=== PATIENT | female | born 1970 | race Caucasian/White ===

== ENCOUNTER 2020-01-15 16:19 | Emergency (ER) | payer OTHER, SELFPAY ==
[2020-01-15 16:24] VITALS: BP 128/80; PULSE 83; RESP 18; TEMP 37.2; O2SAT 100; BMI 29.2
[2020-01-15] MEDS: Lidocaine HCl 2 % MPF 5 ML VIAL SUBCUT (17:35)
--- NOTE | 2020-01-15 17:36 | PC.NURSE ---
Judy GREER to bedside for suture to left middle and ring finger
[2020-01-15 18:00] VITALS: BP 138/94; PULSE 81; RESP 16; O2SAT 99
--- NOTE | 2020-01-15 18:35 | ED_ITS ---
HPI - Wound/Laceration General Chief Complaint: Wound/Laceration Stated Complaint: laceration Time Seen by Provider: 01/15/20 17:18 Source: patient Mode of arrival: ambulatory Limitations: no limitations History of Present Illness HPI narrative: Patient tells me she was trimming her bushes with a shuttlecock feather trimmer and missed causing a laceration to her left middle and index finger. Her tetanus is out of date. She was seen at urgent care referred to the emergency department for further bleeding. Onset (ago): day(s) Place: home Patient tetanus UTD: No Context: accidental Associated symptoms: none Related Data Home Medications Medication Instructions Recorded Confirmed citalopram 20 mg tablet 20 mg PO DAILY 01/15/20 01/15/20 Allergies Allergy/AdvReac Type Severity Reaction Status Date / Time amoxicillin Allergy Intermediate Rash Verified 01/15/20 16:30 TAPE,PLASTIC Allergy Intermediate RASH Uncoded 12/14/19 19:18 ITCHING Review of Systems Review of Systems: Yes all other systems are reviewed and are negative Constitutional: Constitutional: Reports no additional constitutional complaints, Denies body ache(s), Denies chills, Denies fever(s), Denies headache(s) and Denies weakness Eyes: Eyes: Reports no additional eye complaints and Denies change in vision ENT: Reports system reviewed and no additional complaints, except as documented, Denies dizziness, Denies headache(s), Denies nasal congestion, Denies nasal discharge and Denies neck pain Cardiovascular: Cardiovascular: Reports no additional cardiovascular complaints, Denies chest pain, Denies leg edema and Denies dyspnea Respiratory: Respiratory: Reports no additional respiratory complaints, Denies cough and Denies dyspnea Gastrointestinal: Gastrointestinal: Reports no additional gastrointestinal complaints, Denies abdominal pain, Denies diarrhea, Denies nausea and Denies vomiting Genitourinary: Genitourinary: Reports no additional female genitourinary complaints and Denies urinary incontinence Musculoskeletal: Musculoskeletal: Reports no additional musculoskeletal complaints, Denies back pain, Reports arthralgias, Denies joint swelling, Denies neck pain, Denies numbness and Denies tingling Integumentary/Breasts: Skin/Breast: Reports system reviewed and no additional complaints, except as docu and Denies rash Neurologic: Reports system reviewed and no additional complaints, except as documented, Denies Abnormal speech present, Denies dizziness, Denies headache(s), Denies numbness, Denies tingling and Denies weakness PMF Past Medical History Attestation statement: The following information was validated with the patient. Source: obtained from family and nursing notes reviewed Social History Social History Smoking Status: Never smoker Smoked in Last 30 Days: No Use of substances other than those prescribed or required for medical reasons: No Advance Directives: No Advance Directives Information Provided: No Physical Exam Vital Signs: Vital Signs: Vital Signs Temp Pulse Resp BP Pulse Ox 01/15/20 18:00 81 16 138/94 H 99 01/15/20 16:24 98.9 F 83 18 128/80 100 Body Mass Index 29.2 Const: General: cooperative, healthy appearing, comfortable and no acute distress Orientation/consciousness: patient oriented x3 Limitations: no limitations HENMT: Head: Yes normal to inspection Ears: hearing grossly normal bilaterally General nose exam: Normal external nose present Face and sinus: Yes normal facial exam Mouth: Normal oral and palatal mucosa present Throat: Yes posterior oropharynx normal Eyes: General: appearance normal, both eyes and all related structures Pupils: Equal, round and reactive pupils present Neck: Neck: Yes normal visual inspection Chest: Chest palpation & inspection: normal inspection of the chest Resp: Effort & Inspection: normal respiratory effort Auscultation: clear to auscultation bilaterally Cardio: Rate: regular rate Rhythm: regular rhythm Peripheral pulses: Pe ripheral pulses 2+ throughout GI: Inspection: Yes normal to inspection Palpation (GI): Soft to palpation and nontender Auscultation: normal bowel sounds Back/Spine/Pelvis: Thoracic/Lumbar Spine: thoracic and lumbar spine normal to inspection Skin: General skin exam: no rashes or lesions noted Neuro: General: patient oriented x3, no focal motor deficits and normal sensation to monofilament Cranial nerves: Yes Equal, round and reactive pupils present Cognition (Neuro): normal cognition Speech: No Abnormal speech present Gait exam (Neuro): Normal gait present Motor exam (neuro): 5/5 motor strength present throughout Extrem: Other: To the volar aspect of the distal 3rd and 4th digits there are 2 lacerations. Over the 4th digit there is approximately 1 cm laceration noted to the volar aspect. Full range of motion of affected digit. Neurovascularly intact distally. Bleeding is controlled. Over the 3rd digit there is approximately a 2 cm laceration to the volar aspect. There is slight brisk bleeding noted. Full range of motion of the affected digit. Neurovascularly intact distally. General: Yes normal to inspection Procedures Laceration Laceration 1: Site: other ( Fourth digit) Side (If applicable): left Size (cm): 1 Description: linear Depth: simple, single layer Local Anesthetic: lidocaine 2% Pre-repair: wound explored and irrigated extensively Skin layer closed with: nylon Size (cm): 5-0 Number of sutures: 3 Technique: simple, interrupted Laceration 2: Site: other ( 3rd digit) Side (If applicable): left Size (cm): 2 Description: linear Depth: simple, single layer Local Anesthetic: lidocaine 2% Pre-repair: wound explored and irrigated extensively Skin layer closed with: nylon Size (cm): 5-0 Number of sutures: 4 Technique: simple, interrupted Discharge Plan Discharge Clinical Impression: Laceration Patient Disposition: Home, Self-Care Instructions: Finger Laceration (ED) Additional Instructions: sutures out in 7-10 days wash every day with soap and water Prescriptions: No Action citalopram 20 mg tablet 20 mg PO DAILY RF: 0 Referrals: José Luis Pepe MD [Primary Care Provider] - 2 days Interventions: ED Discharge Assessment Last Done: 01/15/20 18:21 Discharge Date/Time: 01/15/20 18:22
== END 2020-01-15 18:22 | disposition home or self-care (01) ==
PROVIDERS: Emergency Provider Emergency Medicine; PCP Internal Medicine
DX: S61.215A Laceration without foreign body of left ring finger without damage to nail, initial encounter (principal); S61.213A Laceration without foreign body of left middle finger without damage to nail, initial encounter; S60.419A Abrasion of unspecified finger, initial encounter; M79.642 Pain in left hand; W27.8XXA Contact with other nonpowered hand tool, initial encounter; Y93.H2 Activity, gardening and landscaping; Y92.007 Garden or yard of unspecified non-institutional (private) residence as the place of occurrence of the external cause; Y99.9 Unspecified external cause status; Z79.899 Other long term (current) drug therapy; Z23 Encounter for immunization
CPT/HCPCS: 12002; 90471; 90715; 99284

== ENCOUNTER 2021-11-27 14:19 | Outpatient (REF) | payer OTHER, SELFPAY ==
[2021-11-27 16:33] LABS: MANUAL DIFF FLAG NO
[2021-11-27 16:38] LABS: Basophils Percent Auto 0.7 % (0-2); Eosinophils Absolute Auto 0.1 X10*3/uL (0.0-0.4); Eosinophils Percent Auto 2.5 % (0-4); Hematocrit 42.5 % (37.0-47.0); Hemoglobin 14.4 g/dl (12.0-16.0); Imm Gran Abs Auto 0.02 X10*3/uL (0.00-0.03); Imm Gran Pct Auto 0.4 % (0.0-0.4); Lymphocytes Absolute Auto 2.8 X10*3/uL (1.2-4.9); Lymphocytes Percent Auto 48.7 % (20-40); Mean Corpuscular HGB Conc 33.9 g/dl (31.0-35.0); Mean Corpuscular Hemoglobin 32.2 pg (27.0-33.0); Mean Corpuscular Volume 95.1 fL (80.0-98.0); Mean Platelet Volume 10.7 fL (9.4-12.3); Monocytes Absolute Auto 0.5 X10*3/uL (0.1-1.2); Monocytes Percent Auto 7.9 % (2-11); Neutrophils Absolute Auto 2.3 x10*3/uL (2.0-8.3); Neutrophils Percent Auto 39.8 % (45-73); Platelet Count 255 X10*3/uL (160-400); Red Blood Count 4.47 X10*6/uL (4.20-5.50); White Blood Count 5.7 X10*3/uL (4.8-10.8)
[2021-11-27 16:51] LABS: Alanine Aminotransferase 13 U/L (0-31); Albumin Level 4.6 g/dL (3.5-5.0); Alkaline Phosphatase 45 U/L (39-117); Anion Gap 16 (12-20); Aspartate Amino Transferase 13 U/L (5-31); Bilirubin Total 0.6 mg/dL (0.0-1.0); Blood Urea Nitrogen 17 mg/dL (9-16); Calcium 9.5 mg/dL (8.4-10.2); Carbon Dioxide 24 mmol/L (22-29); Chloride 103 mmol/L (96-108); Cholesterol 202 mg/dL; Estimated Glomerular Filt Rate > 60; Glucose Fasting 74 mg/dL (60-99); HDL Cholesterol 58 mg/dL; LDL Cholesterol Calculated 135 mg/dl; Potassium 4.4 mmol/L (3.3-5.1); Rheumatoid Factor < 15.0 IU/mL (<15.0); Sodium 139 mmol/L (135-145); Total Protein 6.9 g/dL (6.5-8.0); Triglycerides 49 mg/dL
[2021-11-29 15:21] LABS: CRP High Sensitivity 1.9 mg/L
[2021-12-01 16:56] LABS: Anti Nuclear Antibody Screen NEGATIVE (NEGATIVE)
== END 2021-11-27 14:20 | disposition home or self-care (01) ==
LOC: HO.HMGCLDS 14:19
PROVIDERS: Internal Medicine; PCP Internal Medicine; Visit Provider Internal Medicine
DX: Z00.01 Encounter for general adult medical examination with abnormal findings (principal); K64.4 Residual hemorrhoidal skin tags; M25.50 Pain in unspecified joint; F32.A Depression, unspecified; F41.9 Anxiety disorder, unspecified
CPT/HCPCS: 36415; 80053; 80061; 82306; 84443; 85025; 86038; 86039; 86141; 86431

== ENCOUNTER 2022-06-11 10:56 | Day surgery (SDC) | payer OTHER, SELFPAY ==
[2022-06-08 12:45] VITALS: BMI 28.5
--- NOTE | 2022-06-10 13:00 | P.CONAN_ITS ---
Documented by User: Jennifer Lamb NP 06/10/22 13:01 HPI - Anesthesia Eval Consult details Narrative: 52yo F for Colonoscopy PMFSH Active Problems Active Problems: All Active Problems (Updated 12/25/21 @ 10:04 by GEGE Soriano) Pre-op examination (Acute) Polyarthralgia (Acute) External hemorrhoids (Acute) Anxiety and depression (Acute) Laceration of left middle finger (Acute) Past Medical History Medical History Anxiety and depression External hemorrhoids History of cystocele HX: benign breast biopsy Polyarthralgia Tear of meniscus of left knee Family History Family History Sister Breast cancer, Onset Age: 38 Mother Breast cancer Father Esophageal cancer Maternal Uncle Colon cancer Surgical History Surgical History H/O arthroscopy of shoulder Hx of cervical discectomy Hx of LASIK Social History Social History Housing: House Patient Tobacco Use Status: Never used Tobacco e-Cigarette/Vaping Use: Never Used Are you DNR?: No Advance Directives: No Advance Directives Information Provided: Yes Nutrition Risks: No Nutritional Risk service: No Current occupational status: employed Cognitive needs: No Hearing needs: No Vision needs: Yes Meds Allergies Allergy/AdvReac Type Severity Reaction Status Date / Time TAPE,PLASTIC Allergy Intermediate rash/itchin Uncoded 06/08/22 12:43 g Home Medications Medication Instructions Recorded Confirmed Last Taken Type levonorgestrel 20.4 mcg/24 hrs (8 intrauterine 11/25/21 Unknown History yrs) 52 mg intrauterine device (Liletta) Exam Exam Date and Time: June 10, 2022 1300 Height,Weight and Vital Signs: Height 5 ft Weight 66.224 kg Pertinent Lab Results Pertinent Lab Results: Laboratory Tests 11/27/21 11/27/21 14:37 14:37 WBC 5.7 Hgb 14.4 Hct 42.5 Plt Count 255 Sodium 139 Potassium 4.4 Chloride 103 Carbon Dioxide 24 BUN 17 H Creatinine 0.69 Assessment and Plan Assessment Anesthesia Assessment: Chart Reviewed Documented by User: Sid Henao MD 06/11/22 11:53 PMFSH Past Medical History Medical History Anxiety and depression External hemorrhoids History of cystocele HX: benign breast biopsy Polyarthralgia Tear of meniscus of left knee Family History Family History Sister Breast cancer, Onset Age: 38 Mother Breast cancer Father Esophageal cancer Maternal Uncle Colon cancer Family history of problems with anesthesia: No Surgical History Surgical History H/O arthroscopy of shoulder Hx of cervical discectomy Hx of LASIK History of Problems with Anesthesia: No Social History Social History Housing: House Patient Tobacco Use Status: Never used Tobacco e-Cigarette/Vaping Use: Never Used Are you DNR?: No Advance Directives: No Advance Directives Information Provided: Yes Nutrition Risks: No Nutritional Risk service: No Current occupational status: employed Cognitive needs: No Hearing needs: No Vision needs: Yes Meds Allergies Allergy/AdvReac Type Severity Reaction Status Date / Time TAPE,PLASTIC Allergy Intermediate rash/itchin Uncoded 06/08/22 12:43 g Home Medications Medication Instructions Recorded Confirmed Last Taken Type levonorgestrel 20.4 mcg/24 hrs (8 intrauterine 11/25/21 Unknown History yrs) 52 mg intrauterine device (Liletta) Exam Airway Mallampati Class: I TM Dist: >3cm Neck ROM: Full Loose/Missing/Broken Teeth: No Heart: ok Lungs: ok Assessment and Plan Final Anesthetic Review Family History of Problems with Anesthesia: No History of Problems with Anesthesia: No NPO: Yes ASA Class: II Final Preanesthetic Review: No Changes in Pt Med Stat, Meds/Allgs Chart Re viewed, Consent Obtained/Reviewed and Anes Risks/Benef Reviewed Patient Risk: Low Procedure Risk: Low Anesthetic Plan Anesthetic Plan: MAC: and Agree w/ Assess. and Plan Disposition: Standard PACU
[2022-06-11 11:36] LABS: UPreg QC Valid YES; Urine Pregnancy NEGATIVE (NEGATIVE)
[2022-06-11] MEDS: Lactated Ringers 1,000 ML 100 ML IVCONT (11:39)
[2022-06-11 11:47] VITALS: BP 116/87; PULSE 81; RESP 18; TEMP 37.1; O2SAT 99
--- NOTE | 2022-06-11 11:49 | MHC.SHP ---
Pre-Procedural Eval Section A Date of Service: 06/11/22 Section B Chief Complaint: screening Details of Present Illness: uncle with hx of crc aged 50 Relevant Family History (Specify if Yes): Yes Relevant Social History: None Present Medications: see Short Stay Collaborative assessment Medical History: Significant History (Anxiety and depression External hemorrhoids History of cystocele HX: benign breast biopsy Polyarthralgia Tear of meniscus of left knee) History of Previous Operations: Relevant previous surgery/procedure and date(s) (H/O arthroscopy of shoulder Hx of cervical discectomy Hx of LASIK) Allergies: Allergies Allergy/AdvReac Type Severity Reaction Status Date / Time TAPE,PLASTIC Allergy Intermediate rash/itchin Uncoded 06/08/22 12:43 g Review of Systems Sugical H&P ROS: Negative: Constitution, Cardiovascular, Respiratory, Neurological, Psychiatric, Hem-Onc, Allergic/Immunologic, Gastrointestinal, Genitourinary, Musculoskeletal, Integumentary, Endocrine and Eyes/Ears/Nose/Throat Exam Surgical H&P Exam: Normal: HEENT, Normal: Heart, Normal: Lungs, Normal: Extremities, Normal: Abdomen, Normal: Skin and Normal: Neurological Plan Diagnosis/Plan: Unchanged I have reviewed the history and physical and performed a pertinent physical examination on my patient. No changes have occurred unless specified. Time Spent With Patient Time: Total time managing care of this patient today ____ minutes.
--- NOTE | 2022-06-11 12:03 | W.PM.OPN ---
Operative Note Operative Note Date of Service: 06/11/22 Narrative: Operative Information Procedure Description: Colonoscopy Indication: screening Anesthesia: MAC COLONOSCOPY Instrument: Olympus variable stiffness pediatric scope 190L Colonoscopy Monitoring: Vital signs and clinical assessment, continuous EKG monitoring, Pulse oximetry, Carbon Dioxide monitoring and blood pressure monitoring were done throughout the procedure. Colon withdrawal time was 10 minutes. Procedure: The patient was placed in the left lateral decubitis position and pre-procedure medications were administered. After a digital rectal examination of the ano-rectum, the video colonoscope was inserted into the rectum and advanced through the colon to the cecum/TI. The colonoscope was slowly withdrawn in a retrograde panoramic fashion and the colon mucosa was carefully examined including a retroflexed view of the rectum. Findings and interventions are described below. Procedure Difficulty: easy Findings: Terminal Ileum-normal Cecum:normal Ascending Colon: few scattered diverticula incl inverted diverticulum Transverse Colon -normal Descending Colon:normal Sigmoid Colon: moderate diverticulosis Rectum: Retroflexion with small internal hemorrhoids, grade I, at 12 cm from anal verge pedunculated polyp noted -injected with 1 cc of epinephrine then removed with hot snare and surrounding area ablated with soft tip coag, then one clip applied to close defect Anorectum - normal Colon preparation: [place] Bowel Preparation Scale Right colon; 2 Transverse colon: 3 Left colon; 3 (0 = Unprepared colon segment with mucosa not seen due to solid stool that cannot be cleared. 1 = Portion of mucosa of the colon segment seen, but other areas of the colon segment not well seen due to staining, residual stool and/or opaque liquid. 2 = Minor amount of residual staining, small fragments of stool and/or opaque liquid, but mucosa of colon segment seen well. 3 = Entire mucosa of colon segment seen well with no residual staining, small fragments of stool or opaque liquid) Impression and Post Procedure Diagnosis: polyp internal hemorrhoids diverticular disease Plan: High fiber diet leaflet Avoid straining at stool, epsom salts and sitz bath, anusol supps or cream Repeat Colonoscopy in 3 years or earlier if clinically indicated Above findings were reviewed with the patient and relevant handouts were provided if indicated.
[2022-06-11 12:33] VITALS: BP 96/48; PULSE 84; RESP 18; TEMP 36.4; O2SAT 96
[2022-06-11 12:48] VITALS: BP 98/66; PULSE 78; RESP 16; O2SAT 98
[2022-06-11 12:56] VITALS: BP 112/67; PULSE 76; RESP 16; TEMP 36.2; O2SAT 98
== END 2022-06-11 13:39 | disposition home or self-care (01) ==
PROVIDERS: Anesthesiology; PCP Internal Medicine; Visit Provider Internal Medicine Gastroenterology
PROC: 0DJD8ZZ Inspection of Lower Intestinal Tract, Via Natural or Artificial Opening Endoscopic (ICD-10-PCS; CPT 45378; principal; 2022-06-11 12:00)
DX: Z12.11 Encounter for screening for malignant neoplasm of colon (principal); D12.8 Benign neoplasm of rectum; K57.30 Diverticulosis of large intestine without perforation or abscess without bleeding; K64.0 First degree hemorrhoids; K64.4 Residual hemorrhoidal skin tags; M25.50 Pain in unspecified joint; F41.8 Other specified anxiety disorders; L23.1 Allergic contact dermatitis due to adhesives; Z79.899 Other long term (current) drug therapy; Z98.890 Other specified postprocedural states
CPT/HCPCS: 45385; 45381; 81025; 88305; J0171

== ENCOUNTER → 2022-06-25 08:00 | Outpatient (BNVA) | payer OTHER, SELFPAY | PROVIDERS: PCP Internal Medicine; Referring Provider Internal Medicine; Visit Provider Nurse Practitioner | DX: Z13.89 Encounter for screening for other disorder (principal) ==

== ENCOUNTER 2022-11-26 07:52 | Outpatient (AMB) | payer OTHER, SELFPAY ==
--- NOTE | 2022-11-26 07:59 | MHC.PC.OV ---
Vital Signs 11/26/22 08:01 Height 5 ft Weight 138 lb BMI 26.9 BP 98/60 Blood Pressure Location Lt brachial Position Sitting Pulse 90 Pulse Source Pulse Oximeter Pulse Oximetry (%) 99 Oxygen Delivery Method Room Air Intake Visit Reasons: PE Intake Note: Pt is here today for her PE Allergies TAPE,PLASTIC Allergy (Intermediate, Uncoded 11/26/22 08:09) rash/itching Medication List - Last Reconciled 11/26/22 by Emily Desai MD celecoxib (Celebrex) 200 mg PO DAILY PRN levonorgestrel (Liletta) intrauterine sertraline (Zoloft) 50 mg PO DAILY triamcinolone acetonide 0.025% 1 appl topical BID 10 days Tobacco use date assessed: 11/26/22 Dental Screening Dental Screen Date: 11/26/22 Did you have a dental visit in the last 12 months?: Yes Did you have a dental problem in the last 6 months where you did not have access to dental care?: No Was dental information given to patient?: Patient has dentist HPI PE HPI Details 52-year-old lady presents today for a physical exam. She is up-to-date with her screening mammogram and screening colonoscopy. May remove the tubulovillous adenoma, and a repeat colonoscopy is to be scheduled in a year. Has an appointment to see Kathy Hagan next month for follow-up. She sees Dr. Lopez for her routine Pap and pelvic exam , still with an IUD in place. She takes sertraline for anxiety and depression , feels well on current dose but has been having more frequent anxiety attacks and mood swings. 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 History of torn meniscus in left knee, currently being seen by Dr. Bennett who has done cortisone injections in her knee. [facility] Medical History (Updated 11/26/22 @ 08:46 by Emily Desai MD) Anxiety and depression Dyslipidemia External hemorrhoids History of cystocele HX: benign breast biopsy Polyarthralgia Tear of meniscus of left knee Vitamin D deficiency Surgical History H/O arthroscopy of shoulder Hx of cervical discectomy Hx of LASIK Family History Sister Breast cancer, Onset Age: 38 Mother Breast cancer Father Esophageal cancer Maternal Uncle Colon cancer Social History Housing: House Patient Tobacco Use Status: Never used Tobacco e-Cigarette/Vaping Use: Never Used service: No Current occupational status: employed Cognitive needs: No Hearing needs: No Vision needs: Yes Questionnaire PHQ-9 Over the last 2 weeks, how often have you been bothered by any of the following problems? 1. Little interest or pleasure in doing things: several days 2. Feeling down, depressed, or hopeless: several days 3. Trouble falling or staying asleep, or sleeping too much: several days 4. Feeling tired or having little energy: several days 5. Poor appetite or overeating: several days 6. Feeling bad about yourself - or that you are a failure or have let yourself or your family down: not at all 7. Trouble concentrating on things, such as reading the newspaper or watching television: several days 8. Moving or speaking so slowly that other people could have noticed. Or the opposite - being so fidgety or restless that you have been moving around a lot more than usual: not at all 9. Thoughts that you would be better off or of hurting yourself in some way: not at all Total score: 6 Depression Screening Interpretation: Positive Depression Screening Follow-up: Existing condition, In treatment and Change in Medication (Advised to try increasing her dose of sertraline to 75 mg daily) 01958 - PHQ-9 Billing: Yes Source: Developed by Drs. Chidi Carbone, Olimpia Booth, Williams Luo and colleagues, with an educational dawn from [employer]. Thrive Questionnaire Date Thrive assessed: 11/26/22 I am a: Patient What is your living situation today?: I have a steady place to live Within the past 12 months, did the food you bought not last and you didn't have the money to get more?: Never true Within the past 12 months, did you worry whether your food would run out before you got money to buy more?: Never true Do you have trouble paying for medicines?: No Do you have trouble getting transportation to medical appointments?: No Do you have trouble paying your heating and electricity bill?: No Do you have trouble taking care of your child, family member or friend?: No Do you have trouble with day-to-day activities such as bathing, preparing meals, shopping, managing finances, etc.?: No Are you currently unemployed and looking for a job?: No Are you interested in more education?: No Please select the resources that you would like help with: None AUDIT C Alcohol Use Questionnaire (AUDIT-C) 1. How often do you have a drink containing alcohol?: Monthly or less 2. How many drinks containing alcohol do you have on a typical day when you are drinking?: 1 or 2 3. How often do you have six or more drinks on one occasion?: Never Total Score: 1 Score Reviewed/Action Taken: Yes MIGUEL ÁNGEL-7 AMB Questionnaire MIGUEL ÁNGEL-7 Date MIGUEL ÁNGEL - 7 assessed: 11/25/21 Feeling nervous, anxious, or on edge: 2 = More than half the days Not being able to stop or control worryin = Not at all Worrying too much about different things: 1 = Several days Trouble relaxin = Several days Being so restless that it is hard to sit still: 0 = Not at all Becoming easily annoyed or irritable: 2 = More than half the days Feeling afraid as if something awful might happen: 1 = Several days Total MIGUEL ÁNGEL-7 score (0-4 normal; 5-9 mild; 10-14 moderate; 15-21 severe): 7 Source: Developed by Drs. Chidi Carbone, Olimpia Booth, Williams Luo and colleagues, with an educational dawn from [employer]. MIGUEL ÁNGEL-7 Assessment Billing MIGUEL ÁNGEL-7 Assessment Tool: MIGUEL ÁNGEL-7 Assessment 48578 Review of Systems Const Reports difficulty sleeping, Denies fatigue, Denies fever(s), Denies headache(s), Denies night sweats and Denies weight loss Eyes Details: glasses Denies change in vision and Reports requires corrective lenses ENT Reports Normal hearing present, Denies dysphagia, Denies dizziness, Denies headache(s), Denies nasal congestion and Denies disequilibrium Card Denies chest pain, Denies rapid heart rate, Denies irregular heart rhythm, Denies lightheadedness and Denies dyspnea Resp Denies cough and Denies dyspnea GI Denies abdominal pain, Denies melena, Denies bloating, Denies hematochezia, Denies change in bowel habits, Denies change in stool character, Denies dysphagia, Denies excessive flatus, Denies early satiety and Denies heartburn Reports no additional complaints and Denies nipple discharge Musc Denies abnormal gait, Reports back pain (Occasional), Reports arthralgias (Knees and elbow), Denies joint swelling, Denies muscle weakness and Reports stiffness Skin/Breast Details: Nontender nodular lesion on right for Denies breast swelling, Denies breast skin changes, Denies breast pain, Denies breast mass, Denies pruritus, Denies lesions, Denies nipple discharge, Denies rash and Denies unusual bruising Neuro Reports Normal hearing present, Denies Abnormal speech present, Denies abnormal gait, Denies dizziness, Denies headache(s), Denies paresthesias and Denies disequilibrium Psych Reports as per HPI Endo Denies fatigue, Denies polyphagia, Denies polydipsia and Denies polyuria Ruddy/Lymph Reports no additional complaints Aller/Immun Reports no additional complaints Physical exam (Primary Care) Vital Signs: Last Vital Signs Pulse 90 11/26/22 08:01 BP 98/60 11/26/22 08:01 Pulse Ox 99 11/26/22 08:01 Oxygen Delivery Method Room Air 11/26/22 08:01 BMI result Body Mass Index 26.9 Tobacco/Smoking Status: Tobacco use Status Tobacco use date assessed 11/26/22 11/26/22 08:03 Patient Tobacco Use Status Never used Tobacco 11/26/22 08:00 e-Cigarette/Vaping Use Never Used 11/26/22 08:00 Depression Screening Interpretation: Positive Depression Screening Follow-up: Existing condition, In treatment and Change in Medication (Advised to try increasing her dose of sertraline to 75 mg daily) Const Other: Alert oriented x3, no acute distress noted, ambulatory normal gait Nutritional Appearance: average body habitus Orientation/consciousness: patient oriented x3 HENMT Head: Yes normocephalic and Yes atraumatic Ears: TM's normal bilaterally and EAC's normal General nose exam: Normal external nose present and No nasal discharge present Face and sinus: Yes face symmetric Mouth: Normal oral and palatal mucosa present and oropharynx normal Teeth and gingiva: dentition normal Eyes General: appearance normal, both eyes and all related structures Alignment and Position: alignment normal Periorbital: periorbital findings normal Eyelids: Yes eyelids normal Conjunctivae: conjunctivae normal Sclerae: sclerae normal Pupils: Equal, round and reactive pupils present EOM: EOMs intact bilaterally Neck Neck: Yes full ROM, Yes no lymphadenopathy and Yes supple Thyroid: Thyroid normal (Nonpalpable) Chest Chest palpation & inspection: normal inspection of the chest Breast/axilla palpation: normal palpation of the breasts Resp Effort & Inspection: normal respiratory effort and able to speak in complete sentences Auscultation: clear to auscultation bilaterally Cardio Other: S1-S2 present regular rate and rhythm Bruits: no abdominal aortic bruits Peripheral pulses: popliteal pulses present, posterior tibial pulses present and dorsalis pedis present GI Palpation (GI): No Abdominal aortic bruit present, Soft to palpation, nontender and no masses Auscultation: normal bowel sounds General: Yes no CVA tenderness and Yes deferred (Currently sees OBGYN- Dr. Lopez) Back/Spine/Pelvis Back: no CVA tenderness and No back tenderness Skin Lesions: other (Small nontender mobile nodular lesion on right forearm) Rashes: no rashes Neuro General: patient oriented x3, gait normal, moves all extremities, Normal light touch and pain sensation, no focal motor deficits and CN's II-XI intact bilaterally Cranial nerves: Yes Equal, round and reactive pupils present and Yes Normal hearing present Speech: No Abnormal speech present Gait exam (Neuro): Normal gait present Motor exam (neuro): 5/5 motor strength present throughout Extrem General: Yes full ROM, Yes no joint enlargement, Yes no pedal edema, Yes no calf tenderness and Yes normal gait Psych Appearance: grossly normal and well kempt Mental Status: mental status grossly normal Speech and movement: Normal speech and movement present Affect: normal affect Attitude: cooperative Thought process: Normal thought process present Thought content: Normal thought content present Assessment and Plan Assessment & Plan (1) Annual visit for general adult medical examination with abnormal findings: Code(s): Z00.01 - Encounter for general adult medical examination with abnormal findings Plan: Will check appropriate labs. Continue regular dental visit every 6 months and advised schedule her regular eye exams, at least every 2 years. Take adequate calcium in diet and vitamin-D 3 at 2000 IU per cap once a day, in addition to weight-bearing exercises to help maintain good muscle tone and weight control. Instructed to do self-breast exam, and into to get yearly mammogram, currently up-to-date. She sees Dr. Lopez for her routine Pap and pelvic exam. She gets yearly flu vaccine, does not want to get any further COVID vaccinations, has had 1 Shingrix vaccine, reminded that she is due for her 2nd dose, up-to-date with her Tdap. She has an appointment for a follow-up regarding her colon cancer screening next month, has had a tubulovillous adenoma removed earlier this year (2) Skin cancer screening: Code(s): Z12.83 - Encounter for screening for malignant neoplasm of skin Plan: Dermatology consult ordered, advised to use sunscreen as directed (3) Anxiety and depression: Code(s): F41.9 - Anxiety disorder, unspecified; F32.A - Depression, unspecified Plan: Has been having more frequent anxiety attacks lately, may try increasing sertraline dose to 75 mg daily in let me know what dose she is now taking when she refills her prescription. (4) Vitamin D deficiency: Code(s): E55.9 - Vitamin D deficiency, unspecified Plan: Vitamin-D level ordered (5) Dyslipidemia: Code(s): E78.5 - Hyperlipidemia, unspecified Plan: Reviewed r last year fasting lipid profile with patient with mild elevation in her LDL cholesterol but HDL cholesterol and triglycerides are within normal limits. Will repeat another fasting lipid panel this year Advised adherence to low-cholesterol diet and regular exercise, at least 30 minutes 3 to 4 times a week. Advised patient to make healthy food choices, eat more fruits, vegetables, whole grains, wild caught fish and low-fat dairy. Limit amount of meat and fried or fatty food products, as well as processed foods and fast foods. Orders: Orders Alanine Aminotransferase Today F32.A - Depression, unspecified, F41.9 - Anxiety disorder, unspecified, Z00.01 - Encounter for general adult medical examination with abnormal findings Aspartate Amino Transferase Today F32.A - Depression, unspecified, F41.9 - Anxiety disorder, unspecified, Z00.01 - Encounter for general adult medical examination with abnormal findings Glucose Fasting Today F32.A - Depression, unspecified, F41.9 - Anxiety disorder, unspecified, Z00.01 - Encounter for general adult medical examination with abnormal findings Lipid Panel Today F32.A - Depression, unspecified, F41.9 - Anxiety disorder, unspecified, Z00.01 - Encounter for general adult medical examination with abnormal findings Vitamin D 25-OH Total Today F32.A - Depression, unspecified, F41.9 - Anxiety disorder, unspecified, Z00.01 - Encounter for general adult medical examination with abnormal findings Referrals Dermatology Referral Z12.83 - Encounter for screening for malignant neoplasm of skin Coding Level of Care Code Est Pt Prev Care 40-64y(52454) Diagnoses Annual visit for general adult medical examination with abnormal findings Z00.01 Skin cancer screening Z12.83 Anxiety and depression F41.9; F32.A Vitamin D deficiency E55.9 Dyslipidemia E78.5 Additional Codes MIGUEL ÁNGEL-7 Assessment Billing - MIGUEL ÁNGEL-7 Assessment Tool: MIGUEL ÁNGEL-7 Assessment 05953 ([id number])
[2022-11-26 08:01] VITALS: BP 98/60; PULSE 90; O2SAT 99; BMI 26.9
== END 2022-11-26 08:29 | disposition home or self-care (01) ==
PROVIDERS: PCP Internal Medicine; Visit Provider Internal Medicine
DX: Z00.00 Encounter for general adult medical examination without abnormal findings (principal); F41.9 Anxiety disorder, unspecified; E55.9 Vitamin D deficiency, unspecified; Z12.83 Encounter for screening for malignant neoplasm of skin; F32.A Depression, unspecified; E78.5 Hyperlipidemia, unspecified
CPT/HCPCS: 99396

== ENCOUNTER 2022-11-26 08:30 | Outpatient (REF) | payer OTHER, SELFPAY ==
[2022-11-26 12:21] LABS: Alanine Aminotransferase 9 U/L (0-31); Aspartate Amino Transferase 10 U/L (5-31); Cholesterol 194 mg/dL (<200); Glucose Fasting 78 mg/dL (60-99); HDL Cholesterol 50 mg/dL (>40); LDL Cholesterol Calculated 134 mg/dL (<100); Triglycerides 50 mg/dL (<150)
[2022-11-26 12:37] LABS: Vitamin D 25-OH Total 77.2 ng/mL (>30)
== END 2022-11-26 08:31 | disposition home or self-care (01) ==
LOC: HO.HMGCLDS 08:30
PROVIDERS: PCP Internal Medicine; Visit Provider Internal Medicine
DX: Z00.01 Encounter for general adult medical examination with abnormal findings (principal); F32.A Depression, unspecified; F41.9 Anxiety disorder, unspecified
CPT/HCPCS: 36415; 80061; 82306; 82947; 84450; 84460

== ENCOUNTER 2022-12-25 08:04 | Outpatient (AMB) | payer OTHER, SELFPAY ==
--- NOTE | 2022-12-25 08:17 | A.OFFVIS_ITS ---
Intake Vital Signs 12/25/22 08:20 Height 5 ft Weight 130 lb BMI 25.4 BP 108/68 Blood Pressure Location Lt brachial Position Sitting Pulse 81 Intake Visit Reasons: 6 month fu Intake Note: Patient follow up for Colonoscopy results Patient cc: Nauseas, headaches, constipation, and denies any other GI issues. Tax Lawyer Required: No Accompanied by: Self / Same As Patient Allergies TAPE,PLASTIC Allergy (Intermediate, Uncoded 11/26/22 08:09) rash/itching HPI 6 month fu HPI Details Assessment & Plan (1) Tubulovillous adenoma of colon: Comment: 05/2022 scope=tVA, rov 6 mos and 1 year scope repeat aeb Code(s): D12.6 - Benign neoplasm of colon, unspecified Plan: The procedure needs to be repeated in 1 year due to the finding of a tubular villous adenoma. The procedure was well tolerated. The results were explained and the patient is agreeable to the follow-up interval as stated. The bowel pattern has returned to normal. Education was provided to tell any 1st degree relatives about their findings to be sure that they are screened by age 45. Educated that they will be put on a recall list when it is time for their repeat scope but should they move out of state or away from the hospital they will need to remember along with their primary to repeat the procedure in a timely fashion to avoid any adverse complications. TODAY'S VISIT She thinks she had COVID as she had an acute illness with URI sx and GARCIA's and she has continued nausea and diarrhea. I advise her that this will take time and I advise a light diet and lots of clear liquids. If this does not resolve in due time she is welcome back to my office for further workup and consideration. There are no prior problems with anesthesia or sedation. She denies any cardiac or respiratory problems. No ID problems She had a maternal uncle who of CRC and there is breast cancer in the family. [facility] Medical History (Updated 11/26/22 @ 08:46 by Emily Desai MD) Dyslipidemia Vitamin D deficiency Polyarthralgia History of cystocele External hemorrhoids Tear of meniscus of left knee HX: benign breast biopsy Anxiety and depression Surgical History Hx of LASIK H/O arthroscopy of shoulder Hx of cervical discectomy Family History Sister Breast cancer, Onset Age: 38 Mother Breast cancer Father Esophageal cancer Maternal Uncle Colon cancer Social History Housing: House Patient Tobacco Use Status: Never used Tobacco e-Cigarette/Vaping Use: Never Used service: No Current occupational status: employed Cognitive needs: No Hearing needs: No Vision needs: Yes Review of Systems Const Denies fatigue, Denies fever(s), Reports headache(s), Denies night sweats, Reports poor appetite and Denies weight loss Eyes Details: glasses Reports requires corrective lenses ENT Reports Normal hearing present, Denies dental pain, Denies dysphagia, Reports headache(s), Denies hearing loss, Denies mouth pain, Denies odynophagia, Denies throat swelling, Denies tongue swelling and Reports other (Dentition adequate) Card Reports no additional complaints Resp Reports cough GI Denies abdominal pain, Denies melena, Denies bloating, Denies hematochezia, Denies constipation, Denies GI cramping, Denies dysphagia, Denies excessive flatus, Denies early satiety, Reports dyspepsia, Denies heartburn, Reports diarrhea, Reports nausea, Denies odynophagia, Denies vomiting and Denies hematemesis Skin/Breast Denies pruritus, Denies lesions, Denies rash and Denies jaundice Neuro Reports Normal hearing present, Denies Abnormal speech present and Reports headache(s) Endo Denies fatigue Aller/Immun Denies throat swelling and Denies tongue swelling Physical Exam Vital Signs: Last Vital Signs Pulse 81 12/25/22 08:20 BP 108/68 12/25/22 08:20 BMI result Body Mass Index 25.4 Const General: cooperative, no acute distress, well developed and well groomed Nutritional Appearance: average body habitus and well nourished Orientation/consciousness: oriented to person, oriented to place and oriented to time Limitations: No language barrier HEENT Head: Yes normocephalic and Yes atraumatic Eyes General: appearance normal, both eyes and all related structures Pupils: Equal, round and reactive pupils present Neck Neck: Yes normal visual inspection and Yes no lymphadenopathy Thyroid: Thyroid normal Resp Effort & Inspection: normal respiratory effort and able to speak in complete sentences Auscultation: clear to auscultation bilaterally Cardio Rate: regular rate Rhythm: regular rhythm Heart sounds: Normal, physiologic split S2 sound present Peripheral pulses: radial pulses present and posterior tibial pulses present GI Inspection: No distended and No Abdominal panniculus present Palpation (GI): Soft to palpation, nontender, no guarding, not rigid and No hepatosplenomegaly present Percussion: Yes normal to percussion Auscultation: normal bowel sounds Rectal Exam - Female: deferred Skin General skin exam: no rashes or lesions noted, turgor normal, skin not dry, no jaundice, No spider nevi and no striae Rashes: no rashes Nails: normal Neuro General: oriented to person, oriented to place and oriented to time Cranial nerves: Yes Equal, round and reactive pupils present and Yes Normal hearing present Speech: No Abnormal speech present Extrem General: Yes normal to inspection, No clubbing, No cyanosis and No edema Psych Appearance: grossly normal and well kempt Mental Status: mental status grossly normal Speech and movement: Normal speech and movement present Affect: normal affect Attitude: cooperative Thought process: Normal thought process present and not confabulating Thought content: Normal thought content present Insight: Good insight present (Psych) Judgement: Good judgement present (Psych) Assessment & Plan Assessment & Plan (1) Tubulovillous adenoma of colon: Comment: 05/2022 scope=tVA, rov 6 mos and 1 year scope repeat aeb Code(s): D12.6 - Benign neoplasm of colon, unspecified Plan: She thinks she had COVID as she had an acute illness with URI sx and GARCIA's and she has continued nausea and diarrhea. I advise her that this will take time and I advise a light diet and lots of clear liquids. If this does not resolve in due time she is welcome back to my office for further workup and consideration. There are no other new health problems that have arisen since her last visit. She is willing to go have her labs renewed so that we have the most current results. This also may be helpful in terms of her acute illness. There are no prior problems with anesthesia or sedation. She denies any cardiac or respiratory problems. No ID problems She had a maternal uncle who of CRC and there is breast cancer in the family. (2) Pre-op examination: Code(s): Z01.818 - Encounter for other preprocedural examination Orders: Orders Colonoscopy - GI Use Only Today D12.6 - Benign neoplasm of colon, unspecified Comprehensive Met. Panel Today Z01.818 - Encounter for other preprocedural examination Complete Blood Count Auto Diff Today Z01.818 - Encounter for other preprocedural examination Medications: New peg 3350-electrolytes 236-22.74-6.74 -5.86 gram (Golytely) until fecal effluent is clear; do not exceed a total volume of 2,000 mL 240 mL PO Q10M 1 day 4,000 mL 0RF Z12.11 - Encounter for screening for malignant neoplasm of colon Coding Level of Care Code Est Pt Level 4 (13099) Diagnoses Tubulovillous adenoma of colon D12.6 Pre-op examination Z01.818
[2022-12-25 08:20] VITALS: BP 108/68; PULSE 81; BMI 25.4
== END 2022-12-25 08:48 | disposition home or self-care (01) ==
PROVIDERS: PCP Internal Medicine; Visit Provider Nurse Practitioner
DX: D12.6 Benign neoplasm of colon, unspecified (principal); Z01.818 Encounter for other preprocedural examination
CPT/HCPCS: 99214

== ENCOUNTER → 2022-12-25 08:04 | Outpatient (BNVA) | payer OTHER, SELFPAY | PROVIDERS: PCP Internal Medicine; Visit Provider Nurse Practitioner ==

== ENCOUNTER 2022-12-25 09:12 | Outpatient (REF) | payer OTHER, SELFPAY ==
[2022-12-25 11:09] LABS: MANUAL DIFF FLAG NO
[2022-12-25 11:33] LABS: Basophils Percent Auto 0.7 % (0-2); Eosinophils Absolute Auto 0.3 X10*3/uL (0.0-0.4); Eosinophils Percent Auto 4.2 % (0-4); Hematocrit 41.7 % (37.0-47.0); Hemoglobin 13.8 g/dl (12.0-16.0); Imm Gran Abs Auto 0.01 X10*3/uL (0.00-0.03); Imm Gran Pct Auto 0.2 % (0.0-0.4); Lymphocytes Absolute Auto 3.1 X10*3/uL (1.2-4.9); Mean Corpuscular HGB Conc 33.1 g/dl (31.0-35.0); Mean Corpuscular Hemoglobin 31.8 pg (27.0-33.0); Mean Corpuscular Volume 96.1 fL (80.0-98.0); Mean Platelet Volume 10.7 fL (9.4-12.3); Monocytes Absolute Auto 0.4 X10*3/uL (0.1-1.2); Monocytes Percent Auto 6.9 % (2-11); Neutrophils Absolute Auto 2.1 x10*3/uL (2.0-8.3); Platelet Count 295 X10*3/uL (160-400); Red Blood Count 4.34 X10*6/uL (4.20-5.50); Red Cell Distribution Width 12.3 % (11.0-16.0); White Blood Count 5.9 X10*3/uL (4.8-10.8)
[2022-12-25 11:58] LABS: Alanine Aminotransferase 9 U/L (0-31); Albumin Level 4.5 g/dL (3.5-5.0); Alkaline Phosphatase 50 U/L (39-117); Anion Gap 15 (12-20); Aspartate Amino Transferase 12 U/L (5-31); Bilirubin Total 0.6 mg/dL (0.0-1.0); Blood Urea Nitrogen 16 mg/dL (9-16); Calcium 9.7 mg/dL (8.4-10.2); Carbon Dioxide 25 mmol/L (22-29); Chloride 105 mmol/L (96-108); Estimated Glomerular Filt Rate > 60; Glucose Random 80 mg/dL (60-115); Potassium 4.1 mmol/L (3.3-5.1); Sodium 141 mmol/L (135-145)
== END 2022-12-25 09:13 | disposition home or self-care (01) ==
LOC: HO.HMGCLDS 09:12
PROVIDERS: PCP Internal Medicine; Visit Provider Nurse Practitioner
DX: Z01.818 Encounter for other preprocedural examination (principal)
CPT/HCPCS: 36415; 80053; 85025

== ENCOUNTER 2022-12-30 14:12 | Outpatient (AMB) | payer OTHER, SELFPAY ==
--- NOTE | 2022-12-30 14:14 | MHC.OFFVIS ---
Intake Vital Signs 12/30/22 14:15 Height 5 ft Weight 131 lb 6.328 oz BMI 25.7 BP 105/57 L Blood Pressure Location Lt brachial Position Sitting Pulse 85 Intake Visit Reasons: Follow up labs/nausea and headache Intake Note: Patient presents to in office visit today in follow up of labs. CC: Nausea, headache x2 weeks, fogginess, burping a lot, unable to pass gas. She states she was having diarrhea yesterday morning but before that she was having very hard BMs. She also has been feeling very tired. Onset of symptoms approximately 12/18/22. Cook Sauce Required: No Accompanied by: Self / Same As Patient Allergies amoxicillin Adverse Reaction (Intermediate, Verified 12/30/22 14:22) Rash TAPE,PLASTIC Allergy (Intermediate, Uncoded 11/26/22 08:09) rash/itching HPI Follow up labs/nausea and headache HPI Details Assessment & Plan (1) Tubulovillous adenoma of colon: Comment: 05/2022 scope=tVA, rov 6 mos and 1 year scope repeat aeb Code(s): D12.6 - Benign neoplasm of colon, unspecified Plan: She thinks she had COVID as she had an acute illness with URI sx and GARCIA's and she has continued nausea and diarrhea. I advise her that this will take time and I advise a light diet and lots of clear liquids. If this does not resolve in due time she is welcome back to my office for further workup and consideration. There are no other new health problems that have arisen since her last visit. She is willing to go have her labs renewed so that we have the most current results. This also may be helpful in terms of her acute illness. There are no prior problems with anesthesia or sedation. She denies any cardiac or respiratory problems. No ID problems She had a maternal uncle who of CRC and there is breast cancer in the family. (2) Pre-op examination: Code(s): Z01.818 - Encounter for other preprocedural examination Orders: Orders Colonoscopy - GI U se Only Today D12.6 - Benign barak plasm of colon, un specified Comprehensive Met. Panel Today Z01.818 - Encounte r for other prepro cedural examinatio n Complete Blood Cou nt Auto Diff Today Z01.818 - Encounte r for other prepro cedural examinatio n Medications: New peg 3350-electroly hiral 236-22.74-6.74 -5.86 gram (Golyt kevyn) until feca l effluent is cipriano r; do not exceed a total volume of 2 ,000 mL 240 mL PO Q10M 1 day 4,000 mL 0RF Z12.11 - Encounter for screening for malignant neoplas m of colon Labs: Laboratory Tests 11/27/21 12/25/22 14:37 09:17 WBC 5.9 Hgb 13.8 Hct 41.7 Plt Count 295 Estimated GFR > 60 Total Bilirubin 0.6 AST 12 ALT 9 Alkaline Phosphata se 50 C-React Prot High Sens 1.9 TSH 1.10 EGD/Colonoscopy Biopsy TODAY'S VISIT She says I just don't feel good, apparently she wakes up at night and her stomach is upset. She does not notice it as much in the day. She is burping a lot and she seems to have trouble passing. She usually has a sensitive stomach, but never to this extent. She also did stop and then restart her on jar 0 but in the past this never bothered her except to have mild nausea. She had a very hard bowel movement recently that was followed by diarrhea but no consistent diarrhea. She has a feeling of discomfort that is mostly nausea in the stomach but no actual pain. She has to prop herself up at night because laying flat makes her much more nauseated. She has in her get that the colonoscopy scheduled so I think we will add an endoscopy to see what might be going on. Were going to start her on a trial of omeprazole since she is having quite a bit of acid brash. I will also give her some Zofran to help with the nausea until we figure out what might actually be going on. Today will do an H pylori breath test. Return office visit in 4 weeks to see how she is doing. [facility] Medical History (Updated 12/30/22 @ 14:42 by GEGE Soriano) Dyslipidemia Vitamin D deficiency Polyarthralgia History of cystocele External hemorrhoids Tear of meniscus of left knee HX: benign breast biopsy Anxiety and depression Surgical History (Updated 12/30/22 @ 14:26 by TYSHAWN Casey) H/O colonoscopy Hx of LASIK H/O arthroscopy of shoulder Hx of cervical discectomy Family History Sister Breast cancer, Onset Age: 38 Mother Breast cancer Father Esophageal cancer Maternal Uncle Colon cancer Social History Housing: House Patient Tobacco Use Status: Never used Tobacco e-Cigarette/Vaping Use: Never Used service: No Current occupational status: employed Cognitive needs: No Hearing needs: No Vision needs: Yes Review of Systems Const Reports fatigue, Denies fever(s), Reports malaise, Denies night sweats, Reports poor appetite and Denies weight loss ENT Reports Normal hearing present, Denies dental pain, Denies dysphagia, Denies hearing loss, Denies mouth pain, Denies odynophagia, Denies throat swelling, Denies tongue swelling and Reports other (Dentition adequate) Card Reports no additional complaints Resp Reports no additional complaints GI Denies abdominal pain, Reports belching, Denies melena, Reports bloating, Denies hematochezia, Reports constipation, Denies GI cramping, Denies dysphagia, Denies excessive flatus, Denies early satiety, Reports dyspepsia, Reports heartburn, Reports diarrhea, Reports nausea, Denies odynophagia, Reports vomiting and Denies hematemesis Musc Reports myalgias Skin/Breast Denies pruritus, Denies lesions, Denies rash and Denies jaundice Neuro Reports Normal hearing present and Denies Abnormal speech present Endo Reports fatigue Aller/Immun Denies throat swelling and Denies tongue swelling Physical Exam Vital Signs: Last Vital Signs Pulse 85 12/30/22 14:15 BP 105/57 L 12/30/22 14:15 BMI result Body Mass Index 25.7 Const General: cooperative, no acute distress, well developed and well groomed Nutritional Appearance: average body habitus and well nourished Orientation/consciousness: oriented to person, oriented to place and oriented to time Limitations: No language barrier HEENT Head: Yes normocephalic and Yes atraumatic Eyes General: appearance normal, both eyes and all related structures Pupils: Equal, round and reactive pupils present Neck Neck: Yes normal visual inspection and Yes no lymphadenopathy Thyroid: Thyroid normal Resp Effort & Inspection: normal respiratory effort and able to speak in complete sentences Auscultation: clear to auscultation bilaterally Cardio Rate: regular rate Rhythm: regular rhythm Heart sounds: Normal, physiologic split S2 sound present Peripheral pulses: radial pulses present and posterior tibial pulses present GI Inspection: No distended and No Abdominal panniculus present Palpation (GI): Soft to palpation, nontender, no guarding, not rigid and No hepatosplenomegaly present Percussion: Yes normal to percussion Auscultation: normal bowel sounds Rectal Exam - Female: deferred Skin General skin exam: no rashes or lesions noted, turgor normal, skin not dry, no jaundice, No spider nevi and no striae Rashes: no rashes Nails: normal Neuro General: oriented to person, oriented to place and oriented to time Cranial nerves: Yes Equal, round and reactive pupils present and Yes Normal hearing present Speech: No Abnormal speech present Extrem General: Yes normal to inspection, No clubbing, No cyanosis and No edema Psych Appearance: grossly normal and well kempt Mental Status: mental status grossly normal Speech and movement: Normal speech and movement present Affect: normal affect Attitude: cooperative Thought process: Normal thought process present and not confabulating Thought content: Normal thought content present Insight: Fair insight present (Psych) Judgement: Fair judgement present (Psych) Results Reviewed Results Reviewed: Laboratory Tests 11/27/21 12/25/22 14:37 09:17 WBC 5.9 Hgb 13.8 Hct 41.7 Plt Count 295 Estimated GFR > 60 Total Bilirubin 0.6 AST 12 ALT 9 Alkaline Phosphatase 50 C-React Prot High Sens 1.9 TSH 1.10 Assessment & Plan Assessment & Plan (1) Nausea and vomiting: Code(s): R11.2 - Nausea with vomiting, unspecified Plan: EGD/Colonoscopy Biopsy TODAY'S VISIT She says I just don't feel good, apparently she wakes up at night and her stomach is upset. She does not notice it as much in the day. She is burping a lot and she seems to have trouble passing. She usually has a sensitive stomach, but never to this extent. She also did stop and then restart her on jar 0 but in the past this never bothered her except to have mild nausea. She had a very hard bowel movement recently that was followed by diarrhea but no consistent diarrhea. She has a feeling of discomfort that is mostly nausea in the stomach but no actual pain. She has to prop herself up at night because laying flat makes her much more nauseated. She has in her get that the colonoscopy scheduled so I think we will add an endoscopy to see what might be going on. Were going to start her on a trial of omeprazole since she is having quite a bit of acid brash. I will also give her some Zofran to help with the nausea until we figure out what might actually be going on. Today will do an H pylori breath test. Return office visit in 4 weeks to see how she is doing. (2) Tubulovillous adenoma of colon: Comment: 05/2022 scope=tVA, rov 6 mos and 1 year scope repeat aeb Code(s): D12.6 - Benign neoplasm of colon, unspecified Orders: Orders H Pylori Breath Test Today D12.6 - Benign neoplasm of colon, unspecified, R11.2 - Nausea with vomiting, unspecified EGD/[place] Combo - GI Use Only Today D12.6 - Benign neoplasm of colon, unspecified, R11.2 - Nausea with vomiting, unspecified Medications: New omeprazole 40 mg PO DAILY 30 days 30 caps 3RF ondansetron HCl 4 mg PO BID-TID 14 days PRN 60 tabs 3RF nausea and vomiting R11.2 - Nausea with vomiting, unspecified Coding Level of Care Code Est Pt Level 4 (78795) Diagnoses Nausea and vomiting R11.2 Tubulovillous adenoma of colon D12.6
[2022-12-30 14:15] VITALS: BP 105/57; PULSE 85; BMI 25.7
== END 2022-12-30 15:46 | disposition home or self-care (01) ==
PROVIDERS: PCP Internal Medicine; Visit Provider Nurse Practitioner
DX: R11.2 Nausea with vomiting, unspecified (principal); D12.6 Benign neoplasm of colon, unspecified
CPT/HCPCS: 99214

== ENCOUNTER 2022-12-30 14:12 | Outpatient (REF) | payer OTHER, SELFPAY | END 2022-12-30 14:13 | disposition home or self-care (01) | LOC: HO.LNP 14:12 | PROVIDERS: PCP Internal Medicine; Visit Provider Nurse Practitioner | DX: Z13.89 Encounter for screening for other disorder (principal) | CPT/HCPCS: 83013 ==

== ENCOUNTER 2023-01-21 09:03 | Outpatient (REF) | payer OTHER, SELFPAY ==
[2023-01-23 13:21] LABS: H Pylori Breath Test Negative (Negative)
== END 2023-01-21 09:04 | disposition home or self-care (01) ==
LOC: HO.LNP 09:03
PROVIDERS: PCP Internal Medicine; Visit Provider Nurse Practitioner
DX: D12.6 Benign neoplasm of colon, unspecified (principal); R11.2 Nausea with vomiting, unspecified
CPT/HCPCS: 83013; 99211

== ENCOUNTER 2023-01-28 08:59 | Outpatient (AMB) | payer OTHER, SELFPAY ==
--- NOTE | 2023-01-28 09:10 | A.OFFVIS_ITS ---
Intake Vital Signs 01/28/23 09:27 Height 5 ft Weight 132 lb 11.492 oz BMI 25.9 BP 94/59 L Blood Pressure Location Rt brachial Position Sitting Pulse 84 Intake Visit Reasons: 4 week follow up Intake Note: Patient presents to in office visit today in 4 weeks follow up. CC: Patient reports she has been doing better and medications are helping. She reports constipation but states she needs to remember to take her fiber. 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 She does not notice it as much in the day. She is burping a lot and she seems to have trouble passing. She usually has a sensitive stomach, but never to this extent. She also did stop and then restart her on jar 0 but in the past this never bothered her except to have mild nausea. She had a very hard bowel movement recently that was followed by diarrhea but no consistent diarrhea. She has a feeling of discomfort that is mostly nausea in the stomach but no actual pain. She has to prop herself up at night because laying flat makes her much more nauseated. She has in her get that the colonoscopy scheduled so I think we will add an endoscopy to see what might be going on. Were going to start her on a trial of omeprazole since she is having quite a bit of acid brash. I will also give her some Zofran to help with the nausea until we figure out what might actually be going on. Today will do an H pylori breath test. Return office visit in 4 weeks to see how she is doing. (2) Tubulovillous adenoma of colon: Comment: 05/2022 scope=tVA, rov 6 mos and 1 year scope repeat aeb Code(s): D12.6 - Benign neoplasm of colon, unspecified Orders: Orders H Pylori Breath Te st Today D12.6 - Benign barak plasm of colon, un specified, R11.2 - Nausea with vomit ing, unspecified EGD/[place] Combo - G I Use Only Today D12.6 - Benign barak plasm of colon, un specified, R11.2 - Nausea with vomit ing, unspecified Medications: New omeprazole 40 mg PO DAILY 30 days 30 caps 3RF ondansetron HCl 4 mg PO BID-TID 1 4 days PRN 60 tabs 3RF nausea and vo miting R11.2 - Nausea wit h vomiting, unspec ified . LABS; Laboratory Tests 01/21/23 Unknown H. pylori Breath T est Negative CORRESPONDENCE On 01/05/23 @ 13:41 Evaristo Quick Wrote To [facility] called this morning, stating that was incorrect on test bags, and they cancelled the ordered. PT needs to re do the test. I called PT to scheduled H pylori breath test in 2 weeks as she was taking Omeprazole. Pt also stated that Omeprazole was not working well for her symptoms. On 12/29/22 @ 15:20 Evaristo Quick Wrote To [facility] added for tomorrow at 2:15. On 12/29/22 @ 14:14 BentleyKathy Wrote To Evaristo Quick get her in to see me On 12/28/22 @ 13:34 Evaristo Quick Wrote To [facility] Patient called asking for lab results. She does not have a f/u appt scheduled as she is waiting to be scheduled for procedure but she states she is feeling nauseous and with headaches. Please advise. EGD/Colonoscopy Scheduled for 06/14 Biopsy TODAY'S VISIT She is feeling generally better with the o2o, but does have to watch what she eats. Her N/V has decreased quite a bit. The EGD/colonoscopy is upcoming in May. The HP was negative, so this is not a cause. She is very fatigued and has joint aches. She seems to sleep well, but wants day time naps. Has a hx of vit D def. Will do lyme, TSH, b vit and vit D test for her. I am doing these tests to try to point in the right direction but leave further testing or treatment referrals to her primary care provider. At this point she will keep her appointment June 28 after her endoscopy and contact me sooner if she has any further complaints. [facility] Medical History Dyslipidemia Vitamin D deficiency Polyarthralgia History of cystocele External hemorrhoids Tear of meniscus of left knee HX: benign breast biopsy Anxiety and depression Surgical History H/O colonoscopy Hx of LASIK H/O arthroscopy of shoulder Hx of cervical discectomy Family History Sister Breast cancer, Onset Age: 38 Mother Breast cancer Father Esophageal cancer Maternal Uncle Colon cancer Social History Housing: House Patient Tobacco Use Status: Never used Tobacco e-Cigarette/Vaping Use: Never Used service: No Current occupational status: employed Cognitive needs: No Hearing needs: No Vision needs: Yes Review of Systems Const Reports fatigue, Denies fever(s), Denies night sweats, Denies poor appetite and Denies weight loss Eyes Details: glasses Reports requires corrective lenses ENT Reports Normal hearing present, Denies dental pain, Denies dysphagia, Denies hearing loss, Denies mouth pain, Denies odynophagia, Denies throat swelling, Denies tongue swelling and Reports other (Dentition adequate) Card Reports no additional complaints Resp Reports no additional complaints GI Denies abdominal pain, Denies melena, Denies bloating, Denies hematochezia, Denies constipation, Denies GI cramping, Denies dysphagia, Denies excessive flatus, Denies early satiety, Reports heartburn, Denies diarrhea, Reports nausea, Denies odynophagia, Denies vomiting and Denies hematemesis Skin/Breast Denies pruritus, Denies lesions, Denies rash and Denies jaundice Neuro Reports Normal hearing present and Denies Abnormal speech present Endo Reports fatigue Aller/Immun Denies throat swelling and Denies tongue swelling Physical Exam Vital Signs: Last Vital Signs Pulse 84 01/28/23 09:27 BP 94/59 L 01/28/23 09:27 BMI result Body Mass Index 25.9 Const General: cooperative, no acute distress, well developed and well groomed Nutritional Appearance: average body habitus and well nourished Orientation/consciousness: oriented to person, oriented to place and oriented to time Limitations: No language barrier HEENT Head: Yes normocephalic and Yes atraumatic Eyes General: appearance normal, both eyes and all related structures Pupils: Equal, round and reactive pupils present Neck Neck: Yes normal visual inspection and Yes no lymphadenopathy Thyroid: Thyroid normal Resp Effort & Inspection: normal respiratory effort and able to speak in complete sentences Auscultation: clear to auscultation bilaterally Cardio Rate: regular rate Rhythm: regular rhythm Heart sounds: Normal, physiologic split S2 sound present Peripheral pulses: radial pulses present and posterior tibial pulses present GI Inspection: No distended and No Abdominal panniculus present Palpation (GI): Soft to palpation, nontender, no guarding, not rigid and No hepatosplenomegaly present Percussion: Yes normal to percussion Auscultation: normal bowel sounds Rectal Exam - Female: deferred Skin General skin exam: no rashes or lesions noted, turgor normal, skin not dry, no jaundice, No spider nevi and no striae Rashes: no rashes Nails: normal Neuro General: oriented to person, oriented to place and oriented to time Cranial nerves: Yes Equal, round and reactive pupils present and Yes Normal hearing present Speech: No Abnormal speech present Extrem General: Yes normal to inspection, No clubbing, No cyanosis and No edema Psych Appearance: grossly normal and well kempt Mental Status: mental status grossly normal Speech and movement: Normal speech and movement present Affect: normal affect Attitude: cooperative Thought process: Normal thought process present and not confabulating Thought content: Normal thought content present Insight: Limited insight present (Psych) Judgement: Limited judgement present (Psych) Assessment & Plan Assessment & Plan (1) Nausea and vomiting: Code(s): R11.2 - Nausea with vomiting, unspecified Plan: EGD/Colonoscopy Scheduled for 06/14 Biopsy TODAY'S VISIT She is feeling generally better with the o2o, but does have to watch what she eats. Her N/V has decreased quite a bit. The EGD/colonoscopy is upcoming in May. The HP was negative, so this is not a cause. She is very fatigued and has joint aches. She seems to sleep well, but wants day time naps. Has a hx of vit D def. Will do lyme, TSH, b vit and vit D test for her. I am doing these tests to try to point in the right direction but leave further testing or treatment referrals to her primary care provider. At this point she will keep her appointment June 28 after her endoscopy and contact me sooner if she has any further complaints.. (2) Tubulovillous adenoma of colon: Comment: 05/2022 scope=tVA, rov 6 mos and 1 year scope repeat aeb Code(s): D12.6 - Benign neoplasm of colon, unspecified (3) Fatigue: Code(s): R53.83 - Other fatigue (4) Polyarthralgia: Code(s): M25.50 - Pain in unspecified joint Orders: Orders TSH reflex Free T4 Today M25.50 - Pain in unspecified joint, R11.2 - Nausea with vomiting, unspecified, R53.83 - Other fatigue Vitamin D 25-OH (D2 and D3) Today M25.50 - Pain in unspecified joint, R11.2 - Nausea with vomiting, unspecified, R53.83 - Other fatigue Vitamin B12 and Folate Today M25.50 - Pain in unspecified joint, R11.2 - Nausea with vomiting, unspecified, R53.83 - Other fatigue Lyme IgG/IgM w/reflex to WB Today M25.50 - Pain in unspecified joint, R11.2 - Nausea with vomiting, unspecified, R53.83 - Other fatigue Coding Level of Care Code Est Pt Level 3 (28227) Diagnoses Nausea and vomiting R11.2 Tubulovillous adenoma of colon D12.6 Fatigue R53.83 Polyarthralgia M25.50
[2023-01-28 09:27] VITALS: BP 94/59; PULSE 84; BMI 25.9
== END 2023-01-28 09:53 | disposition home or self-care (01) ==
PROVIDERS: PCP Internal Medicine; Visit Provider Nurse Practitioner
DX: R11.2 Nausea with vomiting, unspecified (principal); D12.6 Benign neoplasm of colon, unspecified; R53.83 Other fatigue; M25.50 Pain in unspecified joint
CPT/HCPCS: 99213

== ENCOUNTER → 2023-01-28 08:59 | Outpatient (BNVA) | payer OTHER, SELFPAY | PROVIDERS: PCP Internal Medicine; Visit Provider Nurse Practitioner ==

== ENCOUNTER 2023-03-04 11:59 | Outpatient (REF) | payer OTHER, SELFPAY ==
[2023-03-04 14:08] LABS: TSH reflex Free T4 1.08 uIU/mL (0.32-4.0)
[2023-03-04 14:13] LABS: Folate 7.9 ng/mL (> or = 4.0); Vitamin B12 594 pg/mL (200-900)
[2023-03-05 03:53] LABS: ~Hepatitis B Surface Antibody REACTIVE (Nonreactive)
[2023-03-08 17:14] LABS: Lyme Abs Screen <0.90 index
[2023-03-10 12:49] LABS: Vitamin D 25-OH, D2 <4 ng/mL; Vitamin D 25-OH, D3 29 ng/mL; Vitamin D 25-OH, Total 29 ng/mL (30-100)
== END 2023-03-04 12:00 | disposition home or self-care (01) ==
LOC: HO.HMGCLDS 11:59
PROVIDERS: Absent Provider Nurse Practitioner; PCP Internal Medicine; Visit Provider Internal Medicine
DX: R53.83 Other fatigue (principal); R11.2 Nausea with vomiting, unspecified; M25.50 Pain in unspecified joint; Z78.9 Other specified health status
CPT/HCPCS: 36415; 82306; 82607; 82746; 84443; 86617; 86618; 86706

== ENCOUNTER 2023-06-15 07:27 | Day surgery (SDC) | payer OTHER, SELFPAY ==
[2023-06-11 14:29] VITALS: BMI 26.0
--- NOTE | 2023-06-14 13:18 | P.CONAN_ITS ---
Documented by User: Jennifer Lamb NP 06/14/23 13:20 HPI - Anesthesia Eval Consult details Narrative: 53yo F for Upper Endoscopy and Colonoscopy Anesthesia Pre-Procedure Meds Is the patient on any of the following meds?: Any other SGL-1 drugs or drugs that delay gastric emptying (Tirzepatide LD months ago) PMFSH Active Problems Active Problems: All Active Problems (Updated 01/28/23 @ 09:45 by GEGE Soriano) Fatigue (Acute) Nausea and vomiting (Acute) Dyslipidemia (Acute) Vitamin D deficiency (Acute) Tubulovillous adenoma of colon (Acute) Pre-op examination (Acute) Polyarthralgia (Acute) External hemorrhoids (Acute) Anxiety and depression (Acute) Laceration of left middle finger (Acute) Past Medical History Medical History Dyslipidemia Vitamin D deficiency Polyarthralgia History of cystocele External hemorrhoids Tear of meniscus of left knee HX: benign breast biopsy Anxiety and depression Family History Family History Sister Breast cancer, Onset Age: 38 Mother Breast cancer Father Esophageal cancer Maternal Uncle Colon cancer Family history of problems with anesthesia: No Surgical History Surgical History H/O colonoscopy Hx of LASIK H/O arthroscopy of shoulder Hx of cervical discectomy History of Problems with Anesthesia: No Social History Social History Housing: House Patient Tobacco Use Status: Never used Tobacco e-Cigarette/Vaping Use: Never Used Use of substances other than those prescribed or required for medical reasons: Yes Substance Use Type Other:: edibles rarely Are you DNR?: No Advance Directives: No Advance Directives Information Provided: Yes service: No Current occupational status: employed Cognitive needs: No Hearing needs: No Vision needs: Yes Meds Allergies Allergy/AdvReac Type Severity Reaction Status Date / Time amoxicillin AdvReac Intermediate Rash Verified 06/15/23 08:00 TAPE,PLASTIC Allergy Intermediate rash/itchin Uncoded 06/15/23 08:00 g Home Medications Medication Instructions Recorded Confirmed Last Taken Type levonorgestrel 20.4 mcg/24 hrs (8 1 device intrauterine ONCE 11/25/21 06/15/23 Unknown History yrs) 52 mg intrauterine device (Liletta) celecoxib 200 mg capsule (Celebrex) 200 mg PO DAILY PRN Joint pain 11/26/22 06/15/23 Unknown History tirzepatide 2.5 mg/0.5 mL 2.5 mg subcut QWEEK 12/30/22 06/15/23 Unknown History subcutaneous pen injector Exam Height,Weight and Vital Signs: Height 5 ft Weight 60.328 kg Assessment and Plan Assessment Anesthesia Assessment: Chart Reviewed Final Anesthetic Review Family History of Problems with Anesthesia: No History of Problems with Anesthesia: No Documented by User: Paola Valverde MD 06/15/23 08:37 HPI - Anesthesia Eval Anesthesia Pre-Procedure Meds If Yes to any meds - educate patient: Pt education - increased risk of a spiration PMFSH Past Medical History Medical History Dyslipidemia Vitamin D deficiency Polyarthralgia History of cystocele External hemorrhoids Tear of meniscus of left knee HX: benign breast biopsy Anxiety and depression Family History Family History Sister Breast cancer, Onset Age: 38 Mother Breast cancer Father Esophageal cancer Maternal Uncle Colon cancer Surgical History Surgical History H/O colonoscopy Hx of LASIK H/O arthroscopy of shoulder Hx of cervical discectomy Social History Social History Housing: House Patient Tobacco Use Status: Never used Tobacco e-Cigarette/Vaping Use: Never Used Use of substances other than those prescribed or required for medical reasons: Yes Substance Use Type Other:: edibles rarely Are you DNR?: No Advance Directives: No Advance Directives Information Provided: Yes service: No Current occupational status: employed Cognitive needs: No Hearing needs: No Vision needs: Yes Meds Allergies Allergy/AdvReac Type Severity Reaction Status Date / Time amoxicillin AdvReac Intermediate Rash Verified 06/15/23 08:00 TAPE,PLASTIC Allergy Intermediate rash/itchin Uncoded 06/15/23 08:00 g Home Medications Medication Instructions Recorded Confirmed Last Taken Type levonorgestrel 20.4 mcg/24 hrs (8 1 device intrauterine ONCE 11/25/21 06/15/23 Unknown History yrs) 52 mg intrauterine device (Liletta) celecoxib 200 mg capsule (Celebrex) 200 mg PO DAILY PRN Joint pain 11/26/22 06/15/23 Unknown History tirzepatide 2.5 mg/0.5 mL 2.5 mg subcut QWEEK 12/30/22 06/15/23 Unknown History subcutaneous pen injector Exam Airway Mallampati Class: I TM Dist: >3cm Neck ROM: Full Assessment and Plan Assessment Anesthesia Assessment: Anesthesia Plan Discussed Final Anesthetic Review NPO: Yes ASA Class: II Final Preanesthetic Review: No Changes in Pt Med Stat, Meds/Allgs Chart Reviewed, Consent Obtained/Reviewed and Anes Risks/Benef Reviewed Patient Risk: Low Procedure Risk: Low Anesthetic Plan Anesthetic Plan: TIVA Disposition: Standard PACU
[2023-06-15 08:07] VITALS: BMI 24.4
--- NOTE | 2023-06-15 08:09 | MHC.SHP ---
Pre-Procedural Eval Section A - 24 Hr Update-Section A only Date of Service: 06/15/23 Section B - Complete if H&P > 30 days Chief Complaint: Benign neoplasm of colon,nausea with vomiting Details of Present Illness: unlce with CRC, dad with esophgeal cancer, mother with polyps of colon Relevant Family History (Specify if Yes): Yes Relevant Social History: None Present Medications: see Short Stay Collaborative assessment Medical History: Significant History (Dyslipidemia Vitamin D deficiency Polyarthralgia History of cystocele External hemorrhoids Tear of meniscus of left knee HX: benign breast biopsy Anxiety and depression) History of Previous Operations: Relevant previous surgery/procedure and date(s) ( H/O colonoscopy Hx of LASIK H/O arthroscopy of shoulder Hx of cervical discectomy) Allergies: Allergies Allergy/AdvReac Type Severity Reaction Status Date / Time amoxicillin AdvReac Intermediate Rash Verified 06/15/23 08:00 TAPE,PLASTIC Allergy Intermediate rash/itchin Uncoded 06/15/23 08:00 g Review of Systems Sugical H&P ROS: Negative: Constitution, Cardiovascular, Respiratory, Neurological, Psychiatric, Hem-Onc, Allergic/Immunologic, Gastrointestinal, Genitourinary, Musculoskeletal, Integumentary, Endocrine and Eyes/Ears/Nose/Throat Exam Surgical H&P Exam: Normal: HEENT, Normal: Heart, Normal: Lungs, Normal: Extremities, Normal: Abdomen, Normal: Skin and Normal: Neurological Plan Diagnosis/Plan: Unchanged I have reviewed the history and physical and performed a pertinent physical examination on my patient. No changes have occurred unless specified. Time Spent With Patient Time: Total time managing care of this patient today ____ minutes.
[2023-06-15 08:17] VITALS: BP 129/82; PULSE 72; RESP 16; TEMP 36.6; O2SAT 100
[2023-06-15 08:26] LABS: UPreg QC Valid YES; Urine Pregnancy NEGATIVE (NEGATIVE)
--- NOTE | 2023-06-15 08:28 | W.PM.OPN ---
Operative Note Operative Note Date of Service: 06/15/23 Narrative: Operative Information Procedure Description: EGD, Colonoscopy Indication: nausea, hx of colon polyp Anesthesia: MAC FLEXIBLE TRANSORAL UPPER GASTROINTESTINAL ENDOSCOPY AND COLONOSCOPY PROCEDURE NOTE UPPER ENDOSCOPY Consent: Indications for the procedure and potential complications of bleeding, perforation, reaction to medications and missed diagnosis were discussed with the patient and informed consent was obtained. Instrument: Olympus GIF H 190 J mid size upper endoscope Monitoring: Vital signs and clinical assessment, continuous EKG monitoring, Pulse oximetry, Carbon Dioxide monitoring and blood pressure monitoring were done throughout the procedure. Procedure: The patient was placed in the left lateral decubitis position and pre-procedure medications were administered and a bite block was placed. The endoscope was inserted into the mouth and advanced under direct vision to the third part of duodenum. A careful inspection was made as the upper endoscope was withdrawn including a retroflexed examination of the proximal stomach; Findings and interventions are described below. Findings: Larynx:normal Esophagus: GE junction at 33 cm, diaphragm hiatus at 36 cm, consistent with 3 cm sliding hiatal hernia, mild esophagitis at GEJ, bx taken from here and distal esophagus Stomach: streaky erythema in antrum. Biopsies were obtained. Grade 2 flap valve on retroflexed examination of the cardia. Duodenum: bulbar duodenitis - bx taken Intervention: Biopsies as noted above, COLONOSCOPY Instrument: Olympus variable stiffness pediatric scope 190L Colonoscopy Monitoring: Vital signs and clinical assessment, continuous EKG monitoring, Pulse oximetry, Carbon Dioxide monitoring and blood pressure monitoring were done throughout the procedure. Colon withdrawal time was 11 minutes. Procedure: The patient was placed in the left lateral decubitis position and pre-procedure medications were administered. After a digital rectal examination of the ano-rectum, the video colonoscope was inserted into the rectum and advanced through the colon to the cecum/TI. The colonoscope was slowly withdrawn in a retrograde panoramic fashion and the colon mucosa was carefully examined including a retroflexed view of the rectum. Findings and interventions are described below. Procedure Difficulty:moderate Findings: Terminal Ileum-not intubated Cecum:normal Right sided retroflexion: few diverticulae seen Ascending Colon: scattered diverticulosis Transverse Colon -normal Descending Colon:normal Sigmoid Colon: moderate diverticulosis Rectum: Retroflexion with small internal hemorrhoids, grade I, 4-5 mm sessile polyp removed with cold forceps Anorectum - normal Colon preparation: [place] Bowel Preparation Scale Right colon; 2 Transverse colon: 2 Left colon; 2 (0 = Unprepared colon segment with mucosa not seen due to solid stool that cannot be cleared. 1 = Portion of mucosa of the colon segment seen, but other areas of the colon segment not well seen due to staining, residual stool and/or opaque liquid. 2 = Minor amount of residual staining, small fragments of stool and/or opaque liquid, but mucosa of colon segment seen well. 3 = Entire mucosa of colon segment seen well with no residual staining, small fragments of stool or opaque liquid) Impression and Post Procedure Diagnosis: Endoscopy Findings: gastritis esophagitis small sliding hiatal hernia duodenitis Colonoscopy Findings: diverticulosis colon polyp internal hemorrhoids Plan: Await Pathology results Repeat Colonoscopy in 5 years due to prior hx of tubulovillous polyp or earlier if clinically indicated High fiber diet leaflet avoid straining at stool, epsom salts and sitz bath, anusol supps or cream GERD precautions Above findings were reviewed with the patient and relevant handouts were provided if indicated.
[2023-06-15] MEDS: Lactated Ringers 1,000 ML 100 ML IVCONT (08:33)
[2023-06-15 09:16] VITALS: BP 107/68; PULSE 68; RESP 12; TEMP 36.2; O2SAT 100
[2023-06-15 09:30] VITALS: BP 123/58; PULSE 69; RESP 16; TEMP 36.2; O2SAT 100
== END 2023-06-15 09:38 | disposition home or self-care (01) ==
PROVIDERS: Anesthesiology; PCP Internal Medicine; Visit Provider Internal Medicine Gastroenterology
PROC: (CPT 43239; principal; 2023-06-15 08:50)
DX: K29.60 Other gastritis without bleeding (principal); K20.90 Esophagitis, unspecified without bleeding; K29.80 Duodenitis without bleeding; K44.9 Diaphragmatic hernia without obstruction or gangrene; Z12.11 Encounter for screening for malignant neoplasm of colon; K62.1 Rectal polyp; K57.30 Diverticulosis of large intestine without perforation or abscess without bleeding; K64.0 First degree hemorrhoids; Z86.010 Personal history of colon polyps; E78.5 Hyperlipidemia, unspecified
CPT/HCPCS: 43239; 45380; 81025; 88305; 88312; 88313; 88342; J2704

== ENCOUNTER → 2023-06-15 07:27 | Outpatient (BNV) | payer OTHER, SELFPAY | PROVIDERS: PCP Internal Medicine; Visit Provider Internal Medicine Gastroenterology | DX: Z12.11 Encounter for screening for malignant neoplasm of colon (principal); Z86.010 Personal history of colon polyps; K62.1 Rectal polyp; K57.90 Diverticulosis of intestine, part unspecified, without perforation or abscess without bleeding; K29.70 Gastritis, unspecified, without bleeding; K29.80 Duodenitis without bleeding; K20.90 Esophagitis, unspecified without bleeding | CPT/HCPCS: 43239; 45380 ==

== ENCOUNTER 2023-06-29 07:57 | Outpatient (AMB) | payer OTHER, SELFPAY ==
--- NOTE | 2023-06-29 07:59 | A.OFFVIS_ITS ---
Vital Signs 06/29/23 08:00 Height 5 ft Weight 135 lb BMI 26.4 BP 111/65 Blood Pressure Location Lt brachial Position Sitting Pulse 93 Intake Visit Reasons: s/p egd/colon Intake Note: Patient follow up for EGD/Colonoscopy results Patient cc: acid reflex on and off, denies any other GI issues. 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 Biopsies were obtained. Grade 2 flap valve on retroflexed examination of the cardia. Duodenum: bulbar duodenitis - bx taken Findings: Terminal Ileum-not intubated Cecum:normal Right sided retroflexion: few diverticulae seen Ascending Colon: scattered diverticulosis Transverse Colon -normal Descending Colon:normal Sigmoid Colon: moderate diverticulosis Rectum: Retroflexion with small internal hemorrhoids, grade I, 4-5 mm sessile polyp removed with cold forceps Anorectum - normal Impression and Post Procedure Diagnosis: Endoscopy Findings: gastritis esophagitis small sliding hiatal hernia duodenitis Colonoscopy Findings: diverticulosis colon polyp internal hemorrhoids Plan: Await Pathology results Repeat Colonoscopy in 5 years due to prior hx of tubulovillous polyp or earlier if clinically indicated High fiber diet leaflet avoid straining at stool, epsom salts and sitz bath, anusol supps or cream GERD precautions BIOPSY Received: 06/15/23 Diagnosis A. Duodenum, biopsy: Chronic inactive duodenitis. B. Stomach, biopsy: Oxyntic mucosa with mild chronic inactive inflammation; no Helicobacter organisms seen. C. GE junction, biopsy: - Cardiac-type mucosa (focal) with mild chronic inactive inflammation; no intestinal metaplasia seen. - Active esophagitis (neutrophils); no atypia or fungi seen. D. Esophagus, distal, biopsy: Squamous epithelium within normal limits; no inflammation seen. E. Rectum, polypectomy: Hyperplastic mucosal polyp TODAY'S VISIT She is feeling generally better with the o2o, but does have to watch what she eats. Her N/V has decreased quite a bit. The EGD/colonoscopy is upcoming in May. The HP was negative, so this is not a cause. She is very fatigued and has joint aches. She seems to sleep well, but wants day time naps. Has a hx of vit D def. Will do lyme, TSH, b vit and vit D test for her. I am doing these tests to try to point in the right direction but leave further testing or treatment referrals to her primary care provider. At this point she will keep her appointment June 28 after her endoscopy and contact me sooner if she has any further complaints.. (2) Tubulovillous adenoma of colon: Comment: 05/2022 scope=tVA, rov 6 mos and 1 year scope repeat aeb Code(s): D12.6 - Benign neoplasm of colon, unspecified (3) Fatigue: Code(s): R53.83 - Other fatigue (4) Polyarthralgia: Code(s): M25.50 - Pain in unspecified joint Orders: Orders TSH reflex Free T4 Today M25.50 - Pain in unspecified joint, R11.2 - Nausea with vomiting, unspecified, R53.83 - Other fatigue Vitamin D 25-OH (D2 and D3) Today M25.50 - Pain in unspecified joint, R11.2 - Nausea with vomiting, unspecified, R53.83 - Other fatigue Vitamin B12 and Folate Today M25.50 - Pain in unspecified joint, R11.2 - Nausea with vomiting, unspecified, R53.83 - Other fatigue Lyme IgG/IgM w/reflex to WB Today M25.50 - Pain in unspecified joint, R11.2 - Nausea with vomiting, unspecified, R53.83 - Other fatigue LABS: Laboratory Tests 03/04/23 12:04 Vitamin B12 594 25-OH Vitamin D Total 29 L 25-Hydroxy Vitamin D2 <4 25-Hydroxy Vitamin D3 29 Folate 7.9 TSH 1.08 Lyme Screen IgG & IgM <0.90 Hep Bs Antibody REACTIVE TODAY'S VISIT She is agreeable to a 5 year follow-up. The procedure was well tolerated. The results were explained and the patient is agreeable to the follow-up interval as stated. The bowel pattern has returned to normal. Education was provided to tell any 1st degree relatives about their findings to be sure that they are screened by age 45. Educated that they will be put on a recall list when it is time for their repeat scope but should they move out of state or away from the hospital they will need to remember along with their primary to repeat the procedure in a timely fashion to avoid any adverse complications. She continues to do well on her omeprazole and this is controlling her nausea and her heartburn. She continues to try to explore why she has body wide joint aches. She is happy to discovered that there is no severe pathology discovered on her upper endoscopy. Rov 6 mos. PFSH Medical History Dyslipidemia Vitamin D deficiency Polyarthralgia History of cystocele External hemorrhoids Tear of meniscus of left knee HX: benign breast biopsy Anxiety and depression Surgical History H/O colonoscopy Hx of LASIK H/O arthroscopy of shoulder Hx of cervical discectomy Family History Sister Breast cancer, Onset Age: 38 Mother Breast cancer Father Esophageal cancer Maternal Uncle Colon cancer Social History Housing: House Patient Tobacco Use Status: Never used Tobacco e-Cigarette/Vaping Use: Never Used service: No Current occupational status: employed Cognitive needs: No Hearing needs: No Vision needs: Yes Review of Systems Const Denies fatigue, Denies fever(s), Denies night sweats, Denies poor appetite and Denies weight loss ENT Reports Normal hearing present, Denies dental pain, Denies dysphagia, Denies hearing loss, Denies mouth pain, Denies odynophagia, Denies throat swelling, Denies tongue swelling and Reports other (Dentition adequate) Card Reports no additional complaints Resp Reports no additional complaints GI Details: Denies abdominal pain, Denies melena, Denies bloating, Denies hematochezia, Denies constipation, Denies GI cramping, Denies dysphagia, Denies excessive flatus, Denies early satiety, Reports heartburn, Denies diarrhea, Reports nausea, Denies odynophagia, Denies vomiting and Denies hematemesis Skin/Breast Denies pruritus, Denies lesions, Denies rash and Denies jaundice Neuro Reports Normal hearing present and Denies Abnormal speech present Endo Denies fatigue Aller/Immun Denies throat swelling and Denies tongue swelling Physical Exam Vital Signs: Last Vital Signs Pulse 93 06/29/23 08:00 BP 111/65 06/29/23 08:00 BMI result Body Mass Index 26.4 Const General: cooperative, no acute distress, well developed and well groomed Nutritional Appearance: average body habitus and well nourished Orientation/consciousness: oriented to person, oriented to place and oriented to time Limitations: No language barrier HEENT Head: Yes normocephalic and Yes atraumatic Eyes General: appearance normal, both eyes and all related structures Pupils: Equal, round and reactive pupils present Neck Neck: Yes normal visual inspection and Yes no lymphadenopathy Thyroid: Thyroid normal Resp Effort & Inspection: normal respiratory effort and able to speak in complete sentences Auscultation: clear to auscultation bilaterally Cardio Rate: regular rate Rhythm: regular rhythm Heart sounds: Normal, physiologic split S2 sound present Peripheral pulses: radial pulses present and posterior tibial pulses present GI Inspection: No distended and No Abdominal panniculus present Palpation (GI): Soft to palpation, nontender, no guarding, not rigid and No hepatosplenomegaly present Percussion: Yes normal to percussion Auscultation: normal bowel sounds Rectal Exam - Female: deferred Skin General skin exam: no rashes or lesions noted, turgor normal, skin not dry, no jaundice, No spider nevi and no striae Rashes: no rashes Nails: normal Neuro General: oriented to person, oriented to place and oriented to time Cranial nerves: Yes Equal, round and reactive pupils present and Yes Normal hearing present Speech: No Abnormal speech present Extrem General: Yes normal to inspection, No clubbing, No cyanosis and No edema Psych Appearance: grossly normal and well kempt Mental Status: mental status grossly normal Speech and movement: Normal speech and movement present Affect: normal affect Attitude: cooperative Thought process: Normal thought process present and not confabulating Thought content: Normal thought content present Insight: Fair insight present (Psych) Judgement: Fair judgement present (Psych) Assessment & Plan Assessment & Plan (1) Nausea and vomiting: Code(s): R11.2 - Nausea with vomiting, unspecified Category: Medical (2) Vitamin D deficiency: Code(s): E55.9 - Vitamin D deficiency, unspecified Category: Medical (3) Fatigue: Code(s): R53.83 - Other fatigue Category: Medical (4) Tubulovillous adenoma of colon: Comment: 05/2023= hyperplastic polyps only repeat in 5 years; 05/2022 scope=tVA, rov 6 mos and 1 year scope repeat aeb Code(s): D12.6 - Benign neoplasm of colon, unspecified Category: Medical Plan She is agreeable to a 5 year follow-up. The procedure was well tolerated. The results were explained and the patient is agreeable to the follow-up interval as stated. The bowel pattern has returned to normal. Education was provided to tell any 1st degree relatives about their findings to be sure that they are screened by age 45. Educated that they will be put on a recall list when it is time for their repeat scope but should they move out of state or away from the hospital they will need to remember along with their primary to repeat the procedure in a timely fashion to avoid any adverse complications. She continues to do well on her omeprazole and this is controlling her nausea and her heartburn. She continues to try to explore why she has body wide joint aches. She is happy to discovered that there is no severe pathology discovered on her upper endoscopy. Rov 6 mos. Medications: Refilled omeprazole 40 mg PO DAILY 90 caps 1RF
[2023-06-29 08:00] VITALS: BP 111/65; PULSE 93; BMI 26.4
== END 2023-06-29 08:48 | disposition home or self-care (01) ==
PROVIDERS: PCP Internal Medicine; Visit Provider Nurse Practitioner
DX: R11.2 Nausea with vomiting, unspecified (principal); E55.9 Vitamin D deficiency, unspecified; R53.83 Other fatigue; D12.6 Benign neoplasm of colon, unspecified
CPT/HCPCS: 99213

== ENCOUNTER → 2023-06-29 07:57 | Outpatient (BNVA) | payer OTHER, SELFPAY | PROVIDERS: PCP Internal Medicine; Visit Provider Nurse Practitioner ==

== ENCOUNTER 2023-12-08 08:00 | Outpatient (AMB) | payer OTHER, SELFPAY ==
[2023-12-08 08:11] VITALS: BP 116/70; PULSE 76; O2SAT 96; BMI 27.3
--- NOTE | 2023-12-08 08:11 | A.OFFPC_ITS ---
Vital Signs 12/08/23 08:11 Height 5 ft Weight 140 lb BMI 27.3 BP 116/70 Blood Pressure Location Lt brachial Position Sitting Pulse 76 Pulse Source Pulse Oximeter Pulse Oximetry (%) 96 Oxygen Delivery Method Room Air Intake Visit Reasons: PE Intake Note: Pt is here today for PE. Pt had mammo in of this year. Pt has [facility] and her last pap was in May. Allergies amoxicillin Adverse Reaction (Intermediate, Verified 12/08/23 08:21) Rash TAPE,PLASTIC Allergy (Intermediate, Uncoded 12/08/23 08:21) rash/itching Medication List - Last Reconciled 12/08/23 by Emily Desai MD celecoxib (Celebrex) 200 mg PO DAILY PRN loratadine (Claritin) 10 mg PO DAILY omeprazole 40 mg PO DAILY ondansetron HCl 4 mg PO BID-TID PRN 14 days sertraline (Zoloft) 50 mg PO DAILY triamcinolone acetonide 0.025% 1 appl topical BID 10 days Tobacco use date assessed: 12/08/23 Dental Screening Dental Screen Date: 12/08/23 Did you have a dental visit in the last 12 months?: Yes Did you have a dental problem in the last 6 months where you did not have access to dental care?: No Was dental information given to patient?: Patient has dentist HPI PE HPI Details 52-year-old lady presents today for a ph ysical exam. She is up-to-date with her screening mammogram and screening colonoscopy., with tubulovillous adenoma removed , and a repeat colonoscopy is to be scheduled in a year. Has an appointment to see Kathy Hagan next month for follow-up. She sees Dr. Lopez for her routine Pap and pelvic exam , still with an IUD in place. She takes sertraline for anxiety and depression , feels well on current dose but has been having more frequent anxiety attacks and mood swings. 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 History of torn meniscus in left knee, currently being seen by Dr. Bennett who has done cortisone injections in her knee. Complains of pain in her right lower back, occasionally radiating down right buttock, complaining also of pain on anterior aspect right hip with flexion extension of joint, and abduction of right hip joint PFSH Medical History (Updated 12/11/23 @ 22:30 by Emily Desai MD) History of adenomatous polyp of colon Hip pain, right Pompholyx dermatitis Lumbar back pain with radiculopathy affecting lower extremity Dyslipidemia Vitamin D deficiency Polyarthralgia History of cystocele External hemorrhoids Tear of meniscus of left knee HX: benign breast biopsy Anxiety and depression Surgical History H/O colonoscopy Hx of LASIK H/O arthroscopy of shoulder Hx of cervical discectomy Family History Sister Breast cancer, Onset Age: 38 Mother Breast cancer Father Esophageal cancer Maternal Uncle Colon cancer Social History Housing: House Patient Tobacco Use Status: Never used Tobacco e-Cigarette/Vaping Use: Never Used service: No Current occupational status: employed Cognitive needs: No Hearing needs: No Vision needs: Yes Questionnaire PHQ-9 Over the last 2 weeks, how often have you been bothered by any of the following problems? 1. Little interest or pleasure in doing things: not at all 2. Feeling down, depressed, or hopeless: not at all 3. Trouble falling or staying asleep, or sleeping too much: several days 4. Feeling tired or having little energy: several days 5. Poor appetite or overeating: not at all 6. Feeling bad about yourself - or that you are a failure or have let yourself or your family down: not at all 7. Trouble concentrating on things, such as reading the newspaper or watching television: several days 8. Moving or speaking so slowly that other people could have noticed. Or the opposite - being so fidgety or restless that you have been moving around a lot more than usual: more than half the days 9. Thoughts that you would be better off or of hurting yourself in some way: not at all Total score: 5 Depression Screening Interpretation: Negative Depression Screening Done: Yes 63708 - PHQ-9 Billing: Yes Source: Developed by Drs. Chidi Carbone, Williams Quiroz and colleagues, with an educational dawn from [employer]. Thrive Questionnaire Date Thrive assessed: 12/08/23 I am a: Patient What is your living situation today?: I have a steady place to live Within the past 12 months, did the food you bought not last and you didn't have the money to get more?: Never true Within the past 12 months, did you worry whether your food would run out before you got money to buy more?: Never true Do you have trouble paying for medicines?: No Do you have trouble getting transportation to medical appointments?: No Do you have trouble paying your heating and electricity bill?: No Do you have trouble taking care of your child, family member or friend?: No Do you have trouble with day-to-day activities such as bathing, preparing meals, shopping, managing finances, etc.?: No Are you currently unemployed and looking for a job?: No Are you interested in more education?: No Please select the resources that you would like help with: None Currently or been in a relationship where the following occur: No concerns reported THRIVE Score: 0 AUDIT C Alcohol Use Questionnaire (AUDIT-C) 1. How often do you have a drink containing alcohol?: 4 or more times a week 2. How many drinks containing alcohol do you have on a typical day when you are drinking?: 1 or 2 3. How often do you have six or more drinks on one occasion?: Never Total Score: 4 MIGUEL ÁNGEL-7 AMB Questionnaire MIGUEL ÁNGEL-7 Date MIGUEL ÁNGEL - 7 assessed: 12/08/23 Feeling nervous, anxious, or on edge: 1 = Several days Not being able to stop or control worryin = Not at all Worrying too much about different things: 1 = Several days Trouble relaxin = More than half the days Being so restless that it is hard to sit still: 2 = More than half the days Becoming easily annoyed or irritable: 1 = Several days Feeling afraid as if something awful might happen: 0 = Not at all Total MIGUEL ÁNGEL-7 score (0-4 normal; 5-9 mild; 10-14 moderate; 15-21 severe): 7 Source: Developed by Drs. Chidi Carbone, Williams Quiroz and colleagues, with an educational dawn from [employer]. MIGUEL ÁNGEL-7 Assessment Billing MIGUEL ÁNGEL-7 Assessment Tool: MIGUEL ÁNGEL-7 Assessment [id number] Review of Systems Const Reports no additional complaints Eyes Details: , goes to [facility], has a little bit of astigmatism ENT Reports no additional complaints and Reports Normal hearing present Card Reports no additional complaints Resp Reports cough (Mainly at night likely due to postnasal drainage) and Denies wheezing GI Reports no additional complaints, Reports dyspepsia and Reports heartburn (Controlled on omeprazole) Details: She sees Dr. 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[employer] [facility] Reports no additional complaints, Reports Normal hearing present, Denies Abnormal speech present and Reports radicular pain (Right buttock and right thigh) Psych Reports no additional complaints Endo Reports no additional complaints Ruddy/Lymph Reports no additional complaints Aller/Immun Reports seasonal rhinorrhea and Denies wheezing Physical exam (Primary Care) Vital Signs: Last Vital Signs Pulse 76 12/08/23 08:11 BP 116/70 12/08/23 08:11 Pulse Ox 96 12/08/23 08:11 Oxygen Delivery Method Room Air 12/08/23 08:11 BMI result Body Mass Index 27.3 Tobacco/Smoking Status: Tobacco use Status Tobacco use date assessed 12/08/23 12/08/23 08:16 Patient Tobacco Use Status Never used Tobacco 12/08/23 08:16 e-Cigarette/Vaping Use Never Used 12/08/23 08:16 PHQ-9: PHQ-9 Score PHQ-9: Total score 5 12/10/23 09:19 Depression Screening Interpretation: Negative Thrive Assessment: Date of Thrive Assessment Date Thrive assessed 12/08/23 12/08/23 08:18 Currently or been in a relationship where the following occur: No concerns reported Const Other: Alert oriented x3, no acute distress noted, ambulatory normal gait Nutritional Appearance: average body habitus Orientation/consciousness: patient oriented x3 HENMT Head: Yes normocephalic and Yes atraumatic Ears: TM's normal bilaterally and EAC's normal General nose exam: Normal external nose present and No nasal discharge present Face and sinus: Yes face symmetric Mouth: Normal oral and palatal mucosa present and oropharynx normal Teeth and gingiva: dentition normal Eyes General: appearance normal, both eyes and all related structures Alignment and Position: alignment normal Periorbital: periorbital findings normal Eyelids: Yes eyelids normal Conjunctivae: conjunctivae normal Sclerae: sclerae normal Pupils: Equal, round and reactive pupils present EOM: EOMs intact bilaterally Neck Neck: Yes full ROM, Yes no lymphadenopathy and Yes supple Thyroid: Thyroid normal (Nonpalpable) Chest Chest palpation & inspection: normal inspection of the chest Breast/axilla palpation: normal palpation of the breasts Resp Effort & Inspection: normal respiratory effort and able to speak in complete sentences Auscultation: clear to auscultation bilaterally Cardio Other: S1-S2 present regular rate and rhythm Bruits: no abdominal aortic bruits Peripheral pulses: popliteal pulses present, posterior tibial pulses present and dorsalis pedis present GI Palpation (GI): No Abdominal aortic bruit present, Soft to palpation, nontender and no masses Auscultation: normal bowel sounds General: Yes deferred (Currently sees OBGYN- Dr. Lopez) Back/Spine/Pelvis Thoracic/Lumbar Spine: straight leg raise negative bilaterally, bend over test abnormal and pain with thoraco-lumbar ROM Skin Rashes: no rashes Neuro General: patient oriented x3, gait normal, moves all extremities, Normal light touch and pain sensation, no focal motor deficits and CN's II-XI intact bilaterally Cranial nerves: Yes Equal, round and reactive pupils present and Yes Normal hearing present Speech: No Abnormal speech present Gait exam (Neuro): Normal gait present Motor exam (neuro): 5/5 motor strength present throughout Extrem General: Yes full ROM, Yes no joint enlargement, Yes no pedal edema, Yes no calf tenderness and Yes normal gait Psych Appearance: grossly normal and well kempt Mental Status: mental status grossly normal Speech and movement: Normal speech and movement present Affect: normal affect Attitude: cooperative Thought process: Normal thought process present Thought content: Normal thought content present Assessment and Plan Assessment & Plan (1) Annual visit for general adult medical examination with abnormal findings: Code(s): Z00.01 - Encounter for general adult medical examination with abnormal findings Plan: Will check appropriate labs. Continue regular dental visit every 6 months and regular eye exams, at least every 2 years. Take adequate calcium in diet and vitamin-D 3 at 2000 IU per cap once a day, in addition to weight-bearing exercises to help maintain good muscle tone and weight control. Instructed to do self-breast exam, and continue with yearly mammogram, currently up-to-date and ordered by her OBGYN at [facility], who also does her routine Pap and pelvic exams. Up-to-date with her screening colonoscopy done in 2022 with removal of a tubulo-villous adenoma , repeat due again in 2025 . Up-to-date with her Tdap and shingles vaccination, reminded to get her yearly flu shot and recommended to get updated COVID vaccine booster (2) Lumbar back pain with radiculopathy affecting lower extremity: Code(s): M54.16 - Radiculopathy, lumbar region Plan: Ordered MRI of lumbar spine (3) Anxiety and depression: Code(s): F41.9 - Anxiety disorder, unspecified; F32.A - Depression, unspecified Plan: Continue sertraline 50 mg daily (4) Polyarthralgia: Code(s): M25.50 - Pain in unspecified joint Plan: Takes Celebrex as needed (5) Vitamin D deficiency: Code(s): E55.9 - Vitamin D deficiency, unspecified Plan: Ordered vitamin-D (6) Dyslipidemia: Code(s): E78.5 - Hyperlipidemia, unspecified Plan: Fasting lipid panel and liver enzymes ordered (7) Hip pain, right: Code(s): M25.551 - Pain in right hip Plan: X-ray right hip joint ordered (8) Pompholyx dermatitis: Comment: feet Code(s): L30.1 - Dyshidrosis [pompholyx] Plan: Refill sent for triamcinolone acetonide cream, to be used as directed (9) History of adenomatous polyp of colon: Code(s): Z86.010 - Personal history of colonic polyps Plan: Repeat colonoscopy due again in [address] Fairchild Orders: Orders Lipid Panel 12/08/23 E55.9 - Vitamin D deficiency, unspecified, E78.5 - Hyperlipidemia, unspecified, F32.A - Depression, unspecified, F41.9 - Anxiety disorder, unspecified, M25.50 - Pain in unspecified joint, M25.551 - Pain in right hip, R53.83 - Other fatigue, Z00.01 - Encounter for general adult medical examination with abnormal findings Vitamin D 25-OH Total 12/08/23 E55.9 - Vitamin D deficiency, unspecified, E78.5 - Hyperlipidemia, unspecified, F32.A - Depression, unspecified, F41.9 - Anxiety disorder, unspecified, M25.50 - Pain in unspecified joint, M25.551 - Pain in right hip, R53.83 - Other fatigue, Z00.01 - Encounter for general adult medical examination with abnormal findings Aspartate Amino Transferase 12/08/23 E55.9 - Vitamin D deficiency, unspecified, E78.5 - Hyperlipidemia, unspecified, F32.A - Depression, unspecified, F41.9 - Anxiety disorder, unspecified, M25.50 - Pain in unspecified joint, M25.551 - Pain in right hip, R53.83 - Other fatigue, Z00.01 - Encounter for general adult medical examination with abnormal findings Alanine Aminotransferase 12/08/23 E55.9 - Vitamin D deficiency, unspecified, E78.5 - Hyperlipidemia, unspecified, F32.A - Depression, unspecified, F41.9 - Anxiety disorder, unspecified, M25.50 - Pain in unspecified joint, M25.551 - Pain in right hip, R53.83 - Other fatigue, Z00.01 - Encounter for general adult medical examination with abnormal findings XR hip RT min 2V 12/08/23 M25.551 - Pain in right hip MR lumbar spine wo con 12/08/23 M54.16 - Radiculopathy, lumbar region Basic Metabolic Panel Fasting 12/08/23 E55.9 - Vitamin D deficiency, unspecified, E78.5 - Hyperlipidemia, unspecified, F32.A - Depression, unspecified, F41.9 - Anxiety disorder, unspecified, M25.50 - Pain in unspecified joint, M25.551 - Pain in right hip, R53.83 - Other fatigue, Z00.01 - Encounter for general adult medical examination with abnormal findings Medications: Refilled triamcinolone acetonide 0.025% 1 appl topical BID 10 days 15 grams 0RF Coding Level of Care Code Est Pt Prev Care 40-64y(69207) Diagnoses Annual visit for general adult medical examination with abnormal findings Z00.01 Lumbar back pain with radiculopathy affecting lower extremity M54.16 Anxiety and depression F41.9; F32.A Polyarthralgia M25.50 Vitamin D deficiency E55.9 Dyslipidemia E78.5 Hip pain, right M25.551 Pompholyx dermatitis L30.1 History of adenomatous polyp of colon Z86.010 Additional Codes MIGUEL ÁNGEL-7 Assessment Billing - MIGUEL ÁNGEL-7 Assessment Tool: MIGUEL ÁNGEL-7 Assessment [id number] ([id number])
== END 2023-12-08 08:48 | disposition home or self-care (01) ==
PROVIDERS: PCP Internal Medicine; Visit Provider Internal Medicine
DX: Z00.00 Encounter for general adult medical examination without abnormal findings (principal); M54.16 Radiculopathy, lumbar region; F41.9 Anxiety disorder, unspecified; F32.A Depression, unspecified; M25.50 Pain in unspecified joint; E55.9 Vitamin D deficiency, unspecified; E78.5 Hyperlipidemia, unspecified; M25.551 Pain in right hip; L30.1 Dyshidrosis [pompholyx]; Z86.010 Personal history of colon polyps
CPT/HCPCS: 99396

== ENCOUNTER 2023-12-08 08:50 | Outpatient (REF) | payer OTHER, SELFPAY ==
--- NOTE | ~2023-12-08 | XR_ITS ---
EXAMINATION: XR HIP, RIGHT CLINICAL INFORMATION: Right hip pain COMPARISON: None available. TECHNIQUE: Two views of the right hip. FINDINGS: No fracture. Alignment is anatomic. Hip joint space is maintained. Soft tissues are unremarkable. XR/XR hip RT min 2V IMPRESSION: Normal right hip. Electronically signed by: Rahul Bazzi MD 12/14/2023 10:24 AM EDT
[2023-12-08 10:32] LABS: Alanine Aminotransferase 15 U/L (0-31); Anion Gap 11 (12-20); Aspartate Amino Transferase 15 U/L (5-31); Blood Urea Nitrogen 18 mg/dL (9-16); Calcium 9.9 mg/dL (8.4-10.2); Carbon Dioxide 27 mmol/L (22-29); Chloride 105 mmol/L (96-108); Cholesterol 206 mg/dL (<200); Estimated Glomerular Filt Rate > 60; Glucose Fasting 96 mg/dL (60-99); HDL Cholesterol 61 mg/dL (>40); LDL Cholesterol Calculated 137 mg/dL (<100); Potassium 4.4 mmol/L (3.3-5.1); Sodium 139 mmol/L (135-145); Triglycerides 43 mg/dL (<150)
[2023-12-08 10:37] LABS: Vitamin D 25-OH Total 68.8 ng/mL (>30)
== END 2023-12-08 08:51 | disposition home or self-care (01) ==
LOC: HO.HMGCX 08:50
PROVIDERS: PCP Internal Medicine; Visit Provider Internal Medicine
DX: M25.551 Pain in right hip (principal); F32.A Depression, unspecified; F41.9 Anxiety disorder, unspecified; R53.83 Other fatigue; E78.5 Hyperlipidemia, unspecified; E55.9 Vitamin D deficiency, unspecified; M25.50 Pain in unspecified joint; Z00.01 Encounter for general adult medical examination with abnormal findings
CPT/HCPCS: 36415; 73502; 80048; 80061; 82306; 84450; 84460

== ENCOUNTER 2024-01-20 09:31 | Outpatient (AMB) | payer OTHER, SELFPAY ==
[2024-01-20 09:35] VITALS: BP 101/68; PULSE 75; BMI 27.3
--- NOTE | 2024-01-20 09:35 | MHC.OFFVIS ---
Vital Signs 01/20/24 09:35 Height 5 ft Weight 140 lb BMI 27.3 BP 101/68 Blood Pressure Location Lt brachial Position Sitting Pulse 75 Intake Visit Reasons: 6 month follow up Intake Note: Jacque presents to 6 months follow up of GERD. CC: Patient reports that sometimes she gets constipation or diarrhea but right now she is having formed stool. She also reports that she is undergoing a procedure on her breast in January d/t discharge. Per patient she also get nauseous. Denies other GI symptoms today. 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 Allergies amoxicillin Adverse Reaction (Intermediate, Verified 01/20/24 09:41) Rash TAPE,PLASTIC Allergy (Intermediate, Uncoded 12/08/23 08:21) rash/itching HPI HPI 6 month follow up: Details: ssessment & Plan (1) Nausea and vomiting: Code(s): R11.2 - Nausea with vomiting, unspecified Category: Medical (2) Vitamin D deficiency: Code(s): E55.9 - Vitamin D deficiency, unspecified Category: Medical (3) Fatigue: Code(s): R53.83 - Other fatigue Category: Medical (4) Tubulovillous adenoma of colon: Comment: 05/2023= hyperplastic polyps only repeat in 5 years; 05/2022 scope=tVA, rov 6 mos and 1 year scope repeat aeb Code(s): D12.6 - Benign neoplasm of colon, unspecified Category: Medical Plan She is agreeable to a 5 year follow-up. The procedure was well tolerated. The results were explained and the patient is agreeable to the follow-up interval as stated. The bowel pattern has returned to normal. Education was provided to tell any 1st degree relatives about their findings to be sure that they are screened by age 45. Educated that they will be put on a recall list when it is time for their repeat scope but should they move out of state or away from the hospital they will need to remember along with their primary to repeat the procedure in a timely fashion to avoid any adverse complications. She continues to do well on her omeprazole and this is controlling her nausea and her heartburn. She continues to try to explore why she has body wide joint aches. She is happy to discovered that there is no severe pathology discovered on her upper endoscopy. Rov 6 mos. Medications: Refilled omeprazole 40 mg PO DAILY 90 caps 1RF She is feeling generally better with the o2o, but does have to watch what she eats. Her N/V has decreased quite a bit. The EGD/colonoscopy is upcoming in May. The HP was negative, so this is not a cause. She is very fatigued and has joint aches. She seems to sleep well, but wants day time naps. Has a hx of vit D def. Will do lyme, TSH, b vit and vit D test for her. I am doing these tests to try to point in the right direction but leave further testing or treatment referrals to her primary care provider. At this point she will keep her appointment June 28 after her endoscopy and contact me sooner if she has any further complaints.. (2) Tubulovillous adenoma of colon: Comment: 05/2022 scope=tVA, rov 6 mos and 1 year scope repeat aeb Code(s): D12.6 - Benign neoplasm of colon, unspecified (3) Fatigue: Code(s): R53.83 - Other fatigue (4) Polyarthralgia: Code(s): M25.50 - Pain in unspecified joint Orders: Orders TSH reflex Free T4 Today M25.50 - Pain in unspecified joint, R11.2 - Nausea with vomiting, unspecified, R53.83 - Other fatigue Vitamin D 25-OH (D2 and D3) Today M25.50 - Pain in unspecified joint, R11.2 - Nausea with vomiting, unspecified, R53.83 - Other fatigue Vitamin B12 and Folate Today M25.50 - Pain in unspecified joint, R11.2 - Nausea with vomiting, unspecified, R53.83 - Other fatigue Lyme IgG/IgM w/reflex to WB Today M25.50 - Pain in unspecified joint, R11.2 - Nausea with vomiting, unspecified, R53.83 - Other fatigue LABS: Laboratory Tests 03/04/23 12:04 Vitamin B12 594 25-OH Vitamin D Total 29 L Folate 7.9 TSH 1.08 Lyme Screen IgG & IgM <0.90 TODAY'S VISIT She had nipple leakage and because her sister had breast ca, she presented to her [facility] INST[employer]ATION [facility] and had a needle biopsy that was negative and she will be having a partial mass removal. She has some IBS and takes benefiber regularly, she also has intermittent nausea she blames on hormone shift as she is going through menopause. She also will be having a tummy tuck type surgery soon. ROV 6 mos. PFSH Medical History (Updated 01/20/24 @ 10:15 by GEGE Soriano) Nausea and vomiting History of adenomatous polyp of colon Hip pain, right Pompholyx dermatitis Lumbar back pain with radiculopathy affecting lower extremity Dyslipidemia Vitamin D deficiency Polyarthralgia History of cystocele External hemorrhoids Tear of meniscus of left knee HX: benign breast biopsy Anxiety and depression Surgical History H/O colonoscopy Hx of LASIK H/O arthroscopy of shoulder Hx of cervical discectomy Family History Sister Breast cancer, Onset Age: 38 Mother Breast cancer Father Esophageal cancer Maternal Uncle Colon cancer Social History Housing: House Patient Tobacco Use Status: Never used Tobacco e-Cigarette/Vaping Use: Never Used service: No Current occupational status: employed Cognitive needs: No Hearing needs: No Vision needs: Yes Review of Systems Const Denies fatigue, Denies fever(s), Denies night sweats, Denies poor appetite and Denies weight loss ENT Reports Normal hearing present, Denies dental pain, Denies dysphagia, Denies hearing loss, Denies mouth pain, Denies odynophagia, Denies throat swelling, Denies tongue swelling and Reports other (Dentition adequate) Card Reports no additional complaints Resp Reports no additional complaints GI Details: Denies abdominal pain, Denies melena, Denies bloating, Denies hematochezia, Denies constipation, Reports GI cramping, Denies dysphagia, Denies excessive flatus, Denies early satiety, Reports heartburn, Denies diarrhea, Reports nausea, Denies odynophagia, Denies vomiting and Denies hematemesis Skin/Breast Reports breast mass (With nipple discharge), Denies pruritus, Denies lesions, Denies rash and Denies jaundice Neuro Reports Normal hearing present and Denies Abnormal speech present Endo Denies fatigue and Reports flushing Aller/Immun Denies throat swelling and Denies tongue swelling Physical Exam Vital Signs: Last Vital Signs Pulse 75 01/20/24 09:35 BP 101/68 01/20/24 09:35 BMI result Body Mass Index 27.3 Const General: cooperative, no acute distress, well developed and well groomed Nutritional Appearance: average body habitus and well nourished Orientation/consciousness: oriented to person, oriented to place and oriented to time Limitations: No language barrier HEENT Head: Yes normocephalic and Yes atraumatic Eyes General: appearance normal, both eyes and all related structures Pupils: Equal, round and reactive pupils present Neck Neck: Yes normal visual inspection and Yes no lymphadenopathy Thyroid: Thyroid normal Resp Effort & Inspection: normal respiratory effort and able to speak in complete sentences Auscultation: clear to auscultation bilaterally Cardio Rate: regular rate Rhythm: regular rhythm Heart sounds: Normal, physiologic split S2 sound present Peripheral pulses: radial pulses present and posterior tibial pulses present GI Inspection: No distended and No Abdominal panniculus present Palpation (GI): Soft to palpation, nontender, no guarding, not rigid and No hepatosplenomegaly present Percussion: Yes normal to percussion Auscultation: normal bowel sounds Rectal Exam - Female: deferred Skin General skin exam: no rashes or lesions noted, turgor normal, skin not dry, no jaundice, No spider nevi and no striae Rashes: no rashes Nails: normal Neuro General: oriented to person, oriented to place and oriented to time Cranial nerves: Yes Equal, round and reactive pupils present and Yes Normal hearing present Speech: No Abnormal speech present Extrem General: Yes normal to inspection, No clubbing, No cyanosis and No edema Psych Appearance: grossly normal and well kempt Mental Status: mental status grossly normal Speech and movement: Normal speech and movement present Affect: normal affect Attitude: cooperative Thought process: Normal thought process present and not confabulating Thought content: Normal thought content present Insight: Good insight present (Psych) Judgement: Good judgement present (Psych) Assessment & Plan Assessment & Plan (1) GERD (gastroesophageal reflux disease): Code(s): K21.9 - Gastro-esophageal reflux disease without esophagitis Category: Medical Plan She had nipple leakage and because her sister had breast ca, she presented to her [facility] [facility] and had a needle biopsy that was negative and she will be having a partial mass removal. She has some IBS and takes benefiber regularly, she also has intermittent nausea she blames on hormone shift as she is going through menopause. She also will be having a tummy tuck type surgery soon. ROV 6 mos. Coding Level of Care Code Est Pt Level 3 (59221) Diagnoses GERD (gastroesophageal reflux disease) K21.9
== END 2024-01-20 10:18 | disposition home or self-care (01) ==
PROVIDERS: PCP Internal Medicine; Visit Provider Nurse Practitioner
DX: K21.9 Gastro-esophageal reflux disease without esophagitis (principal)
CPT/HCPCS: 99213

== ENCOUNTER → 2024-01-20 09:31 | Outpatient (BNVA) | payer OTHER, SELFPAY | PROVIDERS: PCP Internal Medicine; Visit Provider Nurse Practitioner ==

== ENCOUNTER 2024-07-20 09:20 | Outpatient (AMB) | payer OTHER, SELFPAY ==
--- NOTE | 2024-07-20 09:27 | A.OFFVIS_ITS ---
Vital Signs 07/20/24 09:38 Height 5 ft 2 in Weight 136 lb 10.986 oz BMI 25.0 BP 102/60 Blood Pressure Location Rt brachial Position Sitting Pulse 76 Intake Visit Reasons: 6 month follow up Intake Note: Jacque presents in the office as a 6 month follow up. CC: She states that everything seems to be the same. She does not have any concerns at this time. Allergies amoxicillin Adverse Reaction (Intermediate, Verified 07/20/24 09:38) Rash TAPE,PLASTIC Allergy (Intermediate, Uncoded 07/20/24 09:38) rash/itching Medication List - Last Reconciled 07/20/24 by GEGE Soriano celecoxib (Celebrex) 200 mg PO DAILY PRN loratadine (Claritin) 10 mg PO DAILY omeprazole 40 mg PO DAILY ondansetron HCl 4 mg PO BID-TID PRN 14 days sertraline (Zoloft) 50 mg PO DAILY triamcinolone acetonide 0.025% 1 appl topical BID 10 days wheat dextrin (Benefiber Healthy Shape) grams PO HPI HPI 6 month follow up: Details: Assessment & Plan (1) GERD (gastroesophageal reflux disease): Code(s): K21.9 - Gastro-esophageal reflux disease without esophagitis Category: Medical Plan She had nipple leakage and because her sister had breast ca, 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 She has some IBS and takes benefiber regularly, she also has intermittent nausea she blames on hormone shift as she is going through menopause. She also will be having a tummy tuck type surgery soon. ROV 6 mos. TODAY'S VISIT She continues on her omeprazole with good effect and she continues her benefiber daily and her bowels are up and down, but she desires no change in her regimen at t his time. Her breast problem was completely removed and was pre cancerous. She is being followed by onc. She had her tummy tuck and it went well. ROV 6 mos. [facility] Medical History Nausea and vomiting History of adenomatous polyp of colon Hip pain, right Pompholyx dermatitis Lumbar back pain with radiculopathy affecting lower extremity Dyslipidemia Vitamin D deficiency Polyarthralgia History of cystocele External hemorrhoids Tear of meniscus of left knee HX: benign breast biopsy Anxiety and depression Surgical History Hx of abdominoplasty History of lumpectomy of left breast H/O colonoscopy Hx of LASIK H/O arthroscopy of shoulder Hx of cervical discectomy Family History Sister Breast cancer, Onset Age: 38 Mother Breast cancer Father Esophageal cancer Maternal Uncle Colon cancer Social History Housing: House Patient Tobacco Use Status: Never used Tobacco e-Cigarette/Vaping Use: Never Used service: No Current occupational status: employed Cognitive needs: No Hearing needs: No Vision needs: Yes Review of Systems Const Denies fatigue, Denies fever(s), Denies night sweats, Denies poor appetite and Denies weight loss ENT Reports Normal hearing present, Denies dental pain, Denies dysphagia, Denies hearing loss, Denies mouth pain, Denies odynophagia, Denies throat swelling, Denies tongue swelling and Reports other (Dentition adequate) Card Reports no additional complaints Resp Reports no additional complaints GI Details: Denies abdominal pain, Denies melena, Denies bloating, Denies hematochezia, Reports constipation, Denies GI cramping, Denies dysphagia, Denies excessive flatus, Denies early satiety, Reports heartburn, Reports diarrhea, Denies nausea, Denies odynophagia, Denies vomiting and Denies hematemesis Skin/Breast Denies pruritus, Denies lesions, Denies rash and Denies jaundice Neuro Reports Normal hearing present and Denies Abnormal speech present Endo Denies fatigue Aller/Immun Denies throat swelling and Denies tongue swelling Physical Exam Vital Signs: Last Vital Signs Pulse 76 07/20/24 09:38 BP 102/60 07/20/24 09:38 BMI result Body Mass Index 25.0 Const General: cooperative, no acute distress, well developed and well groomed Nutritional Appearance: average body habitus and well nourished Orientation/consciousness: oriented to person, oriented to place and oriented to time Limitations: No language barrier HEENT Head: Yes normocephalic and Yes atraumatic Eyes General: appearance normal, both eyes and all related structures Pupils: Equal, round and reactive pupils present Neck Neck: Yes normal visual inspection and Yes no lymphadenopathy Thyroid: Thyroid normal Resp Effort & Inspection: normal respiratory effort and able to speak in complete sentences Auscultation: clear to auscultation bilaterally Cardio Rate: regular rate Rhythm: regular rhythm Heart sounds: Normal, physiologic split S2 sound present Peripheral pulses: radial pulses present and posterior tibial pulses present GI Inspection: No distended and No Abdominal panniculus present Palpation (GI): Soft to palpation, nontender, no guarding, not rigid and No hepatosplenomegaly present Percussion: Yes normal to percussion Auscultation: normal bowel sounds Rectal Exam - Female: deferred Skin General skin exam: no rashes or lesions noted, turgor normal, skin not dry, no jaundice, No spider nevi and no striae Rashes: no rashes Nails: normal Neuro General: oriented to person, oriented to place and oriented to time Cranial nerves: Yes Equal, round and reactive pupils present and Yes Normal hearing present Speech: No Abnormal speech present Extrem General: Yes normal to inspection, No clubbing, No cyanosis and No edema Psych Appearance: grossly normal and well kempt Mental Status: mental status grossly normal Speech and movement: Normal speech and movement present Affect: normal affect Attitude: cooperative Thought process: Normal thought process present and not confabulating Thought content: Normal thought content present Insight: Fair insight present (Psych) Judgement: Fair judgement present (Psych) Assessment & Plan Assessment & Plan (1) GERD (gastroesophageal reflux disease): Code(s): K21.9 - Gastro-esophageal reflux disease without esophagitis Category: Medical Plan She continues on her omeprazole with good effect and she continues her benefiber daily and her bowels are up and down, but she desires no change in her regimen at t his time. Her breast problem was completely removed and was pre cancerous. She is being followed by onc. She had her tummy tuck and it went well. ROV 6 mos. Medications: Refilled omeprazole 40 mg PO DAILY 90 caps 1RF Coding Level of Care Code Est Pt Level 3 (96504) Diagnoses GERD (gastroesophageal reflux disease) K21.9
[2024-07-20 09:38] VITALS: BP 102/60; PULSE 76; BMI 25.0
--- OUTSIDE RECORDS SUMMARY | 2024-07-20 10:14 | XMS_ITS | Clinical Summary ---
Author Organization [facility] Address [address] [place] [address] Care Team Providers Care Track Equipment Operator Name Role Phone José Luis Pepe MD Primary Care Provider [phone] Allergies Active Allergy Reactions Criticality Noted Date Comments Adhesive Tape 12/15/2018 Amoxicillin 01/16/2020 Medications Medication Sig Dispensed Refills Start Date End Date Status citalopram (CeleXA) 20 MG tablet citalopram 20 mg tablet 0 Active gabapentin (NEURONTIN) 100 MG capsule daily. 0 Active HYDROcodone-acetami nophen (NORCO) 5-325 MG per tablet Take 1 to 2 tabs every 6 hours as needed for pain 20 tablet 0 10/03/2019 Active sertraline (ZOLOFT) 25 MG tablet Take 25 mg by mouth daily. 0 Active celecoxib (CeleBREX) 200 MG capsule Take 1 capsule (200 mg total) by mouth daily. 30 capsule 2 06/26/2021 Active Active Problems Problem Noted Date Diagnosed Date Iliotibial band syndrome affecting left lower le g 06/26/2021 Effusion of left knee joint 06/26/2021 Arthritis of knee, left 06/26/2021 Lumbar back pain with radicu lopathy affecting left lower extremity 06/26/2021 Patellofemoral syndrome of left knee 12/15/2018 Family History Medical History Relation Name Comments Cancer Father Hypertension Father Cancer Mother Cancer Sister Relation Name Status Comments Father Mother Sister Social History Tobacco Use Types Packs/Day Years Used Date Smoking Tobacco: Never Assessed Sex and Gender Information Value Date Recorded Sex Assigned at Not on file Gender Identity Not on file Sexual Orientation Not on file Job Start Date Occupation Industry Not on file Not on file Not on file Last Filed Vital Signs Vital Sign Reading Time Taken Comments Blood Pressure - - Pulse - - Temperature - - Respiratory Rate - - Oxygen Saturation - - Inhaled Oxygen Concentration - - Weight 66.7 kg (147 lb) 12/15/2018 1:14 PM EDT Height 152.4 cm (5') 12/15/2018 1:14 PM EDT Body Mass Index 28.71 12/15/2018 1:14 PM EDT Plan of Treatment Health Maintenance Due Date Last Done Comments Hepatitis B Vaccines (1 of 3 - 3-dose series) 1972 Hepatitis C Screening 1972 COVID-19 Vaccine (#1) 1972 Depression Screening 1984 BMI Counseling 1990 Preventative Health Evaluation 1990 DTap / Tdap / Td (1 - Tdap) 1991 Cervical Cancer Screening (P ap Smear) 1993 Colon Cancer Screening (Colonoscopy) 2017 Breast Cancer Screening (Mammogram) 2022 Shingrix-Zoster Vaccine (1 of 2) 2022 Influenza Vaccine (#1) 2023 Pneumococcal Vaccine Aged Out No long er eligible based on patient's age to complete this topic RSV Ped < 20 months Aged Out No longe r eligible based on patient's age to complete this topic Care Teams Track Equipment Operator Relationship Specialty Start Date End Date José Luis Pepe MD [address] [facility] [address] [place] [address] PCP - General Internal Medicine 12/15/18
== END 2024-07-20 10:09 | disposition home or self-care (01) ==
LOC: HO.HGI 09:20
PROVIDERS: PCP Internal Medicine; Visit Provider Nurse Practitioner
DX: K21.9 Gastro-esophageal reflux disease without esophagitis (principal)
CPT/HCPCS: 99213

== ENCOUNTER 2024-10-19 08:09 | Outpatient (AMB) | payer OTHER, SELFPAY ==
--- OUTSIDE RECORDS SUMMARY | 2024-10-19 08:17 | XMS_ITS ---
Author Name [facility] Organization Unknown History of Medication Use Medication Directions Dispensed Refills Start Date End Date Stat us GaviLyte-G 236 gram-22.74 gram-6.74 gram-5.86 gram oral solution PLEASE SEE ATTACHED FOR DETAILED DIRECTIONS active prednisone 20 mg tablet SEE TAPER SHEET active sertraline 50 mg tablet TAKE 1 TABLET BY MOUTH EVERY DAY active Allergies Allergen Reaction Severity Comment Documented Date Source Statu s AMOXICILLIN [facility] Problems Problem Status Onset Date Problem Type Date of Resoluti on Source Patellofemoral syndrome of right knee active 2022-09-14 ProblemAct [facility] Patellofemoral syndrome of left knee active 2022-07-09 ProblemAct [facility] Pain of left knee joint active 2022-08-17 ProblemAct [facility] Encounters Encounter Type Encounter Reason Primary Diagnosis Location Date Ambulatory [facility] [place] 09/14/2022 Ambulatory [facility] [place] 08/17/2022 Ambulatory [facility] [place] 08/17/2022 Ambulatory [facility] [place] 08[facility]17/2022 Ambulatory [facility] [place] 08/13/2022
--- OUTSIDE RECORDS SUMMARY | 2024-10-19 08:17 | XMS_ITS | Data Portability ---
Author Organization [place] [facility] [place] Address [address] [place] [address] Care Team Providers Care Dye Worker Name Role Phone ROBY ARANA Primary Care Provider Assessment Encounter Date Assessment Date Assessment LastModified by Organization Details LastModified Time 07/09/2022 07/09/2022 Pleasant 52-year -old female with likely arthritic flare of her left knee versus patellofemoral syndrome. I had a lengthy discussion with patient guarding management. She does not elicit any mechanical symptoms that are reproducible. We did discuss hmfa-njg-vgphxby treatment modalities however she did opt for cortisone injection at today's visit. After verbal consent was granted the left knee was injected. The patient tolerated the procedure well. Aftercare instructions were discussed in detail. I offered her a follow-up visit in approximately 6 weeks for which she may decide on keeping it as an as needed follow-up. She agrees with the above-noted plan. Indirect care and treatment in conjunction with Dr. Dubon Additional treatment plan discussed with the patient in detail included the following; - Provider focused nonsteroidal anti-inflammatory regimen (discussed were the pros, cons, benefits and risks as well as any black box warnings) - Analgesic pain medication for pain suppression (discussed were the pros, cons, benefits and risks as well as any black box warnings) - The use of topical pain relieving medication were discussed - The use of ice to decrease inflammation and pain - The use of assistive ambulatory devices for ambulation and fall prevention - Formal specific guided physical therapy program I reviewed my findings at length with the patient today. We discussed the nature and etiology of this problem along with current treatment options. We discussed the expected course and outcomes and what to expect. We also discussed risks and benefits. All of their questions were answered today, and there was exhibited understanding and comprehension of all that was discussed. 10 minutes were spent reviewing previous imaging and charting. 10 minutes were spent obtaining patient history. 5 minutes were spent on physical exam. 5minutes were spent explaining diagnosis and assessment. Today's documentation was made using voice recognition software. This note may contain grammatical errors secondary to the software. Not available 07/09/2022 09:12:53 08/17/2022 08/17/2022 52 year-old fema le following up on her left knee due to patellofemoral syndrome treated with cortisone injection on 07/09/2022. With no notable improvement. Still ongoing lingering symptoms she does not know she has underlying mild arthritic change we did discuss viscosupplementation injections. As well as jgwv-vwc-legwaut treatments and physical therapy. She is amenable to the following; 1. Formal physical therapy 2 times a week x6 weeks. If after that or if she can.continue I will order an MRI for which then I will have her see Dr. Pablo in follow-up. She agrees with the above-noted plan. Indirect care and treatment in conjunction with Dr. Dubon Additional treatment plan discussed with the patient in detail included the following; - Provider focused nonsteroidal anti-inflammatory regimen (discussed were the pros, cons, benefits and risks as well as any black box warnings) in patients over 60 years old they should be very cautious in taking these medications due to potential decreased kidney function and or elevated blood pressure. - Analgesic pain medication for pain suppression (discussed were the pros, cons, benefits and risks as well as any black box warnings) - The use of topical pain relieving medication were discussed - The use of ice to decrease inflammation and pain - The use of assistive ambulatory devices for ambulation and fall prevention - Formal specific guided physical therapy program I reviewed my findings at length with the patient today. We discussed the nature and etiology of this problem along with current treatment options. We discussed the expected course and outcomes and what to expect. We also discussed risks and benefits. All of their questions were answered today, and there was exhibited understanding and comprehension of all that was discussed. Time Spent: 10 minutes were spent reviewing previous imaging and charting. 10 minutes were spent obtaining patient history. 5 minutes were spent on physical exam. 5minutes were spent explaining diagnosis and assessment. Today's documentation was made using voice recognition software. This note may contain grammatical errors secondary to the software. Not available 08/17/2022 08:55:29 09/14/2022 09/14/2022 Patient was give n formal physical therapy for ongoing left knee pain for which she notes improvement most notably after Celebrex. I will give her a refill she will follow-up as needed. Indirect care and treatment in conjunction with Dr. Dubon Additional treatment plan discussed with the patient in detail included the following; - Provider focused nonsteroidal anti-inflammatory regimen (discussed were the pros, cons, benefits and risks as well as any black box warnings) in patients over 60 years old they should be very cautious in taking these medications due to potential decreased kidney function and or elevated blood pressure. - Analgesic pain medication for pain suppression (discussed were the pros, cons, benefits and risks as well as any black box warnings) - The use of topical pain relieving medication were discussed - The use of ice to decrease inflammation and pain - The use of assistive ambulatory devices for ambulation and fall prevention - Formal specific guided physical therapy program I reviewed my findings at length with the patient today. We discussed the nature and etiology of this problem along with current treatment options. We discussed the expected course and outcomes and what to expect. We also discussed risks and benefits. All of their questions were answered today, and there was exhibited understanding and comprehension of all that was discussed. Time Spent: 10 minutes were spent reviewing previous imaging and charting. 10 minutes were spent obtaining patient history. 5 minutes were spent on physical exam. 5minutes were spent explaining diagnosis and assessment. Today's documentation was made using voice recognition software. This note may contain grammatical errors secondary to the software. Not available 09/14/2022 08:58:02 Plan of Treatment Reminders Order Date Submit Date Provider Last Modified By Organization Details Last Modified Time Details Appointments None recorded. Lab None recorded. Referral physical therapist referral - LEFT patellar femoral syndrome and fat pad impingment 2022 023 [email or web address] Not available 08:15:14 Procedures None recorded. Surgeries None recorded. Imaging XR, knee, 4 or more view 2022 023 [facility], [address], [place], [address], 13:02:37 Medication Orders Celebrex 200 mg capsule 2022 023 [facility]/Pharmacy #[id number], [address] [place], [address], 08:58:51 Kenalog 40 mg/mL suspension for injection [address]/Pharmacy #[id number], [address] [place], [address], 09:13:50 lidocaine (PF) 10 mg/mL (1 %) injection solution 2022 [address]23 [id number] [place], [address], 09:13:50 Patient TargetsNo targets recorded. Patient Instructions Encounter Date Encounter Id Patient Instructions Last Modified By Organization Details Last Modified Time 07/09/2022 [id number] You have been provided with a cortisone injection in order to reduce the pain and inflammation that you are experiencing. The injection consists of two medications. Cortisone (an anti-inflammatory that will take 48-72 hours to take effect) and Lidocaine (a numbing agent that will last 2-3 hours). Please note that not everyone will have a lasting response following the injection. PATIENT INSTRUCTIONS Once the Lidocaine wears off, you may have an increase in your pain. I recommend icing the affected area for 20 minutes 3-4 times per day. It is recommended that you refrain from any high level activities using the joint or limb that was injected for approximately 24-48 hours. Normal day-to-day activities are generally not a problem. POSSIBLE SIDE EFFECTS Individuals with dark complexions may experience some skin discoloration locally at the site of the injection. There is the possibility of an increase in discomfort within 48 hours following the injection. This is called a flare . To help minimize the chances of this, please see the post-injection instructions above. There is a less than 1% chance of an infection. If you notice any signs of infection (redness, warmth, drainage, fever greater than 100 degrees) please call our office or contact us through the portal MIGUEL. Not available 07/09/2022 09:13:45 4 view x-ray of the left knee reveals overall well-maintained joint space mild subchondral sclerosis medial joint space narrowing best visualized on AP and Dupont view. Lateral and sunrise view without acute bony abnormality no obvious fracture or dislocation. Not available 07/09/2022 09:15:24 Reason for Referral Physical Therapist Referral for Pain of left knee joint LEFT patellar femoral syndrome and fat pad impingment Referring Physician: Lam Dover, Orthopedic Surgery, Encounter Date: 08/17/2022 Problems Name Problem SNOMED Code Status Onset Date Resolution Date Notes Provider Name and Address Organization Details Recorded Time Patellofemo ral syndrome of left knee 3080519300897 107 Active 2022 LAM DOVER PA-C [address], [place], [address], [place] [facility], [facility] 3 09:12:58 Pain of left knee joint 3703625365986 07 Active 2022 LAM DOVER PA-C [address], [place], [address], [place] [facility], [facility] 3 08:42:34 Patellofemo ral syndrome of right knee 6913857750983 103 Active 2022 LAM DOVER PA-C [address], [place], [address], [place] [facility], P 3 08:58:15 Problem Notes None recorded. Procedures Surgical History Date Name Laterality Status Provider Name and Address Organization Details Recorded Time 3 Knee Joint/Bursa Asp & Inj completed LAM DOVER PA-C [address], [place], [address], [place] [facility], P 07/09/2022 09:11:55 Knee Surgery completed Tresa Ibrahim [place] - [facility], P 07/09/2022 08:36:30 Shoulder Surgery completed Tresa Villedalie [facility], P 07/09/2022 08:36:42 Head or Neck Surgery completed Tresa Villedalie [facility], P 07/09/2022 08:36:51 excision of bunion completed [facility], P 09/14/2022 08:44:08 repair of meniscus completed [facility], 09/14/2022 08:45:22 Imaging Results None recorded. Procedure Notes None recorded. Medical Equipment None Reported. Allergies Allergen ID Allergen Name Allergen Category Reaction Reaction Severity Criticality Documentation Date Start Date Code Code System Note Provider Name and Address Organization Details Recorded Time 216 amoxicill in medicatio n Not available Not available Not available 07/09/2022 723 RxNorm [facility] 08:34:43 2162 adhesive tape environme nt,medica tion Not available Not available Not available 07/09/2022 [id number] UNK [facility] 08:34:51 Medications Name Sig Start Date Stop Date Status Note LastModified by Organization Details LastModified Time celecoxib 200 mg capsule TAKE 1 CAPSULE BY MOUTH EVERY DAY active Not Available Not Available No t Available methocarbamo l 500 mg tablet TAKE 2 TABLETS BY MOUTH EVERY 8 HOURS NEEDED FOR PAIN AND/OR MUSCLE SPASMS active Not Available Not Available No t Available prednisone 20 mg tablet SEE TAPER SHEET active Not Available Not Available No t Available Kenalog 40 mg/mL suspension for injection Take 1.5 mL by injection route. 2022 active Not Available Not Available Not Avai lable triamcinolon e acetonide 0.025 % topical cream APPLY TOPICALLY TWICE DAILY FOR TEN DAYS active Not Available Not Available No t Available methylpredni solone 4 mg tablets in a dose pack TAKE 6 TABLETS ON DAY 1 DIRECTED ON PACKAGE AND DECREASE BY 1 TAB EACH DAY FOR A TOTAL OF 6 DAYS active Not Available Not Available No t Available sertraline 50 mg tablet TAKE 1 TABLET BY MOUTH EVERY DAY active Not Available Not Available No t Available lidocaine (PF) 10 mg/mL (1 %) injection solution Take 1.5 mL by injection route. 2022 active Not Available Not Available Not Avai lable GaviLyte-G 236 gram-22.74 gram-6.74 gram-5.86 gram oral solution PLEASE SEE ATTACHED FOR DETAILED DIRECTIONS active Not Available Not Available N ot Available Vitals Date Recorded Body height Body mass index (BMI) Body weight Provider Name and Address Organization Details Last Updated DateTime 09/14/2022 152.4 cm 27.7 kg/m2 33828.[address] [facility] [place] [facility], 09/14/2022 08:41:28 Social History None recorded. Functional Status Question Answer Note LastModified by Organizat ion Details LastModified Time How many times per week do you consume alcohol? 5-7 times per week Information not available 09/14/2022 Do you use any illicit or recreational drugs? No Information not available 09/14/2022 Do you or have you ever used any other forms of tobacco or nicotine? No Information not available 09/14/2022 What is your level of alcohol consumption? Moderate Information not available 09/14/2022 Mental Status None recorded. Family History Relationship Description Onset Age of this Age Resolved Age Notes LastModified by Organization Details LastModified Time Father Family history of malignant neoplasm Not available 2022 08:35:51 Father Hypertensive disorder [email or web address] Not available 2022 08:36:03 Father Hypercholest erolemia Not available 2022 08:43:41 Mother Family history of malignant neoplasm Not available 2022 08:35:51 Sister Family history of malignant neoplasm [email or web address] Not available 2022 08:35:51 Medical History No medical history recorded. Gynecological HistoryNo gynecological history recorded. Obstetrics History GPAL:G 0 P 0 0 0 0 Past Encounters Encounter ID Performer Location Encounter Start Date Encounter Closed Date Diagnosis/Indication Diagnosis SNOMED-CT Code Diagnosis ICD10 Code Diagnosis Note [id number] YADIRA HERNANDEZmarely العراقي [address] [place] [address] [address] [place] [address] 07/09/2022 08:29:07 07/09/2022 09:05:28 Pain of left knee joint 4956166900 61968 M25.562 Patellofem oral syndrome of left knee 5734325507 330034 M22.2X2 [id number] YADIRA HERNANDEZ [facility] [address] [facility] [address] [place] [address] 08/17/2022 08:26:42 08/17/2022 08:46:02 Pain of left knee joint 8965444007 31545 M25.562 Patellofem oral syndrome of left knee 2422138314 889239 M22.2X2 [id number] YADIRA HERNANDEZ [facility] [address] [facility] [address] [place] [address] 09/14/2022 08:30:19 09/14/2022 08:48:19 Pain of left knee joint 4904663683 25396 M25.562 Patellofem oral syndrome of left knee 5172998006 035457 M22.2X2 Health Concerns Section Related Observation LastModified by Organization Detai ls LastModified Time None Recorded Concern Status LastModified by Organization Details LastModified Time None Recorded Advance Directives Directive None Recorded Payers Insurance Date Sequence Insurance Name Policy Number Policy Shaw Covered Member ID Shaw Member ID Guarantor Name 09/14/2022 1 JUAN MOBLEY (PPO) Jacque Blankenship [id number] Jacque Blankenship Notes Date Note Type Note Provider Name and Address Organization Details Recorded Time 3 text/html This is a very pleasant 52-year-old female last seen on 08/07/2021 she has a history of chronic left knee pain that waxes and wanes over the course of the winter. She has had cortisone injections in the past though its been quite some time. She states she is in awkward positions since she is playing with her grandchild which may be exacerbating her symptoms. She denies any injury per se here for evaluation and treatment. LAM DOVER PA-C [address] [address], [place], [address], [place] [facility], P 07/09/2022 09:15:39 3 text/html Assessment & Plan date of visit 07/09/2022leasant 52-year-old female with likely arthritic flare of her left knee versus patellofemoral syndrome. I had a lengthy discussion with patient guarding management. She does not elicit any mechanical symptoms that are reproducible. We did discuss qwwl-hdb-hsjavab treatment modalities however she did opt for cortisone injection at today's visit. After verbal consent was granted the left knee was injected. The patient tolerated the procedure well. Aftercare instructions were discussed in detail. I offered her a follow-up visit in approximately 6 weeks for which she may decide on keeping it as an as needed follow-up. She agrees with the above-noted plan. HPI:62-year-old female returning after treatment with cortisone injection on 07/09/2022 of her left knee due to patellofemoral syndrome. States no notable improvement. She is currently dealing with a back issue which is being treated by another provider. She describes her knee pain is centered at the hemijoint line with sitting position. She states she has not done formal physical therapy. LAM DOVER PA-C [address] [facility],[address] [address], [place], [address], [place] [facility], P 08/17/2022 08:55:59 3 text/html Assessment & Plan: 2 year-old female following up on her left knee due to patellofemoral syndrome treated with cortisone injection on 07/09/2022. With no notable improvement. Still ongoing lingering symptoms she does not know she has underlying mild arthritic change we did discuss viscosupplementation injections. As well as qowb-yqv-sgfgsei treatments and physical therapy. She is amenable to the following; 1. Formal physical therapy 2 times a week x6 weeks. If after that or if she can.continue I will order an MRI for which then I will have her see Dr. Pablo in follow-up. She agrees with the above-noted plan. HPI: Patient notes improvement here for scheduled follow-up she states Celebrex has greatly reduced her symptoms. LAM DOVER PA-C [address] [facility],[address], [place], [address], [place] [facility], P 09/14/2022 08:59:14 OBGyn Episode No OBEpisode recorded.
--- OUTSIDE RECORDS SUMMARY | 2024-10-19 08:17 | XMS_ITS | Clinical Summary ---
Author Organization [facility] Address [address] [place] [address] Phone Care Team Providers Care Parcel Post Clerk Name Role Phone Emily Desai MD Primary Care Provider Allergies Active Allergy Reactions Criticality Noted Date Comments Adhesive Rash High 12/15/2018 Adhesive Tape-Silicones Unknown 12/15/2018 Amoxicillin Rash,Hives High 01/16/2020 Medications celecoxib (CeleBREX) 200 mg capsule Take 1 Capsule by mouth. 06/26/2021 Active omeprazole (PriLOSEC) [address] capsule 12/30/2022 Activ e sertraline (ZOLOFT) 50 mg tablet Take 1 Tablet by mouth daily. 06/21/2023 Active triamcinolone (KENALOG) 0.025 % cream APPLY TO AFFECTED AREA TWICE DAILY FOR 10 DAYS Active Active Problems No known active problems Resolved Problems Problem Noted Date Diagnosed Date Resolved Date Intraductal papilloma of left breast 01/18/2024 02/16/2024 Encounters Date Type Department Care Team Description 08/22/2024 8:20 AM EDT Office Visit [facility] [address] [place] [address] Oxana Parham MD At high risk for breast cancer (Primary Dx); Family history of breast cancer in first degree relative from Last 3 Months Surgical History Surgery Date Site/Laterality Comments MENISCECTOMY left knww ANTERIOR CERVICAL DISCECTOMY W/ FUSION INCONTINENCE SURGERY BUNIONECTOMY COLONOSCOPY COSMETIC SURGERY TOTAL SHOULDER ARTHROPLASTY LIPECTOMY 02/07/2024 Panniculectomy EXCISION BREAST LESION W/ NM EOP NEEDLE LOC 02/16/2024 Left Left breast magnetic seed localized excision, nipple exploration, terminal duct excision. Medical History Medical History Date Comments GERD (gastroesophageal reflux disease) Depression Hiatal hernia Social History Tobacco Use Types Packs/Day Years Used Date Smoking Tobacco: Never Tobacco Cessation:Counseling Given: Not Answered Alcohol Use Standard Drinks/Week Comments Yes 0 (1 standard drink = 0.6 oz pur e alcohol) stopped january Interpersonal Safety Answer Date Record ed Physical Abuse 02/16/2024 Verbal Abuse 02/16/2024 Comments No Sex and Gender Information Value Date Recorded Sex Assigned at Female 02/16/2024 5:05 AM EST Legal Sex Female 1:38 PM EST Gender Identity Female 02/16/2024 5:05 AM EST Sexual Orientation Straight 02/16/2024 5: 05 AM EST Obstetrics History Last Filed Vital Signs Vital Sign Reading Time Taken Comments Blood Pressure 120/71 08/22/2024 8:20 AM EDT Pulse 73 08/22/2024 8:20 AM EDT Temperature 36.3 C (97.4 F) 08/22/2024 8:20 AM EDT Respiratory Rate 12 02/16/2024 10:00 AM EST Oxygen Saturation 98% 02/16/2024 10:15 AM EST Inhaled Oxygen Concentration - - Weight 64 kg (141 lb) 08/22/2024 8:20 AM EDT Height 152.4 cm (5') 01/19/2024 8:00 AM EDT Body Mass Index 27.54 01/19/2024 8:00 AM EDT Plan of Treatment Upcoming Encounters Date Type Department Care Team (Late st Contact Info) Description 11/30/2024 8:00 AM EDT [facility]oint[facility] [address] [phone] 03/01/2025 8:00 AM EST [facility] [address] [phone] Oxana Parham MD [address] [place] [id number] Health Maintenance Due Date Last Done Comments Hepatitis B Vaccines (1 of 3 - 19+ 3-dose series) 1991 Pneumococcal Vaccine: 50+ Years (1 of 2 - PCV) 1991 Cervical Cancer Screening: Pap Smear 1993 COVID-19 Vaccine (3 - Moderna risk series) 09/09/2020 08/12/2020, 07/15/2020 Colorectal Cancer Screening: Colonoscopy 02/24/2022 HIV Screening 02/24/2022 Hepatitis C Screening 02/24/2022 Social Influencers of Health Screening 02/24/2022 Depression Screening 03/29/2024 Influenza Vaccine (#1) 2024 02/09/2022, 2017 Breast Cancer Screening 11/25/2025 11/26/19 24, 11/12/2022, 07/21/2021, Additional history exists DTaP,Tdap,and Td Vaccines (2 - Td or Tdap) 01/14/2030 01/15/2020 Zoster Vaccines Completed 07/27/2023, 08/10/2022 HIB Vaccines Aged Out No longer eligi ble based on patient's age to complete this topic HPV Vaccines Aged Out No longer eligi ble based on patient's age to complete this topic Hepatitis A Vaccines Aged Out No long er eligible based on patient's age to complete this topic IPV Vaccines Aged Out No longer eligi ble based on patient's age to complete this topic MMR Vaccines Aged Out No longer eligi ble based on patient's age to complete this topic Meningococcal ACWY Vaccine Aged Out N o longer eligible based on patient's age to complete this topic Meningococcal B Vaccine Aged Out No l onger eligible based on patient's age to complete this topic RSV Immunization Patients Under 20 months Aged Out No longer eligible based on patient's age to complete this topic Varicella Vaccines Aged Out No longer eligible based on patient's age to complete this topic Medical Devices Implanted Type Area Job Lithographer Device Identifier Shelf Expiration Date Model / Serial / Lot Marker 18ga Magseed 7cm - [id number] - [id number] Implanted:Qty: 1 on 02/14/2024 by Lois Coates MD at [facility] Implants Left: Breast DEVICOR [employer] [id number] 11/26/2026 [id number] / [id number] / [id number] Procedures Procedure Name Priority Date/Time Associated Diagnosis Comments [facility] SCREENING DIGITAL Routine 11/26/2023 1:29 PM EDT Encounter for screening mammogram for malignant neoplasm of breast from Last 3 Months or Most Recently Relevant to Health Maintenance Results * [facility] SCREENING DIGITAL (11/26/2023 1:29 PM EDT) Anatomical Region Laterality Modality Mammography 11/24/2023 1:55 PM EDT Narrative 11/26/2023 1:29 PM EDT [facility] Diagnostic Imaging Department [address] [place] [address] Patient: ROQUE BLANKENSHIP /Age/Sex: 1970 - 53 - F Unit#: [id number] Location/Status: [facility] Mnemonic/Ordering Site: [facility] Ordering Physician: OXANA PARHAM MD [facility] Screening Digital - 11/24/23 - Report Status:Signed EXAM: [facility] Screening Digital EXAM DATE AND TIME: 11/24/2023 2:27 PM HISTORY: Annual screening. The patient has had bilateral breast biopsies. COMPARISON: 11/17/2022 through 02/13/2019 TECHNIQUE: Bilateral digital breast tomosynthesis was performed in the CC and MLO projections. Computer aided detection with MyEnergy 3D 3.1 was employed. TISSUE DENSITY: b. There are scattered areas of fibroglandular density. FINDINGS: No suspicious masses, grouped microcalcifications, or areas of architectural distortion are seen. The skin and vascularity are unremarkable. Bilateral biopsy site markers are in place. IMPRESSION: Stable mammographic appearance of the breasts. No evidence of malignancy is seen. A negative mammogram in the presence of a clinically suspicious palpable abnormality does not preclude the possibility of malignancy or alter the indications for biopsy. BI-RADS: Category 2: Benign RECOMMENDATION(S): 1: Routine screening mammogram BILATERAL in 1 year. Dictating Physician: MAICOL BRAMBILA MD Electronically Signed by: MAICOL BRAMBILA MD Dic Date/Time: 11/26/23 1320 Sign date/Time: 11/26/23 1329 Procedure Note Maicol Brambila MD - 01/12/2024 [facility] Diagnostic Imaging Department [address] [place], [place] [id number] Patient: ROQUE BLANKENSHIP /Age/Sex: 1970 - 53 - F Unit#: [id number] Location/Status: [facility] Mnemonic/Ordering Site: [facility] Ordering Physician: OXANA PARHAM MD [facility] Screening Digital - 11/24/23 - Report Status:Signed EXAM: [facility] Screening Digital EXAM DATE AND TIME: 11/24/2023 2:27 PM HISTORY: Annual screening. The patient has had bilateral breastbiopsies. COMPARISON: 11/17/2022 through 02/13/2019 TECHNIQUE: Bilateral digital breast tomosynthesis was performed in the CCand MLO projections. Computer aided detection with Inkd.com[employer]ic Glacial 3D 3.1was employed. TISSUE DENSITY: b. There are scattered areas of fibroglandular density. FINDINGS: No suspicious masses, grouped microcalcifications, or areas ofarchitectural distortion are seen. The skin and vascularity are unremarkable.Bilateral biopsy site markers are in place. IMPRESSION: Stable mammographic appearance of the breasts. No evidence of malignancyis seen. A negative mammogram in the presence of a clinically suspicious palpable abnormality does not preclude the possibility of malignancy or alter the indications for biopsy. BI-RADS: Category 2: Benign RECOMMENDATION(S): 1: Routine screening mammogram BILATERAL in 1 year. Dictating Physician: MAICOL BRAMBILA MD Electronically Signed by: MAICOL BRAMBILA MD Dic Date/Time: 11/26/23 1320 Sign date/Time: 11/26/23 1329 Oxana Parham MD IMG BI PROCEDURES Final Result from Last 3 Months or Most Recently Relevant to Health Maintenance Insurance [facility] Advance Directives * Full Code - Default (Latest Code Status on File) Date Activated Date Inactivated Comments 02/16/2024 6:18 AM 02/16/2024 1:55 PM This is or patrick is used when code status has not been discussed with the patient, or code status is otherwise unknown/unconfirmed To update the patient's code status, place a code status order. Do not modify or discontinue any currently active code status orders. Care Teams Parcel Post Clerk Relationship Specialty Start Date End Date Emily Desai MD PCP - General Internal Medicine 02/10/24
--- OUTSIDE RECORDS SUMMARY | 2024-10-19 08:17 | XMS_ITS | Clinical Summary ---
Author Organization [facility] Address [address] [place] [address] Care Team Providers Care Co Founder And Ceo Name Role Phone José Luis Pepe MD Primary Care Provider [phone] Allergies Active Allergy Reactions Criticality Noted Date [...] (1 of 2) 2022 Influenza Vaccine (#1) 2024 Pneumococcal Vaccine Aged Out No long er eligible based on patient's age to complete this topic RSV Ped < 20 months Aged Out No longe r eligible based on patient's age to complete this topic Care Teams Co Founder And Ceo Relationship Specialty Start Date End Date José Luis Pepe MD [address] [facility] [address] [place] [address] PCP - General Internal Medicine 12/15/18
[2024-10-19 08:35] VITALS: BP 118/72; PULSE 76; TEMP 37.1; O2SAT 98; BMI 24.6
--- NOTE | 2024-10-19 08:35 | MHC.OFFWIV ---
Intake Vital Signs 10/19/24 08:35 Height 5 ft 2 in Weight 134 lb 4 oz BMI 24.6 BP 118/72 Blood Pressure Location Lt brachial Position Sitting Pulse 76 Pulse Source Pulse Oximeter Temp 98.8 F Temp Source Oral Pulse Oximetry (%) 98 Oxygen Delivery Method Room Air Intake Visit Reasons: EP lower back pain radiating to the foot Patient Tobacco Use Status: Never used Tobacco Application Support Required: No Is last menstrual period known: No Post menopausal: No Patient : No Allergies TAPE,PLASTIC Allergy (Intermediate, Uncoded 07/20/24 09:38) rash/itching Do you need a note to return to daycare/school/sports/work: No HPI HPI Comments History of Present Illness Details History - The patient is a 54-year-old female presenting with bilateral back pain which radiates down her buttocks and right leg. - She has a history of degenerative disc disease, with worsening pain over the past few months. - The pain radiates to her right knee, and affects her sleep. - Previous treatments included pain management and injections, with limited success. - She also has plantar fasciitis and has been using naproxen without relief. Physical Exam General: Cooperative, healthy appearing, comfortable, no acute distress and well developed Orientation: Patient oriented x3 Limitations: No limitations Head: Normal to inspection Ears: Hearing grossly normal bilaterally Nose: Normal External nose present Face and sinus: Normal facial exam Mouth: normal, moist oral mucosa Eyes: Appearance normal, both eyes and all related structures Neck: Normal visual inspection and Yes full ROM Respiratory: Normal respiratory effort and able to speak in complete sentences. Skin: no rashes or lesions noted Neuro: Patient oriented x3 Extremities: moving all extremities normally, + straight leg right leg PFSH Medical History Nausea and vomiting History of adenomatous polyp of colon Hip pain, right Pompholyx dermatitis Lumbar back pain with radiculopathy affecting lower extremity Dyslipidemia Vitamin D deficiency Polyarthralgia History of cystocele External hemorrhoids Tear of meniscus of left knee HX: benign breast biopsy Anxiety and depression Surgical History Hx of abdominoplasty History of lumpectomy of left breast H/O colonoscopy Hx of LASIK H/O arthroscopy of shoulder Hx of cervical discectomy Family History Sister Breast cancer, Onset Age: 38 Mother Breast cancer Father Esophageal cancer Maternal Uncle Colon cancer Social History Housing: House Patient Tobacco Use Status: Never used Tobacco e-Cigarette/Vaping Use: Never Used Patient : No service: No Current occupational status: employed Cognitive needs: No Hearing needs: No Vision needs: Yes Review of Systems Const All systems reviewed & are unremarkable except as noted in HPI and below Physical Exam Vital Signs: Last Vital Signs Temp 98.8 F 10/19/24 08:35 Pulse 76 10/19/24 08:35 BP 118/72 10/19/24 08:35 Pulse Ox 98 10/19/24 08:35 Oxygen Delivery Method Room Air 10/19/24 08:35 BMI result Body Mass Index 24.6 Assessment & Plan Assessment & Plan (1) Bilateral low back pain with right-sided sciatica: Code(s): M54.41 - Lumbago with sciatica, right side Qualifiers: Chronicity: acute Qualified Code(s): M54.41 - Lumbago with sciatica, right side Plan: Plan Patient was informed and verbally consented to the use of an ambient scribe for clinic note documentation during this visit Sciatica - Prescribe prednisone 50 mg daily for five days to reduce inflammation and alleviate symptoms. - Do not take NSAIDs while taking prednisone - you can use ice on the low back as well, gentle stretching, you can visit the [facility] website for sciatica stretches once you are feeling a little better. - if no resolution in your pain, please return to the clinic or follow up with your PCP. - if any bladder or bowel dysfunction occurs, please go to the emergency department. Medications: New prednisone 50 mg PO QAM 5 tabs 0RF Coding Level of Care Code Est Pt Level 3 (09263) Diagnoses Acute bilateral low back pain with right-sided sciatica M54.41 Chronicity: acute
== END 2024-10-19 09:17 | disposition home or self-care (01) ==
PROVIDERS: PCP Internal Medicine; Visit Provider Physician Assistant
DX: M54.41 Lumbago with sciatica, right side (principal)

== ENCOUNTER 2024-12-21 12:40 | Outpatient (AMB) | payer OTHER, SELFPAY ==
--- NOTE | 2024-12-21 12:49 | A.SPINEOV_ITS ---
Vital Signs 12/21/24 12:55 Height 5 ft 2 in Weight 134 lb BMI 24.5 Intake Visit Reasons: LBP & R leg pain Intake Note: Ms. Blankenship is here today c/o right leg pain and Low back pain. Vp Project Required: No Allergies TAPE,PLASTIC Allergy (Intermediate, Uncoded 07/20/24 09:38) rash/itching Physical Exam Vital Signs: BMI result Body Mass Index 24.5 Assessment & Plan Assessment & Plan (1) Lumbar back pain with radiculopathy affecting lower extremity: Code(s): M54.16 - Radiculopathy, lumbar region Category: Medical Plan 54-year-old female self-referred, presents today for evaluation of 3 months of low back pain radiating down into her right low back, right buttock going into her anterior thigh into her knee. Occasionally the pain will go past her knee as well. She has had issues on and off for the back for many years. She can not recall at time though when it was this intense. Particularly at night or when she is sitting it can become so uncomfortable she is rolling [id number] in agony. It is also present during the day when she is up moving around, but she is distracted to some degree so she thinks it is just a bit more tolerable. She takes ibuprofen and Tylenol and an occasional Percocet. No cauda equina symptoms. She has been through physical therapy and injections in the past, many years ago. Nothing recent. She has been doing the stretching exercises however. 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 She comes in today for evaluation of possible herniated disc in her low back. PMH: She is otherwise healthy with no major systemic disease, she did have a precancerous colon mass removed via colonoscopy, as well as precancerous lesion in her breast removed. She has had bunionectomies, right shoulder bone spur removal, meniscus repair, ACDF C5-6 as well as a tummy tuck and liposuction. She had a bladder sling surgery x2. Social hx: She has not smoke, social alcohol use her, no routine recreational drug use Medications: She does not report taking any other medications outside of the ones listed above for pain control. Allergies: No medication allergies Physical exam: Awake alert oriented no acute distress, strength and reflexes normal. Positive straight leg raise at 30 degrees. She has some mild discomfort with internal and external rotation Imaging review: No imaging to review, outside of a remote lumbar MRI done at [facility] in 2021 showing degenerative disc disease at multiple levels. Impression: 54-year-old female presents with 3 months of gradually escalating low back pain on the right side radiating down into her buttock, into her anterior thigh toward her knee. The pain has become excruciating at night, bit more manageable during the day. She has been taking an occasional Percocet, Tylenol and ibuprofen. She has been resting, avoiding stressors as best she can but her job is very physical as outlined above. I am going to order a lumbar MRI for her and evaluate for herniated disc since the pain has become so intense she can not sleep. I did warn her that her insurance company may require physical therapy before we can get the MRI. She understands, and if it is denied it will place an order for that. I will follow up with her after the MRIs completed. Thank you for allowing us to care for your patient. The total time spent with this visit with this patient was 45 minutes reviewing history, physical exam, previous lumbar imaging review, and implementation of treatment plan or further diagnostic testing Juan Alberto Landrum MD,PhD [facility] Orders: Orders MR lumbar spine wo con Today M54.16 - Radiculopathy, lumbar region Coding Level of Care Code New Pt Level 4 (40426) Diagnoses Lumbar back pain with radiculopathy affecting lower extremity M54.16
[2024-12-21 12:55] VITALS: BMI 24.5
--- OUTSIDE RECORDS SUMMARY | 2024-12-21 17:28 | XMS_ITS | Clinical Summary ---
Author Organization [facility] Address [address] [place] [address] Care Team Providers Care Repair Service Dispatcher Name Role Phone José Luis Pepe MD Primary Care Provider [phone]- [phone] Allergies Active Allergy Reactions Criticality Noted Date [...] age to complete this topic Care Teams Repair Service Dispatcher Relationship Specialty Start Date End Date José Luis Pepe MD [address] [facility] [address] [place] [address] PCP - General Internal Medicine 12/15/18
== END 2024-12-21 13:34 | disposition home or self-care (01) ==
LOC: HO.HNS 12:41
PROVIDERS: PCP Internal Medicine; Visit Provider Physician Assistant
DX: M54.16 Radiculopathy, lumbar region (principal)
CPT/HCPCS: 99204

== ENCOUNTER 2024-12-26 08:25 | Outpatient (AMB) | payer OTHER, SELFPAY ==
--- NOTE | 2024-12-26 08:26 | MHC.PC.OV ---
Vital Signs 12/26/24 08:59 Height 5 ft 2 in Weight 135 lb BMI 24.7 BP 110/78 Blood Pressure Location Lt brachial Position Sitting Respiration 18 Pulse 89 Pulse Source Pulse Oximeter Temp 98.4 F Temp Source Oral Pulse Oximetry (%) 96 Oxygen Delivery Method Room Air Intake Visit Reasons: PE Intake Note: Pt is here today for PE. Pt states that she had a mammogram couple weeks ago at [place]. Allergies TAPE,PLASTIC Allergy (Intermediate, Uncoded 12/31/24 19:58) rash/itching Medication List - Last Reconciled 12/31/24 by Emily Desai MD loratadine (Claritin) 10 mg PO DAILY omeprazole 40 mg PO DAILY ondansetron HCl 4 mg PO BID-TID PRN 14 days sertraline (Zoloft) 50 mg PO DAILY triamcinolone acetonide 0.025% 1 appl topical BID 10 days wheat dextrin (Benefiber Healthy Shape) grams PO Tobacco use date assessed: 12/26/24 Dental Screening Dental Screen Date: 12/26/24 Did you have a dental visit in the last 12 months?: Yes Did you have a dental problem in the last 6 months where you did not have access to dental care?: No Was dental information given to patient?: Patient has dentist HPI PE HPI Details The patient is a 54-year-old female presenting today for her physical exam. The patient has a history of ductal hyperplasia, identified through biopsy following an ultrasound and mammogram screening. Her sister from breast cancer, and her mother also had breast cancer, prompting regular screenings every six months. The patient has a history of tubular adenoma, discovered during a colonoscopy five years ago, which necessitates follow-up colonoscopies every five years. She has an uncle who was diagnosed with colon cancer. She has degenerative disc disease, with MRI findings showing multiple areas affected in the lower spine. She experiences significant pain down her leg, particularly at night, which affects her sleep. The pain is exacerbated by her physically demanding job and activities at home, such as dog grooming and gardening. The patient is experiencing menopausal symptoms, including hot flashes, and has an IUD in place, and has been having irregular menses She has allergic rhinitis, take loratadine as needed. The patient has gastroesophageal reflux disease, takes omeprazole as needed. She has depression, stable and controlled with sertraline, and she does not currently see a therapist. The patient has received vaccinations for shingles and pertussis but has declined further COVID-19 boosters. [facility] Medical History Nausea and vomiting History of adenomatous polyp of colon Hip pain, right Pompholyx dermatitis Lumbar back pain with radiculopathy affecting lower extremity Dyslipidemia Vitamin D deficiency Polyarthralgia History of cystocele External hemorrhoids Tear of meniscus of left knee HX: benign breast biopsy Anxiety and depression Surgical History Hx of abdominoplasty History of lumpectomy of left breast H/O colonoscopy Hx of LASIK H/O arthroscopy of shoulder Hx of cervical discectomy Family History Sister Breast cancer, Onset Age: 38 Mother Breast cancer Father Esophageal cancer Maternal Uncle Colon cancer Social History Housing: House Patient Tobacco Use Status: Never used Tobacco e-Cigarette/Vaping Use: Never Used service: No Current occupational status: employed Cognitive needs: No Hearing needs: No Vision needs: Yes Questionnaire PHQ-9 Over the last 2 weeks, how often have you been bothered by any of the following problems? 1. Little interest or pleasure in doing things: not at all 2. Feeling down, depressed, or hopeless: not at all 3. Trouble falling or staying asleep, or sleeping too much: several days 4. Feeling tired or having little energy: several days 5. Poor appetite or overeating: not at all 6. Feeling bad about yourself - or that you are a failure or have let yourself or your family down: not at all 7. Trouble concentrating on things, such as reading the newspaper or watching television: several days 8. Moving or speaking so slowly that other people could have noticed. Or the opposite - being so fidgety or restless that you have been moving around a lot more than usual: more than half the days 9. Thoughts that you would be better off or of hurting yourself in some way: not at all Total score: 5 Depression Screening Interpretation: Positive (Controlled on sertraline, currently not being seen by therapist) Depression Screening Follow-up: Existing condition and In treatment Depression Screening Done: Yes 22128 - PHQ-9 Billing: Yes Source: Developed by Drs. Chidi Carbone, Olimpia Booth, Williams Luo and colleagues, with an educational dawn from [employer]. Thrive Questionnaire Date Thrive assessed: 12/26/24 I am a: Patient What is your living situation today?: I have a steady place to live Within the past 12 months, did the food you bought not last and you didn't have the money to get more?: Never true Within the past 12 months, did you worry whether your food would run out before you got money to buy more?: Never true Do you have trouble paying for medicines?: No Do you have trouble getting transportation to medical appointments?: No Do you have trouble paying your heating and electricity bill?: No Do you have trouble taking care of your child, family member or friend?: No Do you have trouble with day-to-day activities such as bathing, preparing meals, shopping, managing finances, etc.?: No Are you currently unemployed and looking for a job?: No Are you interested in more education?: No Please select the resources that you would like help with: None Currently or been in a relationship where the following occur: No concerns reported THRIVE Score: 0 AUDIT C Alcohol Use Questionnaire (AUDIT-C) 1. How often do you have a drink containing alcohol?: 4 or more times a week 2. How many drinks containing alcohol do you have on a typical day when you are drinking?: 3 or 4 3. How often do you have six or more drinks on one occasion?: Never Total Score: 5 Score Reviewed/Action Taken: Yes MIGUEL ÁNGEL-7 AMB Questionnaire MIGUEL ÁNGEL-7 Date MIGUEL ÁNGEL - 7 assessed: 12/26/24 Feeling nervous, anxious, or on edge: 1 = Several days Not being able to stop or control worryin = Not at all Worrying too much about different things: 0 = Not at all Trouble relaxin = More than half the days Being so restless that it is hard to sit still: 1 = Several days Becoming easily annoyed or irritable: 2 = More than half the days Feeling afraid as if something awful might happen: 0 = Not at all Total MIGUEL ÁNGEL-7 score (0-4 normal; 5-9 mild; 10-14 moderate; 15-21 severe): 6 Source: Developed by Drs. Chidi Carbone, Olimpia Booth, Williams Luo and colleagues, with an educational dawn from [employer]. MIGUEL ÁNGEL-7 Assessment Billing MIGUEL ÁNGEL-7 Assessment Tool: MIGUEL ÁNGEL-7 Assessment 38744 Review of Systems Const Reports no additional complaints Eyes Details: , goes to [facility], has a little bit of astigmatism ENT Reports no additional complaints and Reports Normal hearing present Card Reports no additional complaints and Denies dyspnea Resp Denies cough, Denies dyspnea and Denies wheezing GI Reports no additional complaints, Reports dyspepsia and Reports heartburn (Controlled on omeprazole) Details: She sees Dr. Lopez for routine Pap and pelvic exam, currently up-to-date with her screening Musc Reports as per HPI Skin/Breast Details: Had routine skin exam done at [facility] at [place] Neuro Reports no additional complaints, Reports Normal hearing present and Denies Abnormal speech present Psych Reports no additional complaints Endo Reports no additional complaints Ruddy/Lymph Reports no additional complaints Aller/Immun Reports seasonal rhinorrhea and Denies wheezing Physical exam (Primary Care) Vital Signs: Last Vital Signs Temp 98.4 F 12/26/24 08:59 Pulse 89 12/26/24 08:59 Resp 18 12/26/24 08:59 BP 110/78 12/26/24 08:59 Pulse Ox 96 12/26/24 08:59 Oxygen Delivery Method Room Air 12/26/24 08:59 BMI result Body Mass Index 24.7 Tobacco/Smoking Status: Tobacco use Status Tobacco use date assessed 12/26/24 12/26/24 09:03 Patient Tobacco Use Status Never used Tobacco 12/26/24 08:27 e-Cigarette/Vaping Use Never Used 12/26/24 08:27 PHQ-9: PHQ-9 Score PHQ-9: Total score 5 12/26/24 09:45 Depression Screening Interpretation: Positive (Controlled on sertraline, currently not being seen by therapist) Depression Screening Follow-up: Existing condition and In treatment Thrive Assessment: Date of Thrive Assessment Date Thrive assessed 12/26/24 12/26/24 09:03 Currently or been in a relationship where the following occur: No concerns reported Const Other: Alert oriented x3, no acute distress noted, ambulatory normal gait HENMT Head: Yes normocephalic Ears: TM's normal bilaterally and EAC's normal General nose exam: Normal external nose present Face and sinus: Yes face symmetric Mouth: Normal oral and palatal mucosa present Teeth and gingiva: dentition normal Eyes General: appearance normal, both eyes and all related structures Alignment and Position: alignment normal Periorbital: periorbital findings normal Eyelids: Yes eyelids normal Conjunctivae: conjunctivae normal Sclerae: sclerae normal Pupils: Equal, round and reactive pupils present EOM: EOMs intact bilaterally Neck Neck: Yes full ROM, Yes no lymphadenopathy and Yes supple Thyroid: Thyroid normal (Nonpalpable) Chest Chest palpation & inspection: normal inspection of the chest Breast/axilla palpation: normal palpation of the breasts Resp Effort & Inspection: normal respiratory effort and able to speak in complete sentences Auscultation: clear to auscultation bilaterally Cardio Other: S1-S2 present regular rate and rhythm Bruits: no abdominal aortic bruits GI Palpation (GI): No Abdominal aortic bruit present, Soft to palpation, nontender and no masses Auscultation: normal bowel sounds General: Yes deferred (Currently sees OBGYN- Dr. Lopez) Back/Spine/Pelvis Thoracic/Lumbar Spine: straight leg raise negative bilaterally, bend over test abnormal and pain with thoraco-lumbar ROM Skin Rashes: no rashes Neuro General: gait normal, moves all extremities, Normal light touch and pain sensation, no focal motor deficits and CN's II-XI intact bilaterally Cranial nerves: Yes Equal, round and reactive pupils present and Yes Normal hearing present Speech: No Abnormal speech present Gait exam (Neuro): Normal gait present Motor exam (neuro): 5/5 motor strength present throughout Extrem General: Yes full ROM, Yes no joint enlargement, Yes no pedal edema, Yes no calf tenderness and Yes normal gait Psych Appearance: grossly normal and well kempt Mental Status: mental status grossly normal Speech and movement: Normal speech and movement present Affect: normal affect Coding Level of Care Code Est Pt Prev Care 40-64y(19189) Diagnoses Annual visit for general adult medical examination with abnormal findings Z00.01 Anxiety and depression F41.9; F32.A Dyslipidemia E78.5 Lumbar back pain with radiculopathy affecting lower extremity M54.16 GERD (gastroesophageal reflux disease) K21.9 History of adenomatous polyp of colon Z86.0101 Additional Codes MIGUEL ÁNGEL-7 Assessment Billing - MIGUEL ÁNGEL-7 Assessment Tool: MIGUEL ÁNGEL-7 Assessment [id number] ([id number]) PHQ-9 - 35915 - PHQ-9 Billing: Yes ([id number]) Assessment & Plan Assessment & Plan (1) Annual visit for general adult medical examination with abnormal findings: Code(s): Z00.01 - Encounter for general adult medical examination with abnormal findings Plan: Will check appropriate labs. Recommended dental visit every 6 months and regular eye exams, at least every 2 years. Take adequate calcium in diet and vitamin-D 3 at 2000 IU per cap once a day, in addition to weight-bearing exercises to help maintain good muscle tone and weight control. She gets surveillance mammogram every six-months due to positive family history of breast cancer, currently being followed at [facility], goes to Dr. Lopez for her routine Pap and pelvic exam. Advised to get yearly flu vaccine declines getting further COVID boosters, up-to-date with her shingles vaccine and Tdap. She is due for a repeat colonoscopy screening in 2025 (2) Anxiety and depression: Code(s): F41.9 - Anxiety disorder, unspecified; F32.A - Depression, unspecified Category: Medical Plan: Continued on sertraline 50 mg daily (3) Dyslipidemia: Code(s): E78.5 - Hyperlipidemia, unspecified Category: Medical Plan: Fasting lipid panel and liver enzymes ordered. Continued adherence to low-cholesterol diet and regular exercise, at least 30 minutes 3 to 4 times a week. Advised patient to make healthy food choices, eat more fruits, vegetables, whole grains, wild caught fish and low-fat dairy. Limit amount of meat and fried or fatty food products, as well as processed foods and fast foods. (4) Lumbar back pain with radiculopathy affecting lower extremity: Code(s): M54.16 - Radiculopathy, lumbar region Category: Medical Plan: Takes Tylenol as needed (5) GERD (gastroesophageal reflux disease): Code(s): K21.9 - Gastro-esophageal reflux disease without esophagitis Category: Medical Plan: Takes omeprazole 40 mg daily (6) History of adenomatous polyp of colon: Code(s): Z86.0101 - Personal history of adenomatous and serrated colon polyps Plan: Due for repeat colonoscopy screening in 2025 Orders: Orders Lipid Panel 12/26/24 E55.9 - Vitamin D deficiency, unspecified, E78.5 - Hyperlipidemia, unspecified, F32.A - Depression, unspecified, F41.9 - Anxiety disorder, unspecified, K21.9 - Gastro-esophageal reflux disease without esophagitis, K64.4 - Residual hemorrhoidal skin tags, M54.16 - Radiculopathy, lumbar region, Z00.01 - Encounter for general adult medical examination with abnormal findings, Z86.0101 - Personal history of adenomatous and serrated colon polyps Hemoglobin and Hematocrit 12/26/24 E55.9 - Vitamin D deficiency, unspecified, E78.5 - Hyperlipidemia, unspecified, F32.A - Depression, unspecified, F41.9 - Anxiety disorder, unspecified, K21.9 - Gastro-esophageal reflux disease without esophagitis, K64.4 - Residual hemorrhoidal skin tags, M54.16 - Radiculopathy, lumbar region, Z00.01 - Encounter for general adult medical examination with abnormal findings, Z86.0101 - Personal history of adenomatous and serrated colon polyps Alanine Aminotransferase 12/26/24 E55.9 - Vitamin D deficiency, unspecified, E78.5 - Hyperlipidemia, unspecified, F32.A - Depression, unspecified, F41.9 - Anxiety disorder, unspecified, K21.9 - Gastro-esophageal reflux disease without esophagitis, K64.4 - Residual hemorrhoidal skin tags, M54.16 - Radiculopathy, lumbar region, Z00.01 - Encounter for general adult medical examination with abnormal findings, Z86.0101 - Personal history of adenomatous and serrated colon polyps Basic Metabolic Panel Fasting 12/26/24 E55.9 - Vitamin D deficiency, unspecified, E78.5 - Hyperlipidemia, unspecified, F32.A - Depression, unspecified, F41.9 - Anxiety disorder, unspecified, K21.9 - Gastro-esophageal reflux disease without esophagitis, K64.4 - Residual hemorrhoidal skin tags, M54.16 - Radiculopathy, lumbar region, Z00.01 - Encounter for general adult medical examination with abnormal findings, Z86.0101 - Personal history of adenomatous and serrated colon polyps Vitamin D 25-OH Total 12/26/24 E55.9 - Vitamin D deficiency, unspecified, E78.5 - Hyperlipidemia, unspecified, F32.A - Depression, unspecified, F41.9 - Anxiety disorder, unspecified, K21.9 - Gastro-esophageal reflux disease without esophagitis, K64.4 - Residual hemorrhoidal skin tags, M54.16 - Radiculopathy, lumbar region, Z00.01 - Encounter for general adult medical examination with abnormal findings, Z86.0101 - Personal history of adenomatous and serrated colon polyps Aspartate Amino Transferase 12/26/24 E55.9 - Vitamin D deficiency, unspecified, E78.5 - Hyperlipidemia, unspecified, F32.A - Depression, unspecified, F41.9 - Anxiety disorder, unspecified, K21.9 - Gastro-esophageal reflux disease without esophagitis, K64.4 - Residual hemorrhoidal skin tags, M54.16 - Radiculopathy, lumbar region, Z00.01 - Encounter for general adult medical examination with abnormal findings, Z86.0101 - Personal history of adenomatous and serrated colon polyps Medications: Refilled sertraline (Zoloft) 50 mg PO DAILY 90 tabs 1RF
--- OUTSIDE RECORDS SUMMARY | 2024-12-26 08:45 | XMS_ITS | Clinical Summary ---
Author Organization [facility] Address [address] [place] [address] Phone Care Team Providers Care Project Admin Name Role Phone Emily Desai MD Primary [...] Encounters Date Type Department Care Team Description 11/30/2024 7:34 AM EDT - 11/30/2024 11:59 PM EDT [facility] [address] [address] Encounter for screening mammogram for breast cancer Discharge Disposition: Home or Self Care from Last 3 Months Surgical History Surgery Date Site/Laterality Comments MENISCECTOMY left knww ANTERIOR CERVICAL DISCECTOMY W/ FUSION INCONTINENCE SURGERY BUNIONECTOMY COLONOSCOPY COSMETIC SURGERY TOTAL SHOULDER ARTHROPLASTY LIPECTOMY 02/07/2024 Panniculectomy EXCISION BREAST LESION W/ AL EOP NEEDLE LOC 02/16/2024 Left Left breast magnetic seed localized excision, nipple exploration, terminal duct excision. BREAST LUMPECTOMY STEREOTACTIC CORE BIOPSY Medical History Medical History Date Comments GERD (gastroesophageal reflux disease) Depression Hiatal hernia BRCA1 gene mutation negative BRCA2 gene mutation negative Family History Medical History Relation Name Comments Breast cancer Mother Breast cancer Sister Relation Name Status Comments Mother Sister Social History Tobacco Use Types Packs/Day Years Used Date Smoking Tobacco: Never Tobacco Cessation:Counseling Given: Not Answered Alcohol Use Standard Drinks/Week Comments Yes 0 (1 standard drink = 0.6 oz pur e alcohol) stopped january Interpersonal Safety Answer Date Record ed Physical Abuse Unrecognized value 02/16/2024 Verbal Abuse Unrecognized value 02/16/2024 Comments No Sex and Gender Information Value Date Recorded Sex Assigned at Female 02/16/2024 5:05 AM EST Legal Sex Female 1:38 PM EST Gender Identity Female 02/16/2024 5:05 AM EST Sexual Orientation Straight 02/16/2024 5: 05 AM EST Obstetrics History Para Term AB IAB SAB Ectopic Multiple Livin g Live Births 1 Last Filed Vital Signs Vital Sign Reading Time Taken Comments Blood Pressure 120/71 08/22/2024 8:20 AM EDT Pulse 73 08/22/2024 8:20 AM EDT Temperature 36.3 C (97.4 F) 08/22/2024 8:20 AM EDT Respiratory Rate 12 02/16/2024 10:00 AM EST Oxygen Saturation 98% 02/16/2024 10:15 AM EST Inhaled Oxygen Concentration - - Weight 61.2 kg (135 lb) 11/30/2024 7:52 AM EDT Height 152.4 cm (5') 11/30/2024 7:52 AM EDT Body Mass Index 26.37 11/30/2024 7:52 AM EDT Plan of Treatment Upcoming Encounters Date Type Department Care Team (Late st Contact Info) Description 03/01/2025 8:00 AM EST Office Visit [facility] [address] [address] Alysia Parham MD [address] [place] [address] Health Maintenance Due Date Last Done Comments Colorectal Cancer Screening: Colonoscopy 1972 Hepatitis B Vaccines (1 of 3 - 19+ 3-dose series) 1991 Pneumococcal Vaccine: 50+ Years (1 of 2 - PCV) 1991 Cervical Cancer Screening: Pap Smear 1993 COVID-19 Vaccine (3 - Moderna risk series) 09/09/2020 08/12/2020, 07/15/2020 HIV Screening 02/24/2022 Hepatitis C Screening 02/24/2022 Social Influencers of Health Screening 02/24/2022 Depression Screening 03/29/2024 Influenza Vaccine (#1) 2024 02/09/2022, 2017 Breast Cancer Screening 11/30/2026 12/01/19, 11/26/2023, 11/12/2022, Additional history exists DTaP,Tdap,and Td Vaccines (2 - Td or Tdap) 01/14/2030 01/15/2020 RSV Immunization Adult Patients (1 - 1-dose 75+ series) 2047 Zoster Vaccines Completed 07/27/2023, 08/10/2022 HIB Vaccines [...] this topic Medical Devices Implanted Type Area Clamper Device Identifier Shelf Expiration Date Model / Serial / Lot Marker 18ga Magseed 7cm - [id number] - [id number] Implanted:Qty: 1 on 02/14/2024 by Lois Coates MD at [facility] Imaging Implants Left: Breast DEVICOR Native [id number] 11/26/2026 [id number] / [id number] Procedures Procedure Name Priority Date/Time Associated Diagnosis Comments MG MAMMO DIGITAL SCREENING W ARIS BILAT Routine 11/30/2024 7:57 AM EDT Encounter for screening mammogram for breast cancer from Last 3 Months Results * MG Mammo Digital Screening w Aris bilat (11/30/2024 7:57 AM EDT) Anatomical Region Laterality Modality Breast Bilateral Mammography 11/30/2024 10:0 6 AM EDT Impressions 11/30/2024 10:24 AM EDT No mammographic evidence of malignancy. No suspicious interval change. The patient is scheduled to undergo high risk screening MRI February 2025 ASSESSMENT: BI-RADS 2: BENIGN RECOMMENDATION(S): 1: Routine screening mammogram BILATERAL in 1 year. Recommendation annual high risk screening MRI [facility] [address], [address] -------- FINAL REPORT -------- Dictated By: Nain Roa Dictated Date: 11/30/2024 10:06 ET Assigned Physician: Nain Roa Reviewed and Electronically Signed By: Nain Roa Signed Date: 11/30/2024 10:24 ET Workstation ID: [id number] Transcribed By: Self Edit Transcribed Date: 11/30/2024 10:06 ET Narrative 11/30/2024 10:24 AM EDT EXAM: SCREENING MAMMOGRAPHY, BILATERAL HISTORY: SCREENING. Family history of breast cancer; mother diagnosed age 64, sister diagnosed age 38. Previous reports indicate history of papilloma and excisional left breast biopsy with duct exploration. COMPARISON: 11/24/23, 11/12/22, 07/21/21, 07/18/20 TECHNIQUE: Synthesized CC and MLO projections of each breast. Tomosynthesis of each breast in the CC and MLO projections. ADDITIONAL IMAGING: None Computer-aided detection was employed with the iCAD ProFound AI 3-D. TISSUE DENSITY: There are scattered areas of fibroglandular density. (BI-RADS category B) FINDINGS: RIGHT BREAST: There are several punctate calcifications in the 9 o'clock position 7 cm from the right nipple. No significant change. There is duct ectasia. There are biopsy site markers. No additional suspicious right breast findings LEFT BREAST: The architecture is consistent with prior surgery. There is a biopsy site marker present. No additional suspicious left breast findings Procedure Note Nain Roa MD - 11/30/2024 EXAM: SCREENING MAMMOGRAPHY, BILATERAL HISTORY: SCREENING. Family history of breast cancer; mother diagnosedage 64, sister diagnosed age 38. Previous reports indicate history of papilloma and excisional left breastbiopsy with duct exploration. COMPARISON: 11/24/23, 11/12/22, 07/21/21, 07/18/20 TECHNIQUE: Synthesized CC and MLO projections of each breast.Tomosynthesis of each breast in the CC and MLO projections. ADDITIONAL IMAGING: None Computer-aided detection was employed with the iCAD ProFound AI 3-D. TISSUE DENSITY: There are scattered areas of fibroglandular density.(BI-RADS category B) FINDINGS: RIGHT BREAST: There are several punctate calcifications in the 9 o'clock position 7 cmfrom the right nipple. No significant change. There is duct ectasia. There are biopsy site markers. No additionalsuspicious right breast findings LEFT BREAST: The architecture is consistent with prior surgery. There is a biopsy sitemarker present. No additional suspicious left breast findings IMPRESSION: No mammographic evidence of malignancy. No suspicious interval change. The patient is scheduled to undergo high risk screening MRI February 2025 ASSESSMENT: BI-RADS 2: BENIGN RECOMMENDATION(S): 1: Routine screening mammogram BILATERAL in 1 year. Recommendation annual high risk screening MRI [facility] [address], [address] -------- FINAL REPORT -------- Dictated By: Nain Roa Dictated Date: 11/30/2024 10:06 ET Assigned Physician: Nain Roa Reviewed and Electronically Signed By: Nain Roa Signed Date: 11/30/2024 10:24 ET Workstation ID: [id number] Transcribed By: Self Edit Transcribed Date: 11/30/2024 10:06 ET us Self Referral Sppl IMG BI PROCEDURES Final Resul t from Last 3 Months Insurance [employer] Advance Directives * Full Code - Default [...] currently active code status orders. Care Teams Project Admin Relationship Specialty Start Date End Date Emily Desai MD PCP - General Internal Medicine 02/10/24
--- OUTSIDE RECORDS SUMMARY | 2024-12-26 08:45 | XMS_ITS | Clinical Summary ---
Author Organization [facility] Address [address] [place] [address] Care Team Providers Care Order Selector Name Role Phone José Luis Pepe MD Primary Care Provider [phone]- [phone] Allergies Active Allergy Reactions Criticality Noted Date [...] age to complete this topic Care Teams Order Selector Relationship Specialty Start Date End Date José Luis Pepe MD [address] [facility] [address] [place] [address] PCP - General Internal Medicine 12/15/18
[2024-12-26 08:59] VITALS: BP 110/78; PULSE 89; RESP 18; TEMP 36.9; O2SAT 96; BMI 24.7
== END 2024-12-26 10:32 | disposition home or self-care (01) ==
PROVIDERS: PCP Internal Medicine; Visit Provider Internal Medicine
DX: Z00.01 Encounter for general adult medical examination with abnormal findings (principal); F41.9 Anxiety disorder, unspecified; F32.A Depression, unspecified; E78.5 Hyperlipidemia, unspecified; M54.16 Radiculopathy, lumbar region; K21.9 Gastro-esophageal reflux disease without esophagitis; Z86.0101 Personal history of adenomatous and serrated colon polyps

== ENCOUNTER → 2024-12-26 08:25 | Outpatient (BNVA) | payer OTHER, SELFPAY | PROVIDERS: PCP Internal Medicine; Visit Provider Internal Medicine | DX: Z00.01 Encounter for general adult medical examination with abnormal findings (principal); F41.9 Anxiety disorder, unspecified; N95.1 Menopausal and female climacteric states; R23.2 Flushing; F32.A Depression, unspecified; E78.5 Hyperlipidemia, unspecified; M54.16 Radiculopathy, lumbar region; K21.9 Gastro-esophageal reflux disease without esophagitis; Z86.0101 Personal history of adenomatous and serrated colon polyps; Z97.5 Presence of (intrauterine) contraceptive device | CPT/HCPCS: 96127 ==

== ENCOUNTER 2025-01-11 09:02 | Outpatient (AMB) | payer OTHER, SELFPAY ==
[2025-01-11 09:10] VITALS: BP 115/71; PULSE 77; BMI 25.2
--- NOTE | 2025-01-11 09:10 | A.OFFVIS_ITS ---
Vital Signs 01/11/25 09:10 Height 5 ft 2 in Weight 138 lb BMI 25.2 BP 115/71 Blood Pressure Location Rt brachial Position Sitting Pulse 77 Intake Visit Reasons: 6m Intake Note: Jacque presents to in office today in follow up of GERD. CC: Patient states that she is doing ok, except when she sometimes eats some foods that affect her. Oem Sales Manager Required: No Accompanied by: Self / Same As Patient Allergies No Known Drug Allergies Allergy (Unknown, Verified 01/11/25 09:16) none TAPE,PLASTIC Allergy (Intermediate, Uncoded 12/31/24 19:58) rash/itching HPI HPI 6m: Details: Assessment & Plan (1) GERD (gastroesophageal reflux disease): Code(s): K21.9 - Gastro-esophageal reflux disease without esophagitis Category: Medical Plan She continues on her omeprazole with good effect and she continues her benefiber daily and her bowels are up and down, but she desires no change in her regimen at t his time. Her breast problem was completely removed and was pre cancerous. She is being followed by onc. She had her tummy tuck and it went well. ROV 6 mos. Medications: Refilled omeprazole 40 mg PO DAILY 90 caps 1RF TODAY'S VISIT [facility] Medical History Nausea and vomiting History of adenomatous polyp of colon Hip pain, right Pompholyx dermatitis Lumbar back pain with radiculopathy affecting lower extremity Dyslipidemia Vitamin D deficiency Polyarthralgia History of cystocele External hemorrhoids Tear of meniscus of left knee HX: benign breast biopsy Anxiety and depression Surgical History Hx of abdominoplasty History of lumpectomy of left breast H/O colonoscopy Hx of LASIK H/O arthroscopy of shoulder Hx of cervical discectomy Family History Sister Breast cancer, Onset Age: 38 Mother Breast cancer Father Esophageal cancer Maternal Uncle Colon cancer Social History Housing: House Patient Tobacco Use Status: Never used Tobacco e-Cigarette/Vaping Use: Never Used service: No Current occupational status: employed Cognitive needs: No Hearing needs: No Vision needs: Yes Review of Systems Const Denies fatigue, Denies fever(s), Denies night sweats, Denies poor appetite and Denies weight loss ENT Reports Normal hearing present, Denies dental pain, Denies dysphagia, Denies hearing loss, Denies mouth pain, Reports neck pain, Denies odynophagia, Denies throat swelling, Denies tongue swelling and Reports other (Dentition adequate) Card Reports no additional complaints Resp Reports no additional complaints GI Details: Denies abdominal pain, Denies melena, Denies bloating, Denies hematochezia, Denies constipation, Reports GI cramping, Denies dysphagia, Denies excessive flatus, Denies early satiety, Reports heartburn, Denies diarrhea, Reports loose stools, Denies nausea, Denies odynophagia, Denies vomiting and Denies hematemesis Musc Reports back pain, Reports myalgias, Reports arthralgias, Reports neck pain, Reports radiating pain into limb and Reports stiffness Skin/Breast Denies pruritus, Denies lesions, Denies rash and Denies jaundice Neuro Reports Normal hearing present and Denies Abnormal speech present Psych Reports anxiety Endo Denies fatigue Aller/Immun Denies throat swelling and Denies tongue swelling Physical Exam Vital Signs: Last Vital Signs Pulse 77 01/11/25 09:10 BP 115/71 01/11/25 09:10 BMI result Body Mass Index 25.2 Const General: cooperative, no acute distress, well developed and well groomed Nutritional Appearance: average body habitus and well nourished Orientation/consciousness: oriented to person, oriented to place and oriented to time Limitations: No language barrier HEENT Head: Yes normocephalic and Yes atraumatic Eyes General: appearance normal, both eyes and all related structures Pupils: Equal, round and reactive pupils present Neck Neck: Yes normal visual inspection and Yes no lymphadenopathy Thyroid: Thyroid normal Resp Effort & Inspection: normal respiratory effort and able to speak in complete sentences Auscultation: clear to auscultation bilaterally Cardio Rate: regular rate Rhythm: regular rhythm Heart sounds: Normal, physiologic split S2 sound present Peripheral pulses: radial pulses present and posterior tibial pulses present GI Inspection: No distended and No Abdominal panniculus present Palpation (GI): Soft to palpation, nontender, no guarding, not rigid and No hepatosplenomegaly present Percussion: Yes normal to percussion Auscultation: normal bowel sounds Rectal Exam - Female: deferred Skin General skin exam: no rashes or lesions noted, turgor normal, skin not dry, no jaundice, No spider nevi and no striae Rashes: no rashes Nails: normal Neuro General: oriented to person, oriented to place and oriented to time Cranial nerves: Yes Equal, round and reactive pupils present and Yes Normal hearing present Speech: No Abnormal speech present Extrem General: Yes normal to inspection, No clubbing, No cyanosis and No edema Psych Appearance: grossly normal and well kempt Mental Status: mental status grossly normal Speech and movement: Normal speech and movement present Affect: normal affect Attitude: cooperative Thought process: Normal thought process present and not confabulating Thought content: Normal thought content present Insight: Good insight present (Psych) Judgement: Good judgement present (Psych) Assessment & Plan Assessment & Plan (1) IBS (irritable bowel syndrome): Code(s): K58.9 - Irritable bowel syndrome, unspecified Category: Medical Plan - The patient is a 54-year-old female presenting FOR FOLLOW-UP OF GERD AND I IBS. - Omeprazole is used sporadically without noted regularity. - Reports tenesmus and varying bowel movements, which have been notably irritable lately. - incidentally, the patient experiences pervasive body pain. Chronic issues with the back have previously been noted, with current symptoms affecting movement and sleep quality. The patient's symptoms include hip and leg pain, with accompanying joint distress in multiple areas. A history of neck surgery and degenerative disc concerns were highlighted, with no immediate recent injuries reported. Since her GERD is well controlled, I suggest a trial of dicyclomine to see if we can calm down the looser stools in the tenesmus. She is agreeable to this and will experiment with how much she needs to use it. Because she has other health problems that she needs to follow-up on now she requests a 1 year follow-up and should her irritable bowel worsen or the dicyclomine not be helpful then she can call my office for a earlier appointment. Return office visit in 1 year Medications: New dicyclomine 20 mg PO QID PRN 120 tabs 3RF abdominal pain 30 days K58.9 - Irritable bowel syndrome, unspecified Refilled omeprazole 40 mg PO DAILY 90 caps 2RF Coding Level of Care Code Est Pt Level 3 (04779) Diagnoses IBS (irritable bowel syndrome) K58.9
--- OUTSIDE RECORDS SUMMARY | 2025-01-11 10:02 | XMS_ITS | Clinical Summary ---
Author Organization [facility] Address [address] [place] [address] Care Team Providers Care Spectroscopist Name Role Phone José Luis Pepe MD Primary Care Provider +1- [phone] Allergies Active Allergy Reactions Criticality Noted Date [...] age to complete this topic Care Teams Spectroscopist Relationship Specialty Start Date End Date José Luis Pepe MD [address] [facility] [address] [place] [address] PCP - General Internal Medicine 12/15/18
--- OUTSIDE RECORDS SUMMARY | 2025-01-11 10:02 | XMS_ITS | Clinical Summary ---
Author Organization [facility] Address [address] [place] [address] Phone Care Team Providers Care Teacher Home Therapy Name Role Phone Physician, Pcp Unknown Primary Care Provider Elissa vailable Allergies Active Allergy Reactions Criticality Noted Date [...] Encounters Date Type Department Care Team Description 01/05/2025 Lab Requisition [facility] - Main Lab [address] [facility] [place] [address] Bradly Lopez MD Encounter for gynecological examination (general) (routine) without abnormal findings 11/30/2024 7:34 AM EDT - 11/30/2024 11:59 PM EDT [facility] [address] [address] Encounter for screening mammogram for breast cancer Discharge Disposition: Home or Self Care from Last 3 Months Surgical History Surgery Date Site/Laterality Comments MENISCECTOMY left knww ANTERIOR CERVICAL DISCECTOMY W/ FUSION INCONTINENCE SURGERY BUNIONECTOMY COLONOSCOPY COSMETIC SURGERY TOTAL SHOULDER ARTHROPLASTY LIPECTOMY 02/07/2024 Panniculectomy EXCISION BREAST LESION W/ SC EOP NEEDLE LOC 02/16/2024 Left Left breast [...] AM EST Office Visit [facility] [address] [place] [phone] Alysia Parham MD [address] [place] [address] Health Maintenance Due Date Last Done Comments Colorectal Cancer Screening: Colonoscopy 1972 Hepatitis B Vaccines (1 of 3 - 19+ 3-dose series) 1991 Cervical Cancer Screening: Pap Smear 1993 COVID-19 Vaccine (3 - Moderna risk series) 09/09/2020 08/12/2020, 07/15/2020 HIV Screening 02/24/2022 Hepatitis C Screening 02/24/2022 Social Influencers of Health Screening 02/24/2022 Pneumococcal Vaccine: 50+ Years (1 of 1 - PCV) 2022 Depression Screening 03/29/2024 Influenza Vaccine (#1) 2024 [...] this topic Medical Devices Implanted Type Area Telecommunications Administrator Device Identifier Shelf Expiration Date Model / Serial / Lot Marker 18ga Magseed 7cm - [id number] - [id number] Implanted:Qty: 1 on 02/14/2024 by Lois Coates MD at [facility] Imaging Implants Left: Breast DEVICOR [employer] [id number] 11/26/2026 [id number] / [id number] Procedures Procedure Name Priority Date/Time Associated Diagnosis [...] [facility] [address], [address] -------- FINAL REPORT -------- Dictated By: Nain Roa Dictated Date: 11/30/2024 10:06 ET Assigned Physician: Nain Roa Reviewed and Electronically Signed By: Nain Roa Signed Date: 11/30/2024 10:24 ET Workstation ID: [id number] Transcribed By: Self Edit Transcribed Date: 11/30/2024 [...] None Computer-aided detection was employed with the [employer] AI 3-D. TISSUE DENSITY: There are scattered [...] None Computer-aided detection was employed with the [employer] AI 3-D. TISSUE DENSITY: There are scattered [...] MRI [facility]amm[facility] [address], [address] -------- FINAL REPORT -------- Dictated By: Nain Roa Dictated Date: 11/30/2024 10:06 ET Assigned Physician: Nain Roa Reviewed and Electronically Signed By: Nain Roa Signed Date: 11/30/2024 10:24 ET Workstation ID: [id number] Transcribed By: Self Edit Transcribed Date: 11/30/2024 [...] currently active code status orders. Care Teams Teacher Home Therapy Relationship Specialty Start Date End Date Physician, Pcp Unknown PCP - General 01/05/25
--- OUTSIDE RECORDS SUMMARY | 2025-01-11 10:02 | XMS_ITS | Encounter Summary ---
Author Organization [facility] Address [address] [place] [address] Care Team Providers Care Food Preservation Scientist Name Role Phone Physician, Pcp Unknown Primary Care Provider Elissa vailable Encounter Details Date Type Department Care Team (Latest Contact Info) Description 01/05/2025 Lab Requisition [facility] Lab [address] [place] [phone] Bradly Lopez MD [address] [phone] Encounter for gynecological examination (general) (routine) without abnormal findings Social History Tobacco Use Types Packs/Day Years Used Date Smoking Tobacco: Never Alcohol Use Standard Drinks/Week Comments Yes 0 [...] Orientation Straight 02/16/2024 5: 05 AM EST documented as of this encounter Plan of Treatment Upcoming Encounters Date Type Department Care Team (Late st Contact Info) Description 03/01/2025 8:00 AM EST Office Visit [facility] [address] [place] [phone] Alysia Parham MD [address] [place] [address] Pending Results Name Type Priority Associated Diagnoses Date /Time Pap smear Pathology and Cytology Routine Encounter for gynecological examination (general) (routine) without abnormal findings 01/04/2025 12:00 AM EDT documented as of this encounter Visit Diagnoses Diagnosis Encounter for gynecological examination (general) (routine) without abnormal findings documented in this encounter Care Teams Food Preservation Scientist Relationship Specialty Start Date End Date Physician, Pcp Unknown PCP - General 01/05/25 documented as of this encounter
== END 2025-01-11 09:30 | disposition home or self-care (01) ==
LOC: HO.HGI 09:03
PROVIDERS: PCP Internal Medicine; Visit Provider Nurse Practitioner
DX: K58.9 Irritable bowel syndrome, unspecified (principal)
CPT/HCPCS: 99213

== ENCOUNTER 2025-01-17 16:42 | Outpatient (REF) | payer OTHER, SELFPAY ==
--- NOTE | ~2025-01-17 | MR_ITS ---
EXAM: MRI Lumbar Spine without Contrast. TECHNIQUE: Multiplanar multisequence MRI of the lumbar spine with performed without contrast. INDICATION: M54.16 - Radiculopathy, lumbar region PRIOR: CT September 29, 2016 FINDINGS: Vestigial ribs are present at T12. There is a sacralized L5 segment. Marrow and end-plates: Modic 2 signal changes present in the anterior superior T11 and L1. Alignment: There is subtle retrolisthesis at L2-3. Soft tissues: Small simple renal cysts are present bilaterally and there are left pararenal cyst. Conus: The termination of conus medullaris is within normal limits at the level of L1. T12-L1: There is mild loss disc height and circumferential broad-based disc bulge without spinal stenosis or foraminal narrowing. L1-L2: There is minimal disc bulge without spinal stenosis or foraminal narrowing. L2-L3: There is mild loss disc height and circumferential broad-based disc bulge without spinal stenosis or foraminal narrowing. L3-L4: There is mild loss disc height with circumferential broad-based disc bulge not causing spinal stenosis or foraminal narrowing. There is minimal narrowing of subarticular zones. There is mild facet arthropathy. L4-L5: There is mild broad-based disc bulge and mild facet arthropathy. There is no spinal stenosis. There is no right foraminal narrowing. The left neural foramen is mildly narrowed. L5-S1: There is a transitional sacralized L5 segment. There is no disc bulge, herniation, spinal stenosis, or foraminal narrowing. MR/MR lumbar spine wo con IMPRESSION: There is sacralized L5 segment. Mild degenerative disc disease is noted at T12-L1, L2-3, L3-4, and L4-5. Electronically signed by: Sai Joiner MD 01/17/2025 05:43 PM EDT
--- OUTSIDE RECORDS SUMMARY | 2025-01-17 22:12 | XMS_ITS | Encounter Summary ---
Author Organization [facility] Address [address] [place] [address] Care Team Providers Care Prefabricated Houses Trimmer Name Role Phone Physician, Pcp Unknown Primary Care Provider Elissa vailable Encounter Details Date Type Department Care Team (Latest Contact Info) Description 01/05/2025 Lab Requisition [facility] Lab [address] [place] [phone] Bradly Lopez MD [address] [phone] Encounter for gynecological examination (general) (routine) without [...] Description 03/01/2025 8:00 AM EST Office Visit [facility] [address] [place] [phone] Alysia Parham MD [address] [place] [address] Pending Results Name Type Priority Associated Diagnoses Date /Time Pap smear Pathology and Cytology Routine Encounter for gynecological examination (general) (routine) without abnormal findings 01/04/2025 12:00 AM EDT documented as of this encounter Visit Diagnoses Diagnosis Encounter for gynecological examination (general) (routine) without abnormal findings documented in this encounter Care Teams Prefabricated Houses Trimmer Relationship Specialty Start Date End Date Physician, Pcp Unknown PCP - General 01/05/25 documented as of this encounter
--- OUTSIDE RECORDS SUMMARY | 2025-01-17 22:12 | XMS_ITS | Data Portability ---
Author Organization [place] [facility] Address [address] [place] [address] Care Team Providers Care Workers' Compensation Claims Examiner Name Role Phone ROBY ARANA Primary Care Provider Assessment Encounter Date Assessment Date Assessment LastModified by Organization Details LastModified Time 07/09/2022 07/09/2022 Pleasant 52-year -old female with likely arthritic flare of her left knee versus patellofemoral syndrome. I had a lengthy discussion with patient guarding management. She does not elicit any mechanical symptoms that are reproducible. We did discuss uzkm-mdg-rgoeuor treatment modalities however she did opt for [...] did discuss viscosupplementation injections. As well as whwp-dge-imzswkn treatments and physical therapy. She is amenable [...] or more view 2022 023 [facility], [address], [address], [place], [address], 13:02:37 Medication Orders Celebrex 200 mg capsule 2022 023 [facility]/Pharmacy #[id number], [address] [place], [address], 08:58:51 Kenalog 40 mg/mL suspension for injection [address]/Pharmacy #[id number], [address] [place], [address], 09:13:50 lidocaine (PF) 10 mg/mL (1 %) injection solution 2022 023 [id number] [place], [address], 09:13:50 Patient TargetsNo targets recorded. Patient Instructions Encounter Date Encounter Id Patient Instructions Last Modified By Organization Details Last Modified Time 07/09/2022 [id number] You have been provided with a cortisone [...] following the injection. This is called a f lare . To help minimize the chances of [...] Name and Address Organization Details Recorded Time Iliotibia l band friction syndrome 485836200 Active 2021 Iliotibia l band syndrome affecting left lower leg Not Available [facility] 5 23:09:44 Arthritis of left knee joint 92743956273 42040 Active 2021 Arthritis of knee, left Not Available [facility] 5 23:09:45 Lumbar radiculop athy 225801372 Active 2021 Lumbar back pain with radiculop athy affecting left lower extremity Not Available [facility] 5 23:09:45 Effusion of joint of left knee 43335344569 9105 Active 2021 Effusion of left knee joint Not Available [facility] 5 23:09:46 Patellofe moral syndrome of left knee 06356902052 91834 Active 2022 LAM DOVER PA-C [address], [place], [address] , [place] [facility] 3 09:12:58 Pain of left knee joint 51402738987 4107 Active 2022 LAM DOVER PA-C [address], [place], [address] , [place] [facility], [facility] 3 08:42:34 Patellofe moral syndrome of right knee 91549107686 59730 Active 2022 LAM DOVER PA-C [address] [facility],[address], [place], [address] , [facility] 3 08:58:15 Problem Notes None recorded. Procedures Surgical History Date Name Laterality Status Provider Name and Address Organization Details Recorded Time 3 Knee Joint/Bursa Asp & Inj completed LAM DOVER PA-C [address] [facility],[address], [place], [address], [facility], [facility] 07/09/2022 09:11:55 Knee Surgery completed Tresa Ibrahim [facility], P 07/09/2022 08:36:30 Shoulder Surgery completed Tresa Ibrahim [facility], P 07/09/2022 08:36:42 Head or Neck Surgery completed Tresa Ibrahim [facility], P 07/09/2022 08:36:51 excision of bunion completed [facility], P 09/14/2022 08:44:08 repair of meniscus completed [facility], P 09/14/2022 08:45:22 Imaging Results None recorded. Procedure Notes None recorded. Medical Equipment None Reported. Allergies Allergen ID Allergen Name Allergen Category Reaction Reaction Severity Criticality Documentation Date Start Date Code Code System Note Provider Name and Address Organization Details Recorded Time 2161 amoxicill in medicatio n Not available Not available Not available 07/09/2022 723 RxNorm Tresa travis [facility], [facility] 3 08:34:43 2162 adhesive tape environme nt,medica tion Not available Not available Not available 07/09/2022 Tresa travis [facility], P 3 08:34:51 Medications Name Sig Start Date Stop Date Status Note LastModified by Organization Details LastModified Time celecoxib 200 mg capsule TAKE 1 CAPSULE BY MOUTH EVERY DAY active Not Available Not Available No t Available methocarbam ol 500 mg tablet TAKE 2 TABLETS BY MOUTH EVERY 8 HOURS NEEDED FOR PAIN AND/OR MUSCLE SPASMS active Not Available Not Available No t Available hydrocodone 5 mg-acetamin ophen 325 mg tablet Take 1 to 2 tabs every 6 hours as needed for pain 2019 active Not Available Not Available Not Avai lable prednisone 20 mg tablet SEE TAPER SHEET active Not Available Not Available No t Available Kenalog 40 mg/mL suspension for injection Take 1.5 mL by injection route. 2022 active Not Available Not Available Not Avai lable citalopram 20 mg tablet citalopra m 20 mg tablet active Not Available Not Available No t Available triamcinolo ne acetonide 0.025 % topical cream APPLY TOPICALLY TWICE DAILY FOR TEN DAYS active Not Available Not Available No t Available methylpredn isolone acetate 40 mg/mL suspension for injection 06/26 completed Not Available Not Available Not Available sertraline 25 mg tablet Take 25 mg by mouth daily. active Not Available Not Available No t Available gabapentin 100 mg capsule daily. active Not Available Not Available Not Available methylpredn isolone 4 mg tablets in a dose pack [...] oral solution PLEASE SEE ATTACHED FOR DETAILED DIRECTION S active Not Available Not Available No t Available Gel-One 30 mg/3 mL intra-artic ular syringe Inject 30 mg into the articular space once for 1 dose. 03/28 completed Not Available Not Available Not Available Vitals Date Recorded Body height Body mass index (BMI) Body weight Provider Name and Address Organization Details Last Updated DateTime 09/14/2022 152.4 cm 27.7 kg/m2 81696.[address] [facility] 09/14/2022 08:41:28 Social History None recorded. Functional [...] Time Father Family history of malignant neoplasm [email or web address] Not available 2022 08:35:51 Father Hypertensive disorder [email or web address] Not available 2022 08:36:03 Father Hypercholest erolemia Not available 2022 08:43:41 Mother Family history of malignant neoplasm [email or web address] Not available 2022 08:35:51 Sister Family history of malignant neoplasm [email or web address] Not available 2022 08:35:51 Medical History No medical history recorded. Gynecological HistoryNo gynecological history recorded. Obstetrics History GPAL:G 0 P 0 0 0 0 Past Encounters Encounter ID Performer Location Encounter Start Date Encounter Closed Date Diagnosis/Indication Diagnosis SNOMED-CT Code Diagnosis ICD10 Code Diagnosis IMO Codes Diagnosis Note [id number] YADIRA HERNANDEZ [address] [address] 07/09/2022 08:29:07 07/09/2022 09:05:28 Pain of left knee joint 7902453201 31708 M25.562 Patellofem oral syndrome of left knee 3404376774 703177 M22.2X2 [id number] YADIRA HERNANDEZ [address] [address] 08/17/2022 08:26:42 08/17/2022 08:46:02 Pain of left knee joint 7024630713 04326 M25.562 Patellofem oral syndrome of left knee 4745439767 092155 M22.2X2 [id number] YADIRA HERNANDEZmarely [address] [address] [place] [address] 09/14/2022 08:30:19 09/14/2022 08:48:19 Pain of left knee joint 8985991322 85503 M25.562 Patellofem oral syndrome of left knee 5326817676 585288 M22.2X2 Health Concerns Section Related Observation LastModified by Organization Detai ls LastModified Time None Recorded Concern Status LastModified by Organization Details LastModified Time None Recorded Advance Directives Directive None Recorded Payers Insurance Date Sequence Insurance Name Policy Number Policy Shaw Covered Member ID Shaw Member ID Guarantor Name 09/14/2022 1 JUAN MOBLEY (PPO) Jacque Blankenship [id number] Jacque Blankenship Notes Date Note Type [...] evaluation and treatment. LAM DOVER PA-C 299 [facility] [address], [place], [address], [place] [facility] 07/09/2022 09:15:39 3 text/html Assessment & Plan date of visit 3Pleasant 52-year-old female with likely arthritic flare of her left knee versus patellofemoral syndrome. I had a lengthy discussion with patient guarding management. She does not elicit any mechanical symptoms that are reproducible. We did discuss hriz-ohn-ggfpctg treatment modalities however she did opt for [...] formal physical therapy. LAM DOVER PA-C [address] [facility],[address] [address], [place], [address], [place] [facility] 08/17/2022 08:55:59 3 text/html Assessment & Plan: year-old female following up on her left knee due to patellofemoral syndrome treated with cortisone injection on 07/09/2022. With no notable improvement. Still ongoing lingering symptoms she does not know she has underlying mild arthritic change we did discuss viscosupplementation injections. As well as etha-zkz-ktuqjwn treatments and physical therapy. She is amenable [...] reduced her symptoms. LAM DOVER PA-C [address] [facility],[address], [place], [address], [place] [facility] 09/14/2022 08:59:14 OBGyn Episode No OBEpisode recorded.
--- OUTSIDE RECORDS SUMMARY | 2025-01-17 22:12 | XMS_ITS | Clinical Summary ---
Author Organization [facility] Address [address] [place] [address] Care Team Providers Care Lap Polisher Name Role Phone José Luis Pepe MD Primary Care Provider [phone]- [phone] Allergies Active Allergy Reactions Criticality Noted Date [...] age to complete this topic Care Teams Lap Polisher Relationship Specialty Start Date End Date José Luis Pepe MD 299 [facility] [address] [place] [address] PCP - General Internal Medicine 12/15/18
--- OUTSIDE RECORDS SUMMARY | 2025-01-17 22:12 | XMS_ITS | Clinical Summary ---
Author Organization [facility] Address [address] [place] [address] Phone Care Team Providers Care Charm Filter Operator Helper Name Role Phone Physician, Pcp Unknown Primary [...] Department Care Team Description 01/05/2025 Lab Requisition [facility] - Main Lab 299 [facility] [place] [address] Bradly Lopez MD Encounter for gynecological examination (general) (routine) without abnormal findings 11/30/2024 7:34 AM EDT - 11/30/2024 11:59 PM EDT Hospital [facility] at [address] [address] Encounter for screening mammogram for breast cancer Discharge Disposition: Home or Self Care from Last 3 Months Surgical History Surgery Date Site/Laterality Comments MENISCECTOMY left knww ANTERIOR CERVICAL DISCECTOMY W/ FUSION INCONTINENCE SURGERY BUNIONECTOMY COLONOSCOPY COSMETIC SURGERY TOTAL SHOULDER ARTHROPLASTY LIPECTOMY 02/07/2024 Panniculectomy EXCISION BREAST LESION W/ [place] EOP NEEDLE LOC 02/16/2024 Left Left breast [...] AM EST [facility] [address] [place] [address] Alysia Parham MD [address] [place] [address] Health Maintenance Due Date Last Done Comments [...] this topic Medical Devices Implanted Type Area Environmental Aid Device Identifier Shelf Expiration Date Model / Serial / Lot Marker 18ga Magseed 7cm - [id number] - [id number] Implanted:Qty: 1 on 02/14/2024 by Lois Coates MD at [facility] Implants Left: Breast DEVICOR [employer] [id number] 11/26/2026 [id number] / [id number] Procedures Procedure Name Priority Date/Time Associated Diagnosis [...] [facility] [address], [address] -------- FINAL REPORT -------- Dictated By: Nain Roa Dictated Date: 11/30/2024 10:06 ET Assigned Physician: Nain Roa Reviewed and Electronically Signed By: Nain Roa Signed Date: 11/30/2024 10:24 ET Workstation ID: [id number] Transcribed By: Self Edit Transcribed Date: 11/30/2024 [...] None Computer-aided detection was employed with the [employer] AI 3-D. TISSUE DENSITY: There are scattered [...] None Computer-aided detection was employed with the [employer] AI 3-D. TISSUE DENSITY: There are scattered [...] MRI Mamm[facility] location[facility] [address], [address] -------- FINAL REPORT -------- Dictated By: Nain Roa Dictated Date: 11/30/2024 10:06 ET Assigned Physician: Nain Roa Reviewed and Electronically Signed By: Nain Roa Signed Date: 11/30/2024 10:24 ET Workstation ID: [id number] Transcribed By: Self Edit Transcribed Date: 11/30/2024 [...] currently active code status orders. Care Teams Charm Filter Operator Helper Relationship Specialty Start Date End Date Physician, Pcp Unknown PCP - General 01/05/25
== END 2025-01-17 16:43 | disposition home or self-care (01) ==
LOC: HO.MRI 16:42
PROVIDERS: PCP Internal Medicine; Visit Provider Physician Assistant
DX: M54.16 Radiculopathy, lumbar region (principal)
CPT/HCPCS: 72148

== ENCOUNTER → 2025-01-17 17:00 | Outpatient (BNV) | payer OTHER, SELFPAY | PROVIDERS: PCP Internal Medicine; Visit Provider Radiology Diagnostic Radiology | DX: M51.15 Intervertebral disc disorders with radiculopathy, thoracolumbar region (principal) | CPT/HCPCS: 72148 ==

== ENCOUNTER 2025-02-14 09:27 | Outpatient (REF) | payer OTHER, SELFPAY ==
[2025-02-14 10:40] LABS: Hematocrit 41.3 % (37.0-47.0); Hemoglobin 13.2 g/dl (12.0-16.0)
[2025-02-14 12:26] LABS: Alanine Aminotransferase 16 U/L (0-31); Anion Gap 12 (12-20); Aspartate Amino Transferase 18 U/L (5-31); Blood Urea Nitrogen 16 mg/dL (9-16); Calcium 9.3 mg/dL (8.4-10.2); Carbon Dioxide 29 mmol/L (22-29); Chloride 104 mmol/L (96-108); Cholesterol 201 mg/dL (<200); Estimated Glomerular Filt Rate > 60; HDL Cholesterol 53 mg/dL (>40); Potassium 4.1 mmol/L (3.3-5.1); Sodium 141 mmol/L (135-145); Triglycerides 54 mg/dL (<150)
--- OUTSIDE RECORDS SUMMARY | 2025-02-14 17:24 | XMS_ITS | Clinical Summary ---
Author Organization [facility] Address [address] [place] [address] Care Team Providers Care Debrander Name Role Phone José Luis Pepe MD Primary Care Provider +1- [phone] Allergies Active Allergy Reactions Criticality Noted Date [...] age to complete this topic Care Teams Debrander Relationship Specialty Start Date End Date José Luis Pepe MD 299 [facility] [address] [place] [address] PCP - General Internal Medicine 12/15/18
--- OUTSIDE RECORDS SUMMARY | 2025-02-14 17:24 | XMS_ITS | Encounter Summary ---
Author Organization [facility] Address [address] [place] [address] Care Team Providers Care Electric Trucker Name Role Phone Physician, Pcp Unknown Primary Care Provider Elissa vailable Encounter Details Date Type Department Care Team (Latest Contact Info) Description 01/05/2025 Lab Requisition [facility] Lab [address] [place] [address] Bradly Lopez MD [address] [phone] Encounter for gynecological examination (general) (routine) without [...] Care Team (Late st Contact Info) Description 05/31/2025 1:40 PM EST Office Visit [facility] [address] [place] [phone] Alysia Parham MD [address] [place] [address] documented as of this encounter Procedures Procedure Name Priority Date/Time Associated Diagnosis Comments PAP SMEAR Routine 01/04/2025 12:00 AM EDT Encounter for gynecological examination (general) (routine) without abnormal findings documented in this encounter Results * Pap smear (01/04/2025 12:00 AM EDT) Interpretation Negative for intraepithelial lesion or malignancy 01/18/2025 2:19 PM EDT [facility] at 1419 EDT General Categorization Negative 01/18/2025 2:19 PM EDT [facility] Specimen Adequacy Satisfactory for evaluation, endocervical/jung sformation zone component absent 01/18/2025 2:19 PM EDT [facility] Pap Methodology Liquid Based Pap Test 01/18/2025 2:19 PM EDT [facility] Disclaimer The Pap test is a screening test which carries an inherent false negative rate. These test results should be correlated with the patient's clinical findings and history. This Pap test was processed using an automated screening system. Technical cytopathology services provided by [facility], at [address] [place] [address] (CLIA # [id number]/Mini Mitchell MD, Dinkey Engineer.) 01/18/2025 2:19 PM EDT [facility] Console Pap Interpretation Reported 01/18/2025 2:19 PM EDT [facility] Brushing/Spatula Cervix uteri structure / Unknown 01/04/2025 01/05/2025 7:15 AM EDT us Bradly Lopez MD LAB CYTOLOGY ORDERABLES Final Result [facility] [address] [place] [address], documented in this encounter Visit Diagnoses Diagnosis Encounter for gynecological examination (general) (routine) without abnormal findings documented in this encounter Care Teams Electric Trucker Relationship Specialty Start Date End Date Physician, Pcp Unknown PCP - General 01/05/25 documented as of this encounter
--- OUTSIDE RECORDS SUMMARY | 2025-02-14 17:25 | XMS_ITS | Clinical Summary ---
Author Organization [facility] Address [address] [place] [address] Phone Care Team Providers Care Nurse Sitter Name Role Phone Physician, Pcp Unknown Primary [...] Department Care Team Description 01/05/2025 Lab Requisition [facility] - Main Lab 299 [facility] [place] [address] Bradly Lopez MD Encounter for gynecological examination (general) (routine) without abnormal findings 11/30/2024 7:34 AM EDT - 11/30/2024 11:59 PM EDT Hospital [facility] at [address] [address] Encounter for screening mammogram for breast cancer Discharge Disposition: Home or Self Care from Last 3 Months Surgical History Surgery Date Site/Laterality Comments MENISCECTOMY left knww ANTERIOR CERVICAL DISCECTOMY W/ FUSION INCONTINENCE SURGERY BUNIONECTOMY COLONOSCOPY COSMETIC SURGERY TOTAL SHOULDER ARTHROPLASTY LIPECTOMY 02/07/2024 Panniculectomy EXCISION BREAST LESION W/ WI EOP NEEDLE LOC 02/16/2024 Left Left breast [...] Description 05/31/2025 1:40 PM EST [facility] [address] [place] [phone] Alysia Parham MD [address] [place] [address] Health Maintenance Due Date Last Done Comments Colorectal Cancer Screening: Colonoscopy 1972 Hepatitis B Vaccines (1 of 3 - 19+ 3-dose series) 1991 Pneumococcal Vaccine: 50+ Years (1 of 2 - PCV) 1991 COVID-19 Vaccine (3 - Moderna risk series) 09/09/2020 08/12/2020, 07/15/2020 HIV Screening 02/24/2022 Hepatitis C Screening 02/24/2022 Social Influencers of Health Screening 02/24/2022 Depression Screening 03/29/2024 Influenza Vaccine (#1) 2024 02/09/2022, 2017 Breast Cancer Screening 11/30/2026 12/01/19, 11/26/2023, 11/12/2022, Additional history exists Cervical Cancer Screening: Pap Smear 01/05/2028 01/04/2025 DTaP,Tdap,and Td Vaccines (2 - Td or [...] this topic Medical Devices Implanted Type Area Board Layer Device Identifier Shelf Expiration Date Model / Serial / Lot Marker 18ga Magseed 7cm - [id number] - [id number] Implanted:Qty: 1 on 02/14/2024 by Lois Coates MD at [facility] Implants Left: Breast DEVICOR [employer] [id number] 11/26/2026 [id number] / [id number] Procedures Procedure Name Priority Date/Time Associated Diagnosis Comments PAP SMEAR Routine 01/04/2025 12:00 AM EDT Encounter for gynecological examination (general) (routine) without abnormal findings MG MAMMO DIGITAL SCREENING W ARIS BILAT Routine 11/30/2024 7:57 AM EDT Encounter for screening mammogram for breast cancer from Last 3 Months Results * Pap smear (01/04/2025 12:00 AM EDT) Interpretation Negative for intraepithelial lesion or malignancy 01/18/2025 2:19 PM EDT [facility] at 1419 EDT General Categorization Negative 01/18/2025 2:19 PM EDT [facility] Specimen Adequacy Satisfactory for evaluation, endocervical/jung sformation zone component absent 01/18/2025 2:19 PM EDT [facility] Pap Methodology Liquid Based Pap Test 01/18/2025 2:19 PM EDT [facility] Disclaimer The Pap test is a screening test which carries an inherent false negative rate. These test results should be correlated with the patient's clinical findings and history. This Pap test was processed using an automated screening system. Technical cytopathology services provided by [facility], at [address] [place] [address], [place] [address] (CLIA # [id number]/Mini Mitchell MD, Pin Ball Machine Mechanic.) 01/18/2025 2:19 PM EDT [facility] Console Pap Interpretation Reported 01/18/2025 2:19 PM EDT [facility] Brushing/Spatula Cervix uteri structure / Unknown 01/04/2025 01/05/2025 7:15 AM EDT Bradly Lopez MD LAB CYTOLOGY ORDERABLES Final Result [facility] [address] [place] [address], [place] [phone] * MG Mammo Digital Screening w Aris [...] MRI [facility]amm[facility] location[facility] [address] [place], [address] -------- FINAL REPORT -------- Dictated By: Nain Roa Dictated Date: 11/30/2024 10:06 ET Assigned Physician: Nain Roa Reviewed and Electronically Signed By: Nain Roa Signed Date: 11/30/2024 10:24 ET Workstation ID: [id number] Transcribed By: Self Edit Transcribed Date: 11/30/2024 [...] None Computer-aided detection was employed with the [employer] AI 3-D. TISSUE DENSITY: There are scattered [...] None Computer-aided detection was employed with the [employer] AI 3-D. TISSUE DENSITY: There are [...] MRI Mamm[facility] at [address], [address] -------- FINAL REPORT -------- Dictated By: Nain Roa Dictated Date: 11/30/2024 10:06 ET Assigned Physician: Nain Roa Reviewed and Electronically Signed By: Nain Roa Signed Date: 11/30/2024 10:24 ET Workstation ID: [id number] Transcribed By: Self Edit Transcribed Date: 11/30/2024 [...] currently active code status orders. Care Teams Nurse Sitter Relationship Specialty Start Date End Date Physician, Pcp Unknown PCP - General 01/05/25
--- OUTSIDE RECORDS SUMMARY | 2025-02-14 17:25 | XMS_ITS | Data Portability ---
Author Organization [place] [facility] [place] Address [address] [place] [address] Care Team Providers Care Product Development Specialist Name Role Phone ROBY ARANA Primary Care Provider [phone] Assessment Encounter Date Assessment Date Assessment LastModified by Organization Details LastModified Time 07/09/2022 07/09/2022 Pleasant 52-year -old female with likely arthritic flare of her left knee versus patellofemoral syndrome. I had a lengthy discussion with patient guarding management. She does not elicit any mechanical symptoms that are reproducible. We did discuss rrvk-bmj-mjfggju treatment modalities however she did opt for [...] did discuss viscosupplementation injections. As well as vrfc-rxd-ayfiggs treatments and physical therapy. She is amenable [...] care and treatment in conjunction with Dr. uDbon Additional treatment plan discussed with the patient [...] or more view 2022 023 [facility], [address], [address], [place], [address], 13:02:37 Medication Orders Celebrex 200 mg capsule 2022 023 [facility]/Pharmacy #[id number], [address] [place], [address], 08:58:51 Kenalog 40 mg/mL suspension for injection [address]/Pharmacy #[id number], [address] [place], [address], 09:13:50 lidocaine (PF) 10 mg/mL (1 %) injection solution 2022 [id number] [place], [address], 09:13:50 Patient TargetsNo targets recorded. 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 Active 2021 Iliotibia l band syndrome affecting left lower leg Not Available [facility] 5 23:09:44 Arthritis of left knee joint 99244014922 68745 Active 2021 Arthritis of knee, left Not Available [facility] 5 23:09:45 Lumbar radiculop athy 375736461 Active 2021 Lumbar back pain with radiculop athy affecting left lower extremity Not Available [facility] 5 23:09:45 Effusion of joint of left knee 01705675314 9105 Active 2021 Effusion of left knee joint Not Available [facility] 5 23:09:46 Patellofe moral syndrome of left knee 09850484227 04436 Active 2022 LAM DOVER PA-C [address], [place], [address] , [place] [facility] 3 09:12:58 Pain of left knee joint 34524570326 4107 Active 2022 LAM DOVER PA-C [address], [place], [address] , [place] [facility], [facility] 3 08:42:34 Patellofe moral syndrome of right knee 23702609367 56876 Active 2022 LAM DOVER PA-C [address] [facility],[address], [place], [address] , [facility] 3 08:58:15 Problem Notes None recorded. Procedures Surgical History Date Name Laterality Status Provider Name and Address Organization Details Recorded Time 3 Knee Joint/Bursa Asp & Inj completed LAM DOVER PA-C [address] [facility],[address], [place], [address], [facility], P 07/09/2022 09:11:55 Knee Surgery completed Tresa Ibrahim [facility], P 07/09/2022 08:36:30 Shoulder Surgery completed Tresa Ibrahim [facility], P 07/09/2022 08:36:42 Head or Neck Surgery completed Tresa Ibrahim [facility], P 07/09/2022 08:36:51 excision of bunion completed [facility], P 09/14/2022 08:44:08 repair of meniscus completed [facility], P 09/14/2022 08:45:22 Imaging Results None recorded. Procedure Notes None recorded. Medical Equipment None Reported. Allergies Allergen ID Allergen Name Allergen Category Reaction Reaction Severity Criticality Documentation Date Start Date Code Code System Note Provider Name and Address Organization Details Recorded Time 2161 amoxicill in medicatio n Not available Not available Not available 07/09/2022 723 RxNorm Tresa travis [facility], P 3 08:34:43 2162 adhesive tape environme nt,medica tion Not available Not available Not available 07/09/2022 Tresa travis [facility], P 3 08:34:51 Medications Name Sig [...] Updated DateTime 09/14/2022 152.4 cm 27.7 kg/m2 94411.[address] [place] [facility], P 09/14/2022 08:41:28 Social History None recorded. [...] Time Father Family history of malignant neoplasm [email or web address] Not available 2022 08:35:51 Father Hypertensive disorder Not available 2022 08:36:03 Father Hypercholest erolemia Not available 2022 08:43:41 Mother Family history of malignant neoplasm Not available 2022 08:35:51 Sister Family history of malignant neoplasm [email or web address] Not available 2022 08:35:51 Medical History No medical history recorded. Gynecological HistoryNo gynecological history recorded. Obstetrics History GPAL:G 0 P 0 0 0 0 Past Encounters Encounter ID Performer Location Encounter Start Date Encounter Closed Date Diagnosis/Indication Diagnosis SNOMED-CT Code Diagnosis ICD10 Code Diagnosis IMO Codes Diagnosis Note [id number] YADIRA HERNANDEZ [address] [address] 07/09/2022 08:29:07 07/09/2022 09:05:28 Pain of left knee joint 4393827487 76122 M25.562 Patellofem oral syndrome of left knee 4991490897 488398 M22.2X2 [id number] YADIRA HERNANDEZ [address] [address] 08/17/2022 08:26:42 08/17/2022 08:46:02 Pain of left knee joint 0843432412 00447 M25.562 Patellofem oral syndrome of left knee 6968122418 972748 M22.2X2 [id number] YADIRA HERNANDEZmarely [address] [address] [place] [address] 09/14/2022 08:30:19 09/14/2022 08:48:19 Pain of left knee joint 8993727174 15577 M25.562 Patellofem oral syndrome of left knee 5631094787 140137 M22.2X2 Health Concerns Section Related Observation LastModified by Organization Detai ls LastModified Time None Recorded Concern Status LastModified by Organization Details LastModified Time None Recorded Advance Directives Directive None Recorded Payers Insurance Date Sequence Insurance Name Policy Number Policy Shaw Covered Member ID Shaw Member ID Guarantor Name 09/14/2022 1 JUAN MOBLEY (PPO) Jacque Blankenship [id number] Jacque Blankenship Notes Date Note Type [...] treatment. LAM DOVER PA-C [address] [facility] [address], [place], [address], [place] [facility] 07/09/2022 09:15:39 3 text/html Assessment & Plan date of visit 3Pleasant 52-year-old female with likely arthritic flare of her left knee versus patellofemoral syndrome. I had a lengthy discussion with patient guarding management. She does not elicit any mechanical symptoms that are reproducible. We did discuss aloc-cfq-wtedggh treatment modalities however she did opt for [...] formal physical therapy. LAM DOVER PA-C [address] [facility],[address] [address], [place], [address], [place] [facility], [facility] 08/17/2022 08:55:59 3 text/html Assessment & Plan: year-old female following up on her left knee due to patellofemoral syndrome treated with cortisone injection on 07/09/2022. With no notable improvement. Still ongoing lingering symptoms she does not know she has underlying mild arthritic change we did discuss viscosupplementation injections. As well as uuxk-iek-srtnwqp treatments and physical therapy. She is amenable [...] reduced her symptoms. LAM DOVER PA-C [address] [facility],[address], [place], [address], [place] [facility] 09/14/2022 08:59:14 OBGyn Episode No OBEpisode recorded.
== END 2025-02-14 09:28 | disposition home or self-care (01) ==
LOC: HO.HMGCLDS 09:27
PROVIDERS: PCP Internal Medicine; Visit Provider Internal Medicine
DX: Z00.00 Encounter for general adult medical examination without abnormal findings (principal); E78.5 Hyperlipidemia, unspecified; E55.9 Vitamin D deficiency, unspecified; K21.9 Gastro-esophageal reflux disease without esophagitis; K64.4 Residual hemorrhoidal skin tags; M54.16 Radiculopathy, lumbar region; F41.8 Other specified anxiety disorders; Z86.0101 Personal history of adenomatous and serrated colon polyps
CPT/HCPCS: 36415; 80048; 80061; 82306; 84450; 84460; 85014; 85018